=== PATIENT | female | born 1940 | race African-American/Black ===

== ENCOUNTER 2021-12-01 14:41 | Inpatient (IN) | payer MEDICARE, SELFPAY ==
--- NOTE | ~2021-12-01 | XR_ITS ---
EXAMINATION: XR chest 1V portable DATE: 12/09/2021 05:36 INDICATION: Hypoxia. TECHNIQUE: A single frontal view of the chest was obtained. COMPARISON: Chest single view 12/04/2021, chest CT 12/04/2021 FINDINGS: There is mild atelectasis at the lung bases. No pleural effusion or pneumothorax. The heart size is normal. IMPRESSION: 1. Mild atelectasis at the lung bases. Reviewed, dictated and finalized at location A.
--- NOTE | ~2021-12-01 | XR_ITS ---
EXAMINATION: XR chest 1V portable DATE: 12/04/2021 14:02 INDICATION: Dyspnea TECHNIQUE: frontal view of the chest was obtained. COMPARISON: Chest radiograph dated 12/01/2021 FINDINGS: And seen is mild elevation of the left hemidiaphragm. New mild bibasilar opacities which could repres ent atelectasis or pneumonia. Pulmonary vascular congestion without uma pulmonary edema. No pleural effusion or pneumothorax. Cardiomegaly. Tortuous and atherosclerotic thoracic aorta. IMPRESSION: 1. New mild bibasilar opacities which could represent atelectasis or pneumonia. 2. Cardiomegaly with pulmonary vascular congestion but without uma pulmonary edema. Reviewed, dictated and finalized at location A.
--- NOTE | ~2021-12-01 | CT_ITS ---
EXAMINATION: CTA chest PE protocol DATE: 12/04/2021 16:32 INDICATION: Dyspnea. Increased oxygen demand. Elevated d-dimer. TECHNIQUE: Computed tomography angiography (CTA) of the chest was performed with 100 mL Omnipaque-350 intravenous contrast timed to evaluate the pulmonary arteries. Coronal maximum intensity projection 3D-reconstructions were created by the technologist. Automated exposure control and iterative reconst ruction technique were employed. Exam dose: 287.50 mGy-cm total exam DLP. COMPARISON: 12/04/2021 portable AP chest FINDINGS: There is diagnostic contrast enhancement of the pulmonary arteries and no evidence of pulmo nary embolism. No thoracic aortic aneurysm or dissection is evident. Cardiomegaly. Coronary artery calcifications. No pericardial effusion. No hilar or mediastinal mass lesion or lymphadenopathy. Prominent emphysematous changes of the lungs. There is mild infiltrate or atelectasis in the dependent upper lobes and to a greater extent in the d ependent lower lobes. IMPRESSION: No evidence of pulmonary embolus Emphysema Bilateral upper and to a greater extent lower lobe dependent atelectasis/infiltrate Cardiomegaly, coronary atherosclerosis Reviewed, dictated and finalized at Location A. Reviewed, dictated and finalized at location A. IMPRESSION: No evidence of pulmonary embolus Emphysema Bilateral upper and to a greater extent lower lobe dependent atelectasis/infilt rate Cardiomegaly, coronary atherosclerosis
--- NOTE | ~2021-12-01 | XR_ITS ---
XR chest 2V DATE: 12/01/2021 17:51 INDICATION: Preoperative evaluation for foot surgery. History of hypertension. TECHNIQUE: AP and lateral views COMPARISON: None FINDINGS: There is prominent elevation of the left leaf of the diaphragm. Cardiomegaly. Aortic unfolding. No hilar or mediastinal enlargement. There is mild atelectasis or scarring at the lung bases. No pulmonary consolidation, pleural effusion , pulmonary vascular congestion or pneumothorax is detected. Diffuse osteopenia. There is mild loss of height and anterior wedging of a midthoracic vertebral body. IMPRESSION: Mild atelectasis or scarring at the lung bases Cardiomegaly Elevation of left diaphragm Reviewed, dictated and finalized at location A.
[2021-12-01 15:08] VITALS: BMI 23.0
[2021-12-01 15:20] VITALS: BP 112/78; PULSE 77; RESP 16; TEMP 35.9; O2SAT 97; BMI 23.0
--- NOTE | 2021-12-01 15:45 | ADMGEN ---
This patient, Dorene Pathak, was admitted to [facility] Surg Room 307-01 at 1430. Patient/family oriented to hospital policies and general routines including ID bracelet, bed and alarms, visiting hours, pain management, procedures, bathroom and other care routines, personal items, smoking policy, room service/diet, and visiting hours. Information on how to activate the Rapid Response Team has been discussed. Patient/Family are encouraged to report perceived risks to care and to ask questions if they do not understand what they are told or what they should do.
--- NOTE | 2021-12-01 17:11 | PM.IMHP ---
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 She had an unsuccessful peripheral vascular intervention by Dr. Kern at another facility. The leg was felt to be non-revascularizable and BKA was recommended. She was also treated by Levi Gunderson DPM. She came to my office this afternoon with persistent constant pain in the foot and a larger area of fouls smelling gangrenous ulcer of the left foot exposing tendon and bone. After discussion, she is admitted now with plans for left below knee amputation tomorrow. She has been living by herself, ambulating on her left leg, changing her own dressings with mupirocin and gauze. She is a chronic smoker. Review of Systems Review of Systems: All systems reviewed & are unremarkable except as noted in HPI and below (HPI and those noted below.) Constitutional: Constitutional: Denies chills and Denies fever(s) Cardiovascular: Cardiovascular: Denies chest pain, Denies diaphoresis, Denies dyspnea and Denies paroxysmal nocturnal dyspnea Respiratory: Respiratory: Denies chest congestion, Denies cough and Denies dyspnea Gastrointestinal: Gastrointestinal: Denies abdominal pain, Denies constipation, Denies GI cramping, Denies heartburn and Denies nausea Integumentary/Breasts: Skin/Breast: Denies lesions and Denies rash PMFSH Past Medical History Medical History High cholesterol Hypertension Surgical History Surgical History H/O bilateral cataract extraction History of recent vascular procedure Family History Family History Father Alcoholism Mother Hypertension Other Diabetes mellitus Kidney disease Social History Social History Smoking packs per day: 0.5 Smoking cigarettes per day: 10.0 Years smoked: 50 Smoking pack-years: 25.00 Smoking status: Current every day smoker Tobacco type: cigarettes Alcohol intake: never Substance use: never Substance use type: does not use 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 Spiritual care concerns: No Meds Home Medications and Allergies Home Medications Medication Instructions Recorded Confirmed Type rosuvastatin 10 mg tablet 10 mg PO DAILY 11/27/21 12/01/21 History tobramycin 0.3 % eye drops 1 drp EACH EYE Q4H 11/27/21 12/01/21 History diltiazem HCl [Matzim LA] 240 mg PO DAILY 12/01/21 12/01/21 History naproxen sodium 220 mg PO Q8H PRN 12/01/21 12/01/21 History tramadol 50 mg PO Q8H PRN 12/01/21 12/01/21 History Allergies Allergy/AdvReac Type Severity Reaction Status Date / Time Sulfa (Sulfonamide Allergy Severe ITCHING, Verified 12/01/21 13:25 Antibiotics) RASH quinine Allergy Mild RINGING IN Verified 12/01/21 13:25 EARS, SLURRED SPEECH, DROOPING EYE LID pravastatin AdvReac Intermediate rash Verified 12/01/21 13:25 ezetimibe AdvReac rash Verified 12/01/21 13:25 [From Vytorin 10-10] Quinidine-Quinine Analogues AdvReac shortness Verified 12/01/21 13:25 (Cincho of breath, slurred speech simvastatin AdvReac rash Verified 12/01/21 13:25 [From Vytorin 10-10] Vital Signs Vital Signs - 24 hr 12/01/21 15:20 Temperature 35.9 C L Pulse Rate 77 Respiratory Rate 16 Blood Pressure 112/78 Pulse Oximetry 97 Exam Const: General: comfortable, no acute distress, alert and awake HENMT: Head: normocephalic and atraumatic Mouth: Yes Normal oral and palatal mucosa present Eyes: Conjunctivae: conjunctivae normal Pupils: Equal, round and reactive pupils present EOM: EOMs intact bilaterally Neck: Neck: normal visu
[2021-12-01 17:56] LABS: Basophils Absolute Auto 0.1 K/mm3 (0.0-0.1); Basophils Percent Auto 0.8 % (0.2-1.2); Eosinophils Absolute Auto 0.4 K/mm3 (0-0.3); Eosinophils Percent Auto 3.8 % (0-4.4); Hematocrit 34.9 % (37.0-47.0); Hemoglobin 10.8 g/dL (12.0-15.0); Immature Granulocyte Absolute 0.04 K/mm3 (0.00-0.031); Immature Granulocyte Percent A 0.4 % (0-0.5); Lymphocytes Absolute Auto 2.13 K/mm3 (0.9-3.2); Lymphocytes Percent Auto 23.4 % (18.3-44.2); Mean Corpuscular HGB Conc 30.9 g/dl (32-36); Mean Corpuscular Hemoglobin 28.2 pg (26-34); Mean Corpuscular Volume 91.1 fl (80-100); Mean Platelet Volume 9.4 fl (7.4-10.4); Monocytes Absolute Auto 0.9 K/mm3 (0.1-0.6); Monocytes Percent Auto 9.9 % (2.6-8.5); Neutrophils Absolute Auto 5.6 K/mm3 (1.3-6.7); Neutrophils Percent Auto 61.7 % (45.5-73.1); Platelet Count Result 346 k/mm3 (150-375); Red Blood Count 3.83 M/mm3 (4.2-5.4); Red Cell Distribution Width 13.3 % (11.5-14.5); White Blood Count 9.1 K/mm3 (4.5-10.0)
[2021-12-01 18:08] LABS: INR 1.1; Prothrombin Time 13.4 Seconds (11.1-14.7)
[2021-12-01 18:09] LABS: Partial Thromboplastin Time 43.4 SECONDS (22.3-36.8)
[2021-12-01 18:12] LABS: Anion Gap 5 mmol/L (8-16); Blood Urea Nitrogen 14 mg/dL (7-17); Calcium 8.5 mg/dL (8.4-10.2); Carbon Dioxide 28 mmol/L (22-30); Chloride 98 mmol/L (98-107); Estimated CRCL calculation 35 ml/min; Estimated Glomerular Filt Rate > 60; Glucose 109 mg/dL (65-110); Potassium 3.8 mmol/L (3.4-5.0); Sodium 131 mmol/L (137-145)
[2021-12-01] MEDS: ceFAZolin 2 GM/D5W 50 ML 2 GM/50 ML BAG IVPB (18:32)
[2021-12-01] MEDS: MORPHINE SULFATE (*CRX) 2 MG/ML INJ IV PUSH ×2 (18:37→22:16)
[2021-12-01] MEDS: DEXTROSE 5%/0.9% SOD CHL 1,000 ML 60 ML IV CONT (18:37)
[2021-12-01] MEDS: FAMOTIDINE 20 MG/2 ML VIAL IV PUSH (20:43)
[2021-12-01] MEDS: TOBRAMYCIN SULFATE 0.3% OPHTH SOLN 5 ML 1 DROP EACH EYE (20:43)
[2021-12-01 22:00] VITALS: BP 120/53; PULSE 73; RESP 16; TEMP 36.8; O2SAT 93
[2021-12-02] VITALS (12 sets, daily range): BP systolic 108–150; BP diastolic 52–82; PULSE 60–96; RESP 18–20; TEMP 36.1–37; O2SAT 90–100
[2021-12-02] MEDS: ceFAZolin 2 GM/D5W 50 ML 2 GM/50 ML BAG IVPB ×3 (02:19→17:35)
--- NOTE | 2021-12-02 08:30 | PM.IMCN ---
Assessment and Plan Assessment and plan (1) Non-healing wound of left lower extremity: Code(s): S81.802A - Unspecified open wound, left lower leg, initial encounter Status: Chronic Assessment and Plan: Reported 1 month of non-healing foot wound GS consulted Surgical procedure scheduled for today Morphine and tramadol for pain Cefazolin 2gm Q8Hr Post op care per general surgery NPO EKG ordered (2) Ischemic pain of left foot: Code(s): M79.672 - Pain in left foot; I99.8 - Other disorder of circulatory system Status: Chronic Assessment and Plan: Pain medications on board Surgery consulted Scheduled BKA See above (3) Gangrene of left foot: Code(s): I96 - Gangrene, not elsewhere classified Status: Chronic Assessment and Plan: Multiple areas of noted gangrene Antibiotics on board BKA scheduled for today (4) Tobacco abuse: Code(s): Z72.0 - Tobacco use Status: Chronic Assessment and Plan: Patch ordered Smoking cessation given (5) Hyperlipidemia: Code(s): E78.5 - Hyperlipidemia, unspecified Status: Acute Assessment and Plan: Continue home crestor (6) Afib: Code(s): I48.91 - Unspecified atrial fibrillation Status: Acute Assessment and Plan: Reports tachycardia Continue home Cardizem Trend heart rate EKG ordered yesterday, still not in chart will keep an eye out for it Additional Plan Thank you for letting us work with you on this case please call with any needs or questions HPI Data of Consult Consult date: 12/02/21 Requesting Physician: Harlan Vasquez MD Primary Care Provider: Raj Zamorano, Consult Narrative Narrative: Dorene Pathak is a 81 year old female Who has a past medical history of hyperlipidemia, hypertension who was a direct admit from Dr. Elizalde office. Patient has been battling a leg wound for about a month with severe pain and nonhealing. Patient stated that she has been going [facility] on Wednesdays for dressing changes and close monitoring. She stated that most the time her pain is a 10/10 and sometimes even a 10+. She stated that the pain is like a spasm and the whole body jerks. She does admit to eating okay and she has no Appetite changes at this time. she denies any chest pain, shortness of breath, nausea, vomiting, sweats, fevers, chills, diarrhea, constipation, numbness and tingling, lightheadedness, dizziness. did ask patient about her medications which she is on diltiazem. Patient stated she does not know why she is on diltiazem However she did have few times where her heart rate was very high. Since she has been taking the Cardizem heart rate has been normal. we were asked to consult for pre Surgical Services. Risk for surgery is moderate due to age and tobacco history. Review of Systems Review of Systems: All systems reviewed & are unremarkable except as noted in HPI and below PMFSH Past Medical History Medical History High cholesterol Hypertension Surgical History Surgical History H/O bilateral cataract extraction History of recent vascular procedure Family History Family History Father Alcoholism Mother Hypertension Other Diabetes mellitus Kidney disease Social History Social History (Updated 12/02/21 @ 13:27 by LATOYA Sher) Social History: Patient is a Christianity and lives by herself. she has 3 adult children who are sons and 2 grandchildren. Patient does not have any pets and wishes to be a full code at this time Smoking packs per day: 0.5 Smoking cigarettes per day: 10.0 Years smoked: 50 Smoking pack-years: 25.00 Smoking status: Current every d
[2021-12-02] MEDS: FAMOTIDINE 20 MG/2 ML VIAL IV PUSH (09:03)
[2021-12-02] MEDS: TOBRAMYCIN SULFATE 0.3% OPHTH SOLN 5 ML 1 DROP EACH EYE ×3 (09:06→20:28)
[2021-12-02] MEDS: traMADol HCL (*CRX) 50 MG TABLET PO (09:13)
--- NOTE | 2021-12-02 11:27 | PC.NURSE ---
To OR per [bed], IV [22 G L FA]. Report given to [OR, Trinity, RN Left at 1124 AM
[2021-12-02] MEDS: LACTATED RINGERS 1,000 ML 30 ML IV CONT ×2 (11:35→14:05)
--- NOTE | 2021-12-02 11:43 | WPDHPUPDATE1 ---
History and Physical Update Update Date/Time: 12/02/21 11:43 History and Physical has been reviewed, including an updated exam of the patient. There are NO changes in the patient's condition. Risks, benefits, and alternatives have been discussed and questions answered. Patient agrees to proceed with procedure.
--- NOTE | 2021-12-02 11:54 | WPDANESEPPF ---
Anes - Initial Pre Proc Eval Procedure: Operation Date: 12/02/21 13:00 Proposed Procedures p Left Below Knee Amputation - Harlan Vasquez MD Date/Time: 12/02/21 11:54 Surgeon: Harlan Vasquez MD Pre Op Diagnosis: Gangrene to Left Foot Patient Data Age: 81 Gender: F Height: 1.57 m Weight: 57.1 kg Last Vital Signs Temp 97 F L 12/02/21 06:00 Pulse 95 12/02/21 06:00 Resp 18 12/02/21 06:00 BP 140/75 12/02/21 06:00 Pulse Ox 90 12/02/21 06:00 Allergies Allergy/AdvReac Type Severity Reaction Status Date / Time Sulfa (Sulfonamide Allergy Severe ITCHING, Verified 12/01/21 13:25 Antibiotics) RASH quinine Allergy Mild RINGING IN Verified 12/01/21 13:25 EARS, SLURRED SPEECH, DROOPING EYE LID pravastatin AdvReac Intermediate rash Verified 12/01/21 13:25 ezetimibe AdvReac rash Verified 12/01/21 13:25 [From Vytorin 10-10] Quinidine-Quinine Analogues AdvReac shortness Verified 12/01/21 13:25 (Cincho of breath, slurred speech simvastatin AdvReac rash Verified 12/01/21 13:25 [From Vytorin 10-10] Home Medications Medication Instructions Recorded Confirmed Type rosuvastatin 10 mg tablet 10 mg PO DAILY 11/27/21 12/01/21 History tobramycin 0.3 % eye drops 1 drp EACH EYE Q4H 11/27/21 12/01/21 History diltiazem HCl [Matzim LA] 240 mg PO DAILY 12/01/21 12/01/21 History naproxen sodium 220 mg PO Q8H PRN 12/01/21 12/01/21 History tramadol 50 mg PO Q8H PRN 12/01/21 12/01/21 History Laboratory Tests 12/01/21 12/01/21 12/01/21 17:43 17:43 17:43 WBC 9.1 K/mm3 K/mm3 (4.5-10.0) RBC 3.83 M/mm3 L M/mm3 (4.2-5.4) Hgb 10.8 g/dL L g/dL (12.0-15.0) Hct 34.9 % L % (37.0-47.0) MCV 91.1 fl fl (80-100) MCH 28.2 pg pg (26-34) MCHC 30.9 g/dl L g/dl (32-36) RDW 13.3 % % (11.5-14.5) Plt Count 346 k/mm3 k/mm3 (150-375) MPV 9.4 fl fl (7.4-10.4) Immature Gran % (Auto) 0.4 % % (0-0.5) Neut % (Auto) 61.7 % % (45.5-73.1) Lymph % (Auto) 23.4 % % (18.3-44.2) [place] % (Auto) 9.9 % H % (2.6-8.5) Eos % (Auto) 3.8 % % (0-4.4) Baso % (Auto) 0.8 % % (0.2-1.2) Lymph # (Auto) 2.13 K/mm3 K/mm3 (0.9-3.2) [place] # (Auto) 0.9 K/mm3 H K/mm3 (0.1-0.6) Eos # (Auto) 0.4 K/mm3 H K/mm3 (0-0.3) Baso # (Auto) 0.1 K/mm3 K/mm3 (0.0-0.1) Abs Immat Gran (auto) 0.04 K/mm3 H K/mm3 (0.00-0.031) Absolute Neuts (auto) 5.6 K/mm3 K/mm3 (1.3-6.7) Absolute Nucleated RBC 0.0 K/mm3 K/mm3 (0.0-0.012) Nucleated RBC % 0.0 % % (0.0-0.2) PT 13.4 Seconds Seconds (11.1-14.7) INR 1.1 APTT 43.4 SECONDS H SECONDS (22.3-36.8) Sodium 131 mmol/L L mmol/L (137-145) Potassium 3.8 mmol/L mmol/L (3.4-5.0) Chloride 98 mmol/L mmol/L (98-107) Carbon Dioxide 28 mmol/L mmol/L (22-30) Anion Gap 5 mmol/L L mmol/L (8-16) BUN 14 mg/dL mg/dL (7-17) Creatinine 0.90 mg/dL mg/dL (0.7-1.0) Estim Creat Clear Calc 35 ml/min ml/min Estimated GFR > 60 (59 - ) Glucose 109 mg/dL mg/dL (65-110) Calcium 8.5 mg/dL mg/dL (8.4-10.2) Blood Type Antibody Screen 12/01/21 17:43 WBC RBC Hgb Hct MCV MCH MCHC RDW Plt Count MPV Immature Gran % (Auto) Neut % (Auto) Lymph % (Auto) [place] % (Auto) Eos % (Auto) Baso % (Auto) Lymph # (Auto) [place] # (Auto) Eos # (Auto) Baso # (Auto) Abs Immat Gran (auto) Absolute Neuts (auto) Absolute Nucleated RBC Nucleated RBC % PT INR APTT Sodium Potassium Chloride
[2021-12-02 14:28] LABS: Glucose Point of Care 99 mg/dl (65-105)
--- NOTE | 2021-12-02 14:44 | W.PM.PROC2 ---
Procedure Note - Detailed Date of Procedure 12/02/21 Pre-op Diagnosis Gangrene to Left Foot Post-op Diagnosis Same Procedure Performed Left below-knee amputation Surgeon Harlan Vasquez MD [employer] Operator Krista BOLANOS Anesthesia General Indications Patient has had a nonhealing wound on the instep of her foot for at least a month. She had an attempted vascular reconstruction which was not successful. She has seen Podiatry. Her foot has gotten worse. She was seen yesterday in the office for the 1st time. She had a foul-smelling gangrenous left foot with open wound on the instep. There was exposed tendon. She was having ischemic pain. She was admitted to the hospital and started on IV antibiotics. She is taken to surgery now for left below-knee amputation. Findings Tissues appeared healthy although severe atherosclerosis and the lower extremity arteries. Perfusion of the amputation site seemed to be quite adequate to heal the below-knee amputation. Description of Procedure Patient was taken to surgery and induced into general anesthesia. The left leg was prepped and draped starting at about the mid thigh on down. The area of the ischemic gangrenous foot was wrapped and covered so it was sterile and in the field. A proposed posterior flap incision was drawn on the skin. Incision was then made over lines previously drawn. Cautery was used for hemostasis as well as the superficial dissection. The subcutaneous tissues were quite edematous from the gangrenous foot on distal. We dissected out the tibia below the knee. I also divided muscles on either side of the tibia. Vascular structures that were encountered were doubly clamped divided and ligated with Vicryl ties. The saphenous vein was doubly ligated divided and tied with 3-0 Vicryl. The fibula was found and was dissected from its surrounding tissues. The peroneal vessels were avoided. I then used the periosteal elevator and exposed the fibula fairly high in the amputation stump. I continued dissection around the tibia. The periosteal elevator was then used to mobilize the periosteum proximally on the tibia. I used the Gigli saw to divide the fibula. An oscillating saw was used to divide the tibia. I then used the oscillating saw to remove an angled cut of the anterior edge of the distal tibia so it would not create pressure on the flap. The rasp was used to smooth the bone edges. The popliteal vessels were then dissected. They were clamped divided and each side ligated with 2 0 Vicryl ties. Popliteal nerve was divided with the cautery. Perineal vessels and tibial vessels were divided after being clamped. Each was tied as well. I then used the amputation knife and divided the remaining attachments to the posterior flap. The left lower leg was passed off as a specimen. We exposed the posterior flap and the amputation site. Cautery was used to achieve good hemostasis. The wound was thoroughly irrigated with warm saline. We checked again for hemostasis which was adequate. I then sutured the subcutaneous fascia from the posterior flap to the anterior edge of the amputation wound. This was done in with interrupted 2 0 Vicryl suture. These suture were placed multiple times so there was a cm or less between suture. All looked good. The muscles and subcutaneous were edematous as I mentioned before but not to a degree that would impair healing. We then closed the skin with vertical mattress sutures of 2-0 nylon in interrupted fashion. The amputation stump was then washed with saline and dried. Xeroform gauze was placed over the incision. Fluffs were placed and a wrap of Kerlix was placed. We then placed a couple of layers of Webril over the left leg including the stump of the amputation. A posterior plaster splint was placed keeping the left knee in extension. We placed additional Webril as well as Kerlix roll or over the plaster. The plaster was held in place until it was hardened. Add
--- NOTE | 2021-12-02 15:11 | SUR.PHASEI ---
DONALD IS ALERT AND ORIENTED, DENIES PAIN. STATES I'M DOING FINE . RESTING COMFORTABLY.
--- NOTE | 2021-12-02 15:59 | PC.NURSE ---
Returned from OR per bed. Report received from MARILY Bennett.
[2021-12-02] MEDS: LACTATED RINGERS 1,000 ML 100 ML IV CONT (17:34)
[2021-12-02 17:36] LABS: EDCOVIDSCREEN Negative (Negative)
[2021-12-02] MEDS: HYDROcodone/acetaminophen (*CRX) 7.5-325 MG TABLET 1 TAB PO (19:07)
[2021-12-02] MEDS: FAMOTIDINE 20 MG TABLET PO (20:28)
[2021-12-02] MEDS: ENOXAPARIN 30 MG/0.3 ML SYRINGE SUB-Q (20:28)
[2021-12-03] VITALS: BP 115/68; PULSE 91; RESP 20; TEMP 36.3; O2SAT 97
[2021-12-03] MEDS: ceFAZolin 2 GM/D5W 50 ML 2 GM/50 ML BAG IVPB ×3 (01:42→19:13)
[2021-12-03 04:00] VITALS: BP 134/65; PULSE 92; RESP 16; TEMP 36.1; O2SAT 90
[2021-12-03] MEDS: TOBRAMYCIN SULFATE 0.3% OPHTH SOLN 5 ML 1 DROP EACH EYE ×5 (05:32→20:29)
[2021-12-03] MEDS: LACTATED RINGERS 1,000 ML 100 ML IV CONT (05:32)
[2021-12-03 06:47] LABS: Alanine Aminotransferase 14 U/L (4-35); Albumin Level 2.8 g/dL (3.5-5.1); Alkaline Phosphatase 74 U/L (38-126); Anion Gap 5 mmol/L (8-16); Aspartate Amino Transferase 45 U/L (14-36); Bilirubin,Total 0.5 mg/dL (0.2-1.3); Blood Urea Nitrogen 9 mg/dL (7-17); Calcium 7.8 mg/dL (8.4-10.2); Carbon Dioxide 26 mmol/L (22-30); Chloride 93 mmol/L (98-107); Estimated CRCL calculation 35 ml/min; Estimated Glomerular Filt Rate > 60; Glucose 88 mg/dL (65-110); Magnesium 1.5 mg/dL (1.6-2.3); Potassium 3.8 mmol/L (3.4-5.0); Sodium 124 mmol/L (137-145)
[2021-12-03 06:53] LABS: Basophils Percent Auto 0.4 % (0.2-1.2); Eosinophils Absolute Auto 0.1 K/mm3 (0-0.3); Eosinophils Percent Auto 0.6 % (0-4.4); Hematocrit 32.1 % (37.0-47.0); Hemoglobin 10.4 g/dL (12.0-15.0); Immature Granulocyte Absolute 0.05 K/mm3 (0.00-0.031); Immature Granulocyte Percent A 0.5 % (0-0.5); Lymphocytes Absolute Auto 1.35 K/mm3 (0.9-3.2); Lymphocytes Percent Auto 13.9 % (18.3-44.2); Mean Corpuscular HGB Conc 32.4 g/dl (32-36); Mean Corpuscular Hemoglobin 28.3 pg (26-34); Mean Corpuscular Volume 87.5 fl (80-100); Mean Platelet Volume 9.5 fl (7.4-10.4); Monocytes Absolute Auto 0.9 K/mm3 (0.1-0.6); Monocytes Percent Auto 8.7 % (2.6-8.5); Neutrophils Absolute Auto 7.4 K/mm3 (1.3-6.7); Neutrophils Percent Auto 75.9 % (45.5-73.1); Platelet Count Result 298 k/mm3 (150-375); Red Blood Count 3.67 M/mm3 (4.2-5.4); White Blood Count 9.7 K/mm3 (4.5-10.0)
[2021-12-03 08:00] VITALS: BP 142/64; PULSE 95; RESP 16; TEMP 36.1; O2SAT 95; O2SAT 96
[2021-12-03 08:50] VITALS: O2SAT 95
[2021-12-03] MEDS: FAMOTIDINE 20 MG TABLET PO ×2 (09:08→20:28)
[2021-12-03] MEDS: ENOXAPARIN 30 MG/0.3 ML SYRINGE SUB-Q ×2 (09:08→20:28)
[2021-12-03] MEDS: ROSUVASTATIN 10 MG TABLET PO (09:09)
[2021-12-03] MEDS: MAGNESIUM SULF 4 GM/WATER100ML 4 GM/100 ML BAG IVPB (09:32)
--- NOTE | 2021-12-03 10:30 | PM.IMPN ---
Progress Note: A&P Assessment and Plan (1) Non-healing wound of left lower extremity: Code(s): S81.802A - Unspecified open wound, left lower leg, initial encounter Status: Chronic Assessment and Plan: POD 1 Reported 1 month of non-healing foot wound GS consulted Surgical procedure 12/02/21 New BKA noted Morphine and tramadol for pain Cefazolin 2gm Q8Hr Post op care per general surgery Low fiber diet EKG ordered Will need placement for rehab PT/OT tomorrow (2) Hyponatremia: Code(s): E87.1 - Hypo-osmolality and hyponatremia Status: Acute Assessment and Plan: Sodium was 131, today 124 Could be related to surgical procedure Check urine studies LR changed to NS Trend labs Q4hr to ensure patient is not correcting too fast (3) Ischemic pain of left foot: Code(s): M79.672 - Pain in left foot; I99.8 - Other disorder of circulatory system Status: Chronic Assessment and Plan: Pain medications on board Surgery consulted Scheduled BKA See above (4) Gangrene of left foot: Code(s): I96 - Gangrene, not elsewhere classified Status: Chronic Assessment and Plan: Multiple areas of noted gangrene Antibiotics on board BKA scheduled 12/02/21 (5) Tobacco abuse: Code(s): Z72.0 - Tobacco use Status: Chronic Assessment and Plan: Patch ordered Smoking cessation given (6) Hyperlipidemia: Code(s): E78.5 - Hyperlipidemia, unspecified Status: Acute Assessment and Plan: Continue home crestor (7) Afib: Code(s): I48.91 - Unspecified atrial fibrillation Status: Acute Assessment and Plan: Reports tachycardia Continue home Cardizem Trend heart rate EKG ordered yesterday, still not in chart will keep an eye out for it Time Spent With Patient Time with patient: Greater than 35 minutes Subjective Date/time seen: 12/03/21 10:30 Interval history: 12/02/21 Dorene Pathak is a 81 year old female Who has a past medical history of hyperlipidemia, hypertension who was a direct admit from Dr. Elizalde office. Patient has been battling a leg wound for about a month with severe pain and nonhealing. Patient stated that she has been going to [facility] on Wednesdays for dressing changes and close monitoring. She stated that most the time her pain is a 10/10 and sometimes even a 10+. She stated that the pain is like a spasm and the whole body jerks. She does admit to eating okay and she has no Appetite changes at this time. she denies any chest pain, shortness of breath, nausea, vomiting, sweats, fevers, chills, diarrhea, constipation, numbness and tingling, lightheadedness, dizziness. did ask patient about her medications which she is on diltiazem. Patient stated she does not know why she is on diltiazem However she did have few times where her heart rate was very high. Since she has been taking the Cardizem heart rate has been normal. we were asked to consult for pre Surgical Services. Risk for surgery is moderate due to age and tobacco history. 12/03/21 1030 patient was on the phone I walked in to examine her. She stated that she has was uncomfortable and would like to pillow removed from under her leg. She did say that she had pain especially when she was around or they work with her leg. She denies any chest pain, nausea, vomiting, diarrhea, shortness of breath, weakness or fatigue. She did state that she was having hard time staying awake today. Sodium was noted to be low at 124. Patient was started on IV fluids for correction. Will continue to monitor sodium every 4 hours for right now. Review of Systems Review of Systems: All systems reviewed & are unremarkable except as noted in HPI and below Exam Const: General: cooperative, healthy appearing, no acute distress, well developed, alert and awake
--- NOTE | 2021-12-03 10:30 | P.PNIM_ITS ---
Progress Note: A&P Assessment and Plan (1) Non-healing wound of left lower extremity: Code(s): S81.802A - Unspecified open wound, left lower leg, initial encounter Status: Chronic Assessment and Plan: * POD 1 * Reported 1 month of non-healing foot wound * GS consulted * Surgical procedure 12/02/21 * New BKA noted * Morphine and tramadol for pain * Cefazolin 2gm Q8Hr * Post op care per general surgery * Low fiber diet * EKG ordered * Will need placement for rehab * PT/OT tomorrow (2) Hyponatremia: Code(s): E87.1 - Hypo-osmolality and hyponatremia Status: Acute Assessment and Plan: * Sodium was 131, today 124 * Could be related to surgical procedure * Check urine studies * LR changed to NS * Trend labs Q4hr to ensure patient is not correcting too fast (3) Ischemic pain of left foot: Code(s): M79.672 - Pain in left foot; I99.8 - Other disorder of circulatory system Status: Chronic Assessment and Plan: * Pain medications on board * Surgery consulted * Scheduled BKA * See above (4) Gangrene of left foot: Code(s): I96 - Gangrene, not elsewhere classified Status: Chronic Assessment and Plan: * Multiple areas of noted gangrene * Antibiotics on board * BKA scheduled 12/02/21 (5) Tobacco abuse: Code(s): Z72.0 - Tobacco use Status: Chronic Assessment and Plan: * Patch ordered * Smoking cessation given (6) Hyperlipidemia: Code(s): E78.5 - Hyperlipidemia, unspecified Status: Acute Assessment and Plan: * Continue home crestor (7) Afib: Code(s): I48.91 - Unspecified atrial fibrillation Status: Acute Assessment and Plan: * Reports tachycardia * Continue home Cardizem * Trend heart rate * EKG ordered yesterday, still not in chart will keep an eye out for it Time Spent With Patient Time with patient: Greater than 35 minutes Subjective Date/time seen: 12/03/21 10:30 Interval history: 12/02/21 Dorene Pathak is a 81 year old female Who has a past medical history of hyperlipidemia, hypertension who was a direct admit from Dr. Elizalde office. Patient has been battling a leg wound for about a month with severe pain and nonhealing. Patient stated that she has been going [facility] for dressing changes and close monitoring. She stated that most the time her pain is a 10/10 and sometimes even a 10+. She stated that the pain is like a spasm and the whole body jerks. She does admit to eating okay and she has no Appetite changes at this time. she denies any chest pain, shortness of breath, nausea, vomiting, sweats, fevers, chills, diarrhea, constipation, numbness and tingling, lightheadedness, dizziness. did ask patient about her medications which she is on diltiazem. Patient stated she does not know why she is on diltiazem However she did have few times where her heart rate was very high. Since she has been taking the Cardizem heart rate has been normal. we were asked to consult for pre Surgical Services. Risk for surgery is moderate due to age and tobacco history. 12/03/21 1030 patient was on the phone I walked in to examine her. She stated that she has was uncomfortable and would like to pillow removed from under her leg. She did say that she had pain especially when she was around or they work with her leg. She denie
[2021-12-03] MEDS: SODIUM CHLORIDE 0.9% IV 1,000 ML 100 ML IV CONT ×2 (10:44→21:13)
[2021-12-03 11:11] LABS: Sodium 124 mmol/L (137-145)
--- NOTE | 2021-12-03 13:06 | PM.PNGS ---
Progress Note: A&P Assessment and Plan (1) Non-healing wound of left lower extremity: Code(s): S81.802A - Unspecified open wound, left lower leg, initial encounter Status: Chronic Assessment and Plan: POD#1 and patient doing well. Pain well-controlled. Will plan on changing her dressing in the next 1-2 days. If she continues to do well, will plan on starting PT/OT tomorrow. Encourage IS use. Repeat labs tomorrow. (2) Ischemic pain of left foot: Code(s): M79.672 - Pain in left foot; I99.8 - Other disorder of circulatory system Status: Chronic (3) Gangrene of left foot: Code(s): I96 - Gangrene, not elsewhere classified Status: Chronic (4) Hyponatremia: Code(s): E87.1 - Hypo-osmolality and hyponatremia Status: Acute Assessment and Plan: Sodium down to 124 today. Patient tolerating oral intake, but has not taken in much orally due to not liking food. Hospitalist started IV fluids with normal saline and ordered further urine tests. Monitor labs. (5) Tobacco abuse: Code(s): Z72.0 - Tobacco use Status: Chronic Additional Plan I have discussed the patient's case and plan of care with Dr. Vasquez. Magnesium also slightly low and replaced with IV mag sulfate by Hospitalist this morning. Monitor labs. Subjective Subjective Date/Time Seen: 12/03/21 13:06 Post Op day: 1 (Left BKA) Patient reports: flatus and afebrile Interval history: Patient seen and examined. She reports feeling well today but a little loopy since surgery. She denies confusion or any neurological deficits. She denies any pain on my exam and has only taken one [place] yesterday evening. She denies nausea, vomiting, or bloating. She is tolerating oral intake, but does not like the food she has ordered therefore has not eaten much off her tray. No other complaints at this time. Review of Systems Review of Systems: All systems reviewed & are unremarkable except as noted in HPI and below Constitutional: Constitutional: Reports as per HPI, Reports no additional constitutional complaints, Denies chills and Denies fever(s) Cardiovascular: Cardiovascular: Reports no additional cardiovascular complaints, Denies chest pain and Denies leg edema Respiratory: Respiratory: Reports no additional respiratory complaints, Denies cough and Denies dyspnea Gastrointestinal: Gastrointestinal: Reports as per HPI and Reports no additional gastrointestinal complaints Neurologic: Reports system reviewed and no additional complaints, except as documented, Denies Abnormal speech present and Denies focal weakness Exam Const: General: comfortable, no acute distress, alert and awake Orientation/consciousness: patient oriented x3 Resp: Effort & Inspection: normal respiratory effort Auscultation: clear to auscultation bilaterally Cardio: Rate: regular rate Rhythm: regular rhythm GI: Inspection: non-distended GI Palp: Yes Soft to palpation and No Tenderness to palpation present (GI) Auscultation: normal bowel sounds Skin: General skin exam: normal color Neuro: General: moves all extremities and no focal motor deficits Speech: No Abnormal speech present Extrem: General: amputation noted (left BKA with post-op dressing in place and dry) and no edema (no right lower ext edema) Psych: Insight: Good insight present (Psych) Judgement: Good judgement present (Psych) Objective Data Vital Signs Vital Signs: Vital Signs - 24 hr 12/02/21 14:05 12/02/21 14:20 12/02/21 14:35 Temperature 98.6 F Pulse Rate 60 62 72 Respiratory Rate 18 20 20 Blood Pressure 108/59 L 121/62 118/67 Pulse Oximetry 100 97 100 12/02/21 14:50 12/02/21 15:05 12/02/21 15:40 Temperature 96.9 F L Pulse Rate 72 70 68 Respiratory Rate 20 20 20 Blood Pressure 110/67 110/58 L 110/63 Pulse Oximetry 97 97 93 12/02/21 15:56 12/02/21 16:24 12/02/21 20:00 Temperature 98.4 F 98.4 F 98 F Pulse Rate 77 74 94 Respiratory Rate 20 18 20 Blood Pres
[2021-12-03 15:09] LABS: Sodium 123 mmol/L (137-145)
[2021-12-03 16:00] VITALS: BP 134/54; PULSE 82; RESP 20; TEMP 36.4; O2SAT 93
--- NOTE | 2021-12-03 18:15 | PC.NURSE ---
Incentive spirometer provided to pt. Educated on use.
[2021-12-03 20:09] LABS: Sodium 125 mmol/L (137-145)
[2021-12-03 22:00] VITALS: BP 104/86; PULSE 96; RESP 34; TEMP 36.8
[2021-12-03 23:08] LABS: Sodium 124 mmol/L (137-145)
[2021-12-04] VITALS (7 sets, daily range): BP systolic 114–124; BP diastolic 59–76; PULSE 72–87; RESP 14–30; TEMP 36.2–36.9; O2SAT 84–100
[2021-12-04] MEDS: ceFAZolin 2 GM/D5W 50 ML 2 GM/50 ML BAG IVPB ×3 (01:37→17:41)
[2021-12-04 06:08] LABS: Basophils Absolute Auto 0.1 K/mm3 (0.0-0.1); Basophils Percent Auto 0.4 % (0.2-1.2); Eosinophils Percent Auto 0.3 % (0-4.4); Hematocrit 29.7 % (37.0-47.0); Hemoglobin 9.5 g/dL (12.0-15.0); Immature Granulocyte Percent A 0.8 % (0-0.5); Lymphocytes Absolute Auto 1.84 K/mm3 (0.9-3.2); Lymphocytes Percent Auto 13.8 % (18.3-44.2); Mean Corpuscular Hemoglobin 28.5 pg (26-34); Mean Corpuscular Volume 89.2 fl (80-100); Mean Platelet Volume 9.5 fl (7.4-10.4); Monocytes Absolute Auto 1.4 K/mm3 (0.1-0.6); Monocytes Percent Auto 10.4 % (2.6-8.5); Neutrophils Absolute Auto 9.9 K/mm3 (1.3-6.7); Neutrophils Percent Auto 74.3 % (45.5-73.1); Platelet Count Result 267 k/mm3 (150-375); Red Blood Count 3.33 M/mm3 (4.2-5.4); Red Cell Distribution Width 12.8 % (11.5-14.5); White Blood Count 13.3 K/mm3 (4.5-10.0)
[2021-12-04 06:21] LABS: Potassium 3.4 mmol/L (3.4-5.0)
[2021-12-04 06:23] LABS: Anion Gap 5 mmol/L (8-16); Blood Urea Nitrogen 6 mg/dL (7-17); Calcium 7.1 mg/dL (8.4-10.2); Carbon Dioxide 26 mmol/L (22-30); Chloride 94 mmol/L (98-107); Estimated CRCL calculation 39 ml/min; Estimated Glomerular Filt Rate > 60; Glucose 93 mg/dL (65-110); Magnesium 2.1 mg/dL (1.6-2.3); Sodium 125 mmol/L (137-145)
[2021-12-04] MEDS: ROSUVASTATIN 10 MG TABLET PO (09:53)
[2021-12-04] MEDS: FAMOTIDINE 20 MG TABLET PO ×2 (09:53→19:41)
[2021-12-04] MEDS: ENOXAPARIN 30 MG/0.3 ML SYRINGE SUB-Q ×2 (09:55→19:40)
[2021-12-04] MEDS: SODIUM CHLORIDE 0.9% IV 1,000 ML 100 ML IV CONT ×2 (09:55→19:41)
[2021-12-04] MEDS: TOBRAMYCIN SULFATE 0.3% OPHTH SOLN 5 ML 1 DROP EACH EYE ×3 (09:55→19:42)
--- NOTE | 2021-12-04 10:15 | PM.IMPN ---
Progress Note: A&P Assessment and Plan (1) Non-healing wound of left lower extremity: Code(s): S81.802A - Unspecified open wound, left lower leg, initial encounter Status: Chronic Assessment and Plan: POD 2 Reported 1 month of non-healing foot wound GS consulted Surgical procedure 12/02/21 New BKA noted Morphine and tramadol for pain Cefazolin 2gm Q8Hr Post op care per general surgery Low fiber diet EKG cancelled Will need placement for rehab PT/OT tomorrow (2) Acute respiratory failure: Code(s): J96.00 - Acute respiratory failure, unspecified whether with hypoxia or hypercapnia Status: Acute Assessment and Plan: Patient is noted to be tachypneic with an O2 saturation of 84. Supplemental oxygen has been provided at 3 L nasal cannula Patient is unable to complete full sentences and is tripoding. ABGs ordered and pending Chest x-ray shows pulmonary vascular congestion without pulmonary edema with a new mild bibasilar opacity which could represent atelectasis or pneumonia D-dimer is also being collected CTA might be beneficial as patient might be having a PE Continue to trend respiratory status (3) Hyponatremia: Code(s): E87.1 - Hypo-osmolality and hyponatremia Status: Acute Assessment and Plan: Sodium was 131, today 125 Could be related to surgical procedure Check urine studies LR changed to NS Trend labs Q4hr to ensure patient is not correcting too fast FENa score is 2.2 Looks like she is excreting sodium from the urinary system Nephrology consulted thank you for your help Will start sodium tabs for now (4) Ischemic pain of left foot: Code(s): M79.672 - Pain in left foot; I99.8 - Other disorder of circulatory system Status: Chronic Assessment and Plan: Pain medications on board Surgery consulted thank you for your recommendations Scheduled BKA See above (5) Gangrene of left foot: Code(s): I96 - Gangrene, not elsewhere classified Status: Chronic Assessment and Plan: Multiple areas of noted gangrene Antibiotics on board BKA scheduled 12/02/21 (6) Tobacco abuse: Code(s): Z72.0 - Tobacco use Status: Chronic Assessment and Plan: Patch ordered Smoking cessation given (7) Hyperlipidemia: Code(s): E78.5 - Hyperlipidemia, unspecified Status: Acute Assessment and Plan: Continue home crestor (8) Afib: Code(s): I48.91 - Unspecified atrial fibrillation Status: Acute Assessment and Plan: Reports tachycardia Continue home Cardizem Trend heart rate EKG cancelled at this time (9) D-dimer, elevated: Code(s): R79.89 - Other specified abnormal findings of blood chemistry Status: Acute Assessment and Plan: D. Dimer elevated at 1.52 CTA of the chest ordered Lovenox on board Continue to trend respiratory status Time Spent With Patient Time with patient: Greater than 35 minutes Subjective Date/time seen: 12/04/21 1015 Interval history: 12/02/21 Dorene Pathak is a 81 year old female Who has a past medical history of hyperlipidemia, hypertension who was a direct admit from Dr. Elizalde office. Patient has been battling a leg wound for about a month with severe pain and nonhealing. Patient stated that she has been going to [facility] on [facility] for dressing changes and close monitoring. She stated that most the time her pain is a 10/10 and sometimes even a 10+. She stated that the pain is like a spasm and the whole body jerks. She does admit to eating okay and she has no Appetite changes at this time. she denies any chest pain, shortness of breath, nausea, vomiting, sweats, fevers, chills, diarrhea, constipation, numbness and tingling, lightheadedness, dizziness. did ask patient about her medications which she is on
--- NOTE | 2021-12-04 10:15 | P.PNIM_ITS ---
Progress Note: A&P Assessment and Plan (1) Non-healing wound of left lower extremity: Code(s): S81.802A - Unspecified open wound, left lower leg, initial encounter Status: Chronic Assessment and Plan: * POD 2 * Reported 1 month of non-healing foot wound * GS consulted * Surgical procedure 12/02/21 * New BKA noted * Morphine and tramadol for pain * Cefazolin 2gm Q8Hr * Post op care per general surgery * Low fiber diet * EKG cancelled * Will need placement for rehab * PT/OT tomorrow (2) Acute respiratory failure: Code(s): J96.00 - Acute respiratory failure, unspecified whether with hypoxia or hypercapnia Status: Acute Assessment and Plan: * Patient is noted to be tachypneic with an O2 saturation of 84. * Supplemental oxygen has been provided at 3 L nasal cannula * Patient is unable to complete full sentences and is tripoding. * ABGs ordered and pending * Chest x-ray shows pulmonary vascular congestion without pulmonary edema with a new mild bibasilar opacity which could represent atelectasis or pneumonia * D-dimer is also being collected * CTA might be beneficial as patient might be having a PE * Continue to trend respiratory status (3) Hyponatremia: Code(s): E87.1 - Hypo-osmolality and hyponatremia Status: Acute Assessment and Plan: * Sodium was 131, today 125 * Could be related to surgical procedure * Check urine studies * LR changed to NS * Trend labs Q4hr to ensure patient is not correcting too fast * FENa score is 2.2 * Looks like she is excreting sodium from the urinary system * Nephrology consulted thank you for your help * Will start sodium tabs for now (4) Ischemic pain of left foot: Code(s): M79.672 - Pain in left foot; I99.8 - Other disorder of circulatory system Status: Chronic Assessment and Plan: * Pain medications on board * Surgery consulted thank you for your recommendations * Scheduled BKA * See above (5) Gangrene of left foot: Code(s): I96 - Gangrene, not elsewhere classified Status: Chronic Assessment and Plan: * Multiple areas of noted gangrene * Antibiotics on board * BKA scheduled 12/02/21 (6) Tobacco abuse: Code(s): Z72.0 - Tobacco use Status: Chronic Assessment and Plan: * Patch ordered * Smoking cessation given (7) Hyperlipidemia: Code(s): E78.5 - Hyperlipidemia, unspecified Status: Acute Assessment and Plan: * Continue home crestor (8) Afib: Code(s): I48.91 - Unspecified atrial fibrillation Status: Acute Assessment and Plan: * Reports tachycardia * Continue home Cardizem * Trend heart rate * EKG cancelled at this time (9) D-dimer, elevated: Code(s): R79.89 - Other specified abnormal findings of blood chemistry Status: Acute Assessment and Plan: * D. Dimer elevated at 1.52 * CTA of the chest ordered * Lovenox on board * Continue to trend respiratory status Time Spent With Patient Time with patient: Greater than 35 minutes Subjective Date/time seen: 12/04/21 1015 Interval history: 12/02/21 Dorene Pathak is a 81 year old female Who has a past medical history of hyperlipidemia, hypertension who was a direct admit from Dr. Elizalde office. Patient has been battling a leg wo
[2021-12-04 11:02] LABS: Creatinine Urine 42.5 mg/dL; Sodium Urine Random 146 meq/L; Urea Random Urine 204 MG/DL
--- NOTE | 2021-12-04 11:50 | PM.PNGS ---
Progress Note: A&P Assessment and Plan (1) Non-healing wound of left lower extremity: Code(s): S81.802A - Unspecified open wound, left lower leg, initial encounter Status: Chronic Assessment and Plan: Will order PT/OT today to start transferring patient. Still not having any post-op pain. Will plan on changing her dressing tomorrow. Elevate left lower extremity on a pillow while at rest. Repeat labs tomorrow. (2) Ischemic pain of left foot: Code(s): M79.672 - Pain in left foot; I99.8 - Other disorder of circulatory system Status: Chronic (3) Gangrene of left foot: Code(s): I96 - Gangrene, not elsewhere classified Status: Chronic (4) Hyponatremia: Code(s): E87.1 - Hypo-osmolality and hyponatremia Status: Acute Assessment and Plan: Sodium still low at 125 today. Spoke with Hospitalist, who is awaiting urine tests - nursing collecting sample this morning. Continue IVF and Hospitalist deciding on starting sodium tabs. Monitor labs. (5) Tobacco abuse: Code(s): Z72.0 - Tobacco use Status: Chronic Additional Plan I have discussed the patient's case and plan of care with Dr. Vasquez. Subjective Subjective Date/Time Seen: 12/04/21 09:50 Post Op day: 2 (Left BKA) Patient reports: no new complaints, tolerating a regular diet, voiding w/o difficulty and afebrile Interval history: Patient seen and examined. No specific complaints today. Denies any pain in her leg or elsewhere. Still on bedrest. No issues overnight per nursing. Nursing trying to obtain a urine sample from the patient to send to lab for urine tests ordered from Hospitalist. 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 Extrem: General: amputation noted (left BKA with post-op dressing in place and dry) and no edema (no right lower ext edema) Psych: Insight: Good insight present (Psych) Judgement: Good judgement present (Psych) Objective Data Vital Signs Vital Signs: Vital Signs - 24 hr 12/03/21 16:00 12/03/21 22:00 12/04/21 01:00 Temperature 97.6 F 98.2 F Pulse Rate 82 96 86 Respiratory Rate 20 34 H Blood Pressure 134/54 L 104/86 Pulse Oximetry 93 94 12/04/21 06:00 Temperature 97.1 F L Pulse Rate 87 Respiratory Rate 30 H Blood Pressure 124/68 Pulse Oximetry 94 Intake/Output Intake/Output: Intake & Output 12/01/21 12/02/21 12/03/21 12/04/21 23:59 23:59 23:59 23:59 Intake Total 991 286 1730 1050 Balance 525 897 4277 1050 Meds/Results Medications: Active Medications Generic Name Dose Route Start Last Admin Trade Name Freq PRN Reason Stop Dose Admin Acetaminophen 650 mg 12/01/21 16:52 Acetaminophen 325 Mg Tablet PO Q4H PRN Mild Pain (1-3) or Fever Hydrocodone Bitart/Acetaminophen 1 tab 12/02/21 15:22 12/02/21 19:07 Hydrocodone/Acetaminophen (*Crx) 7.5-325 Mg Tablet PO 1 tab Q4H PRN Administration Pain Rated 7-10 Al Hydrox/Mg Hydrox/Simethicone 30 ml 12/01/21 16:52 Mag Hydrox/Al Hydrox/Simeth 30 Ml Udc PO QID PRN Dyspepsia Diltiazem HCl 240 mg 12/02/21 09:00 12/04/21 09:53 Diltiazem Hcl Cd 240 Mg Cap.Er.24h PO 240 mg DAILY DANTE Administration Enoxaparin Sodium 30 mg 12/02/21 21:00 12/04/21 09:55 Enoxaparin 30 Mg/0.3 Ml Syringe SUB-Q 30 mg Q12HR DANTE Administration Famotidine 20 mg 12/02/21 21:00 12/04/21 09:53 Famotidine 20 Mg Tablet PO 20 mg Q12HR DANTE Administration Cefazolin Sodium 2 gm in 50 mls @ 100 mls/hr 12/01/21 18:00 12/04/21 09:56 Ancef 2 Gm/D5w 50 Ml
--- NOTE | 2021-12-04 15:22 | PCOTNOTE ---
Per chart recommends that pt start therapy on 12/05/21
[2021-12-04 15:35] LABS: Alanine Aminotransferase 12 U/L (4-35); Albumin Level 2.9 g/dL (3.5-5.1); Alkaline Phosphatase 81 U/L (38-126); Anion Gap 4 mmol/L (8-16); Aspartate Amino Transferase 56 U/L (14-36); Bilirubin,Total 0.4 mg/dL (0.2-1.3); Blood Urea Nitrogen 7 mg/dL (7-17); Calcium 7.5 mg/dL (8.4-10.2); Carbon Dioxide 27 mmol/L (22-30); Chloride 94 mmol/L (98-107); Estimated CRCL calculation 39 ml/min; Estimated Glomerular Filt Rate > 60; Glucose 133 mg/dL (65-110); Potassium 3.2 mmol/L (3.4-5.0); Sodium 125 mmol/L (137-145)
[2021-12-04 15:36] LABS: D Dimer 1.52 ug/mL (<0.48)
[2021-12-04 15:36] LABS: Alveolar/Arterial O2 Gradient 102.5 mmHg; Base Excess ABG 4.7 mEq/l (+/-2.0); Carboxyhemoglobin 0.3 % THb (0-2.0); Fractional Inspired Oxygen 28 %; HCO3 ABG 27.8 mEq/l (22.0-26.0); Methemoglobin ABG 0.4 %THb (0-1.5); Oxygen Content ABG 13.1 %vol (16.0-22.0); Oxygen Saturation ABG 91.6 % (95.0-100.0); Oxyhemoglobin 88.7 % THb (90.0-100.0); PCO2 ABG 35.6 mmHg (35.0-45.0); PO2 ABG 55.1 mmHg (80.0-100.0); PO2 FiO2 Ratio Arterial Blood 1.97 %; Reduced Hemoglobin 10.6 %THb (0-5.0); Total Hemoglobin 10.5 g/dL (12.0-18.0)
[2021-12-04 15:37] LABS: pH ABG 7.511 (7.350-7.450)
[2021-12-04 15:38] LABS: Device NASAL CANNULA; Modified Allen's Test Pass; Site Drawn RIGHT RADIAL
[2021-12-04] MEDS: SODIUM CHLORIDE 500 MG TABLET PO (16:39)
[2021-12-04] MEDS: KETOROLAC 15 MG/ML VIAL (*BKC) IV PUSH (16:40)
--- NOTE | 2021-12-04 17:02 | PC.NURSE ---
I/S encouraged. Pt reminded to use every two hours while awake. Verbalized understanding.
[2021-12-05] MEDS: ceFAZolin 2 GM/D5W 50 ML 2 GM/50 ML BAG IVPB ×3 (01:36→17:56)
[2021-12-05] MEDS: TOBRAMYCIN SULFATE 0.3% OPHTH SOLN 5 ML 1 DROP EACH EYE ×6 (01:36→21:44)
[2021-12-05 05:33] VITALS: BP 120/63; PULSE 72; RESP 16; TEMP 36.6; O2SAT 100
[2021-12-05 06:00] LABS: Basophils Percent Auto 0.3 % (0.2-1.2); Eosinophils Absolute Auto 0.2 K/mm3 (0-0.3); Eosinophils Percent Auto 2.5 % (0-4.4); Hematocrit 29.7 % (37.0-47.0); Hemoglobin 9.5 g/dL (12.0-15.0); Immature Granulocyte Absolute 0.06 K/mm3 (0.00-0.031); Immature Granulocyte Percent A 0.7 % (0-0.5); Lymphocytes Absolute Auto 1.45 K/mm3 (0.9-3.2); Lymphocytes Percent Auto 16.8 % (18.3-44.2); Mean Corpuscular Hemoglobin 28.1 pg (26-34); Mean Corpuscular Volume 87.9 fl (80-100); Mean Platelet Volume 9.7 fl (7.4-10.4); Monocytes Absolute Auto 1.3 K/mm3 (0.1-0.6); Monocytes Percent Auto 14.5 % (2.6-8.5); Neutrophils Absolute Auto 5.6 K/mm3 (1.3-6.7); Neutrophils Percent Auto 65.2 % (45.5-73.1); Platelet Count Result 297 k/mm3 (150-375); Red Blood Count 3.38 M/mm3 (4.2-5.4); White Blood Count 8.6 K/mm3 (4.5-10.0)
[2021-12-05 06:13] LABS: Anion Gap 4 mmol/L (8-16); Blood Urea Nitrogen 8 mg/dL (7-17); Calcium 7.5 mg/dL (8.4-10.2); Carbon Dioxide 26 mmol/L (22-30); Chloride 97 mmol/L (98-107); Estimated CRCL calculation 39 ml/min; Estimated Glomerular Filt Rate > 60; Glucose 109 mg/dL (65-110); Potassium 3.4 mmol/L (3.4-5.0); Sodium 127 mmol/L (137-145)
[2021-12-05 08:00] VITALS: PULSE 72; RESP 16; O2SAT 100
[2021-12-05] MEDS: ROSUVASTATIN 10 MG TABLET PO (10:25)
[2021-12-05] MEDS: ENOXAPARIN 30 MG/0.3 ML SYRINGE SUB-Q ×2 (10:25→21:44)
[2021-12-05] MEDS: FAMOTIDINE 20 MG TABLET PO ×2 (10:25→21:44)
[2021-12-05] MEDS: SODIUM CHLORIDE 500 MG TABLET PO ×2 (10:26→17:56)
--- NOTE | 2021-12-05 10:43 | P.PNIM_ITS ---
Progress Note: A&P Assessment and Plan (1) Non-healing wound of left lower extremity: Code(s): S81.802A - Unspecified open wound, left lower leg, initial encounter Status: Chronic Assessment and Plan: * POD 3 * Reported 1 month of non-healing foot wound * General surgery consult appreciate his recommendation. Surgical procedure performed on 12/02/2021. A below the knee amputation was performed * IV pain management with morphine and oral pain management with tramadol * Cefazolin 2gm Q8Hr * Post op care per general surgery * Low fiber diet * Case management consult for further management of the patient's placement needs to a skilled facility * PT/OT tomorrow (2) Acute respiratory failure: Code(s): J96.00 - Acute respiratory failure, unspecified whether with hypoxia or hypercapnia Status: Acute Assessment and Plan: * Patient continues to wear supplemental oxygen at 2 L per nasal cannula, SpO2 reportedly 100%. Will perform a home oxygen evaluation. Wean oxygen off as tolerated * Repeat ABGs * Events On 12/04/21 Patient is unable to complete full sentences and is tripoding.--Patient is noted to be tachypneic with an O2 saturation of 84. ABGs reviewed from 12/04/2021. Patient did have a pH of 7.511, pO2 55.1 and pCO2 35.6, bicarb 27.8 * 12/04/2021 Chest x-ray shows pulmonary vascular congestion without pulmonary edema with a new mild bibasilar opacity which could represent atelectasis or pneumonia * D-dimer mildly elevated at 1.52, possibly due to his recent surgery and illness/gangrenous foot * CTA negative for pulmonary embolism, did result in findings of bilateral atelectasis versus pneumonia. Given the patient's clinical picture today and no leukocytosis with recent surgery, suggestive of bilateral atelectasis. Will encourage patient to do incentive spirometry * Continue to trend respiratory status (3) Hyponatremia: Code(s): E87.1 - Hypo-osmolality and hyponatremia Status: Acute Assessment and Plan: * Monitor serum electrolytes. Sodium upon admission was 131, down trended after surgical intervention and IV fluids. Patient's sodium decreased to 123 on 12/03/2021. Slowly up trending as patient's oral intake has improved. IV fluids discontinued and a sodium bicarb tablet was administered. * Nephrology consulted for hyponatremia, appreciate assistance and recommendations * Urine studies performed * FENa score is 2.2 (4) Ischemic pain of left foot: Code(s): M79.672 - Pain in left foot; I99.8 - Other disorder of circulatory system Status: Chronic Assessment and Plan: * Pain medications on board * Surgery consulted thank you for your recommendations * See above (5) Gangrene of left foot: Code(s): I96 - Gangrene, not elsewhere classified Status: Chronic Assessment and Plan: * Multiple areas of noted gangrene * Antibiotics on board * BKA scheduled 12/02/21 * 2/2 above (6) Tobacco abuse: Code(s): Z72.0 - Tobacco use Status: Chronic Assessment and Plan: * Smoking cessation counseling given for 3 minutes, add nicotine patch daily (7) Hyperlipidemia: Code(s): E78.5 - Hyperlipidemia, unspecified Status: Acute Assessment and Plan: * Continue home crestor (8) Afib: Code(s): I48.91 - Unspecified atrial fibrillation Status: Acute Assessment
--- NOTE | 2021-12-05 10:43 | PM.IMPN ---
Progress Note: A&P Assessment and Plan (1) Non-healing wound of left lower extremity: Code(s): S81.802A - Unspecified open wound, left lower leg, initial encounter Status: Chronic Assessment and Plan: POD 3 Reported 1 month of non-healing foot wound General surgery consult appreciate his recommendation. Surgical procedure performed on 12/02/2021. A below the knee amputation was performed IV pain management with morphine and oral pain management with tramadol Cefazolin 2gm Q8Hr Post op care per general surgery Low fiber diet Case management consult for further management of the patient's placement needs to a skilled facility PT/OT tomorrow (2) Acute respiratory failure: Code(s): J96.00 - Acute respiratory failure, unspecified whether with hypoxia or hypercapnia Status: Acute Assessment and Plan: Patient continues to wear supplemental oxygen at 2 L per nasal cannula, SpO2 reportedly 100%. Will perform a home oxygen evaluation. Wean oxygen off as tolerated Repeat ABGs Events On 12/04/21 Patient is unable to complete full sentences and is tripoding.--Patient is noted to be tachypneic with an O2 saturation of 84. ABGs reviewed from 12/04/2021. Patient did have a pH of 7.511, pO2 55.1 and pCO2 35.6, bicarb 27.8 12/04/2021 Chest x-ray shows pulmonary vascular congestion without pulmonary edema with a new mild bibasilar opacity which could represent atelectasis or pneumonia D-dimer mildly elevated at 1.52, possibly due to his recent surgery and illness/gangrenous foot CTA negative for pulmonary embolism, did result in findings of bilateral atelectasis versus pneumonia. Given the patient's clinical picture today and no leukocytosis with recent surgery, suggestive of bilateral atelectasis. Will encourage patient to do incentive spirometry Continue to trend respiratory status (3) Hyponatremia: Code(s): E87.1 - Hypo-osmolality and hyponatremia Status: Acute Assessment and Plan: Monitor serum electrolytes. Sodium upon admission was 131, down trended after surgical intervention and IV fluids. Patient's sodium decreased to 123 on 12/03/2021. Slowly up trending as patient's oral intake has improved. IV fluids discontinued and a sodium bicarb tablet was administered. Nephrology consulted for hyponatremia, appreciate assistance and recommendations Urine studies performed FENa score is 2.2 (4) Ischemic pain of left foot: Code(s): M79.672 - Pain in left foot; I99.8 - Other disorder of circulatory system Status: Chronic Assessment and Plan: Pain medications on board Surgery consulted thank you for your recommendations See above (5) Gangrene of left foot: Code(s): I96 - Gangrene, not elsewhere classified Status: Chronic Assessment and Plan: Multiple areas of noted gangrene Antibiotics on board BKA scheduled 12/02/21 2/ above (6) Tobacco abuse: Code(s): Z72.0 - Tobacco use Status: Chronic Assessment and Plan: Smoking cessation counseling given for 3 minutes, add nicotine patch daily (7) Hyperlipidemia: Code(s): E78.5 - Hyperlipidemia, unspecified Status: Acute Assessment and Plan: Continue home crestor (8) Afib: Code(s): I48.91 - Unspecified atrial fibrillation Status: Acute Assessment and Plan: Reports tachycardia Continue home Cardizem Trend heart rate (9) D-dimer, elevated: Code(s): R79.89 - Other specified abnormal findings of blood chemistry Status: Acute Assessment and Plan: D. Dimer elevated at 1.52 possibly due to recent illness and limb ischemia, CTA was performed to rule out a pulmonary embolism. No pulmonary embolism found however it did report bilateral atelectasis versus pneumonia. Due to the patient's lack of a leukocytosis, suggestive of atelectasis. We
[2021-12-05 12:28] VITALS: O2SAT 94
--- NOTE | 2021-12-05 13:15 | PM.CNNEP ---
Assessment and Plan Assessment and plan (1) Hyponatremia: Code(s): E87.1 - Hypo-osmolality and hyponatremia Status: Acute Assessment and Plan: possibly acute on chronic -- sodium 131mmol/L on admission possibly from underlying smoking history/lung disease exacerbated by recent surgery (?) -- from anesthesia versus pain versus pain medications? somewhat better at this time urine electrolytes non-prerenal check TSH, cortisol, SPEP and UPEP follow trend of repeat sodium levels (2) Non-healing wound of left lower extremity: Code(s): S81.802A - Unspecified open wound, left lower leg, initial encounter Status: Chronic Assessment and Plan: wound present for almost a month complicated by ischemic pain as well as gangrene s/p left BKA on 12/02/21 by Surgery local wound care, and pain control (3) Acute respiratory failure: Code(s): J96.00 - Acute respiratory failure, unspecified whether with hypoxia or hypercapnia Status: Acute Assessment and Plan: events noted yesterday with noted imaging presumed to be post-op atelectasis icentive spiromery supplemental oxygen PRN (4) Hypertension: Code(s): I10 - Essential (primary) hypertension Status: Acute Assessment and Plan: well controlled follow trend of hemodynamics (5) Afib: Code(s): I48.91 - Unspecified atrial fibrillation Status: Acute Assessment and Plan: rate control strategy anticoagulation(?) Will continue to follow. History of Present Illness Reason for Consult Consult date: 12/05/21 Reason for consult: hyponatremia Chief Complaint Chief complaint: Gangrene to Left Foot History of Present Illness Narrative: The patient is a very pleasant 81-year-old female with a past medical history as outlined below who was directly admitted to [facility] for further intervention regarding a nonhealing left lower extremity wound. The wound has been present for at least a month if not longer and despite aggressive conservative therapy to optimize wound healing, the wound itself seems to be getting progressively worse. Further complicating matters is that the patient appears to be having symptoms of ongoing ischemia and there appears to be development of gangrene. As it would seem that conservative therapy has failed to improve this wound, she was directly admitted to the hospital for surgical intervention, specifically a left below-knee amputation. The patient successfully underwent the left [id number] on 12/02/2021 without any acute issues or problems. Unfortunately, postoperatively, she was noted to have a acute drop in her sodium level which has progressed for last 24-48 hours. In spite of this laboratory abnormality, she does not appear to be in acute distress or having any type of neurological sequelae from it. Renal consultation was requested due to the a for mentioned hyponatremia. Unfortunately, I do not have any previous labs to compare to in terms of what her previous sodium level was. However, on admission, her sodium level is 131 and a precipitously dropped to 124 and her most recent values up to 125 millimoles per L. her major risk factor for hyponatremia is that of her ongoing smoking and lung disease. She does not appear to be on any type of medications that would cause it. However, 1 could argue that the postoperative pain following this recent surgery may have also precipitated her drop in her sodium level. Furthermore, her fluctuating oral intake following surgery may also be a factor with regard to her up and down sodium level. Currently, at the time my evaluation, she appears to be in no acute distress. Review of Systems Review of Systems: As per HPI. [facility] Past Medical History Medical History High cholesterol Hypertension Surgical History Surgical Histor
[2021-12-05 13:46] LABS: Alveolar/Arterial O2 Gradient 126.7 mmHg; Base Excess ABG 2.2 mEq/l (+/-2.0); Device NASAL CANNULA; Fractional Inspired Oxygen 32 %; HCO3 ABG 25.9 mEq/l (22.0-26.0); Modified Allen's Test Pass; Oxygen Content ABG 13.4 %vol (16.0-22.0); Oxygen Saturation ABG 91.7 % (95.0-100.0); Oxyhemoglobin 90.3 % THb (90.0-100.0); PCO2 ABG 37.1 mmHg (35.0-45.0); PO2 ABG 58.1 mmHg (80.0-100.0); PO2 FiO2 Ratio Arterial Blood 1.82 %; Site Drawn RIGHT RADIAL; Total Hemoglobin 10.5 g/dL (12.0-18.0); pH ABG 7.462 (7.350-7.450)
[2021-12-05 14:00] VITALS: BP 118/56; PULSE 73; RESP 18; TEMP 36.3; O2SAT 100
--- NOTE | 2021-12-05 16:30 | PM.PNGS ---
Progress Note: A&P Assessment and Plan (1) Gangrene of left foot: Code(s): I96 - Gangrene, not elsewhere classified Status: Chronic Assessment and Plan: stump looks good. continue IV Ancef. (2) Hyponatremia: Code(s): E87.1 - Hypo-osmolality and hyponatremia Status: Acute Assessment and Plan: IV fluids have been stopped. Consider fluid restriction diet. (3) Status post below-knee amputation of left lower extremity: Code(s): Z89.512 - Acquired absence of left leg below knee Status: Acute Assessment and Plan: Dressing changed today. Amputation stump looks very good. Re-dressed. Continue PT OT. Continue inpatient care. Subjective Subjective Date/Time Seen: 12/05/21 16:30 Post Op day: 3 Patient reports: no new complaints, pain is less (Really not having any pain.), tolerating a regular diet, no flatus and no bowel movement Exam Const: General: comfortable, no acute distress, alert and awake Nutritional Appearance: thin Orientation/consciousness: patient oriented x3 Extrem: Left lower extremity: lower leg ( Dressing removed, amputation stump looks good. No sign ischemia or infec) Details: other ( wound redressed with 4x4s, Kerlix roll, 6 in Mikhail wrap.) Objective Data Vital Signs Vital Signs: Vital Signs - 24 hr 12/04/21 21:04 12/04/21 23:10 12/05/21 05:33 Temperature 36.9 C 36.6 C Pulse Rate 75 72 Respiratory Rate 14 16 Blood Pressure 114/76 120/63 Pulse Oximetry 100 95 100 12/05/21 08:00 12/05/21 12:28 12/05/21 14:00 Temperature 36.3 C L Pulse Rate 72 73 Respiratory Rate 16 18 Blood Pressure 118/56 L Pulse Oximetry 100 94 100 Intake/Output Intake/Output: Intake & Output 12/02/21 12/03/21 12/04/21 12/05/21 23:59 23:59 23:59 23:59 Intake Total 425 3000 2522 290 Output Total 200 Balance 425 3000 2522 90 Meds/Results Medications: Active Medications Generic Name Dose Route Start Last Admin Trade Name Freq PRN Reason Stop Dose Admin Acetaminophen 650 mg 12/01/21 16:52 Acetaminophen 325 Mg Tablet PO Q4H PRN Mild Pain (1-3) or Fever Hydrocodone Bitart/Acetaminophen 1 tab 12/02/21 15:22 12/02/21 19:07 Hydrocodone/Acetaminophen (*Crx) 7.5-325 Mg Tablet PO 1 tab Q4H PRN Administration Pain Rated 7-10 Al Hydrox/Mg Hydrox/Simethicone 30 ml 12/01/21 16:52 Mag Hydrox/Al Hydrox/Simeth 30 Ml Udc PO QID PRN Dyspepsia Diltiazem HCl 240 mg 12/02/21 09:00 12/05/21 10:25 Diltiazem Hcl Cd 240 Mg Cap.Er.24h PO 240 mg DAILY DANTE Administration Enoxaparin Sodium 30 mg 12/02/21 21:00 12/05/21 10:25 Enoxaparin 30 Mg/0.3 Ml Syringe SUB-Q 30 mg Q12HR DANTE Administration Famotidine 20 mg 12/02/21 21:00 12/05/21 10:25 Famotidine 20 Mg Tablet PO 20 mg Q12HR DANTE Administration Cefazolin Sodium 2 gm in 50 mls @ 100 mls/hr 12/01/21 18:00 12/05/21 10:27 Ancef 2 Gm/D5w 50 Ml IVPB 100 mls/hr Q8H DANTE Administration Morphine Sulfate 2 mg 12/02/21 15:22 Morphine Sulfate (*Crx) 2 Mg/Ml Inj IV PUSH Q2H PRN Pain Rated 4-6 Morphine Sulfate 4 mg 12/02/21 15:22 Morphine Sulfate (*Crx) 4 Mg/Ml Inj IV PUSH Q2H PRN Pain Rated 7-10 Naloxone HCl 0.1 mg 12/02/21 15:22 Naloxone Hcl 0.4 Mg/Ml Vial IV PUSH Q2M PRN Opiate Reversal Ondansetron HCl 4 mg 12/02/21 15:22 Ondansetron Inj 4 Mg/2 Ml Vial IV PUSH Q4H PRN Nausea And Vomiting Rosuvastatin Calcium 10 mg 12/02/21 09:00 12/05/21 10:25 Rosuvastatin 10 Mg Tablet PO 10 mg DAILY DANTE Administration Sodium Chloride 500 mg 12/04/21 17:00 12/05/21 10:26 Sodium Chloride 500 Mg Tablet PO 500 mg BID DANTE Administration Tobramycin Sulfate 1 drop 12/01/21 17:15 12/05/21 13:25 Tobramycin Sulfate 0.3% Ophth Soln 5 Ml EACH EYE 1 drop Q4HR DANTE Administration Tramadol HCl 50 mg 12/01/21 16:57 12/02/21 09:13 Tramadol Hcl (*Crx)
[2021-12-05 20:00] VITALS: O2SAT 94
[2021-12-05 22:00] VITALS: BP 113/63; PULSE 79; RESP 16; TEMP 36.4; O2SAT 94
[2021-12-06] MEDS: ceFAZolin 2 GM/D5W 50 ML 2 GM/50 ML BAG IVPB ×3 (01:10→17:47)
[2021-12-06] MEDS: TOBRAMYCIN SULFATE 0.3% OPHTH SOLN 5 ML 1 DROP EACH EYE ×6 (01:11→20:00)
[2021-12-06 05:59] LABS: Hematocrit 29.6 % (37.0-47.0); Hemoglobin 9.5 g/dL (12.0-15.0); Mean Corpuscular HGB Conc 32.1 g/dl (32-36); Mean Corpuscular Hemoglobin 28.4 pg (26-34); Mean Corpuscular Volume 88.4 fl (80-100); Mean Platelet Volume 9.4 fl (7.4-10.4); Platelet Count Result 312 k/mm3 (150-375); Red Blood Count 3.35 M/mm3 (4.2-5.4); Red Cell Distribution Width 13.1 % (11.5-14.5); White Blood Count 9.4 K/mm3 (4.5-10.0)
[2021-12-06 06:00] VITALS: BP 141/68; PULSE 74; RESP 22; TEMP 36.1; O2SAT 95
[2021-12-06 06:16] LABS: Anion Gap 3 mmol/L (8-16); Blood Urea Nitrogen 7 mg/dL (7-17); Calcium 7.6 mg/dL (8.4-10.2); Carbon Dioxide 30 mmol/L (22-30); Chloride 97 mmol/L (98-107); Estimated CRCL calculation 44 ml/min; Estimated Glomerular Filt Rate > 60; Glucose 103 mg/dL (65-110); Potassium 3.3 mmol/L (3.4-5.0); Sodium 130 mmol/L (137-145)
[2021-12-06 08:00] VITALS: PULSE 74; RESP 22; O2SAT 95
[2021-12-06] MEDS: SODIUM CHLORIDE 500 MG TABLET PO ×2 (09:02→17:44)
[2021-12-06] MEDS: ROSUVASTATIN 10 MG TABLET PO (09:02)
[2021-12-06] MEDS: FAMOTIDINE 20 MG TABLET PO ×2 (09:02→19:56)
[2021-12-06] MEDS: ENOXAPARIN 30 MG/0.3 ML SYRINGE SUB-Q ×2 (09:02→19:55)
[2021-12-06] MEDS: POTASSIUM CHLORIDE 20 MEQ TABLET 40 MEQ PO (09:04)
--- NOTE | 2021-12-06 10:53 | P.PNIM_ITS ---
Progress Note: A&P Assessment and Plan (1) Non-healing wound of left lower extremity: Code(s): S81.802A - Unspecified open wound, left lower leg, initial encounter Status: Chronic Assessment and Plan: * POD 3 * Reported 1 month of non-healing foot wound * General surgery consult appreciate his recommendation. Surgical procedure performed on 12/02/2021. A below the knee amputation was performed * IV pain management with morphine and oral pain management with tramadol * Cefazolin 2gm Q8Hr * Post op care per general surgery * Low fiber diet * Case management consult for further management of the patient's placement needs to a skilled facility * PT/OT continues (2) Acute respiratory failure: Code(s): J96.00 - Acute respiratory failure, unspecified whether with hypoxia or hypercapnia Status: Acute Assessment and Plan: * home oxygen evaluation. Wean oxygen off as tolerated * Repeat ABGs showed improvement on 12/05/2021, patient is currently off oxygen, 95% on room air * Events On 12/04/21 Patient is unable to complete full sentences and is tripoding.--Patient is noted to be tachypneic with an O2 saturation of 84. ABGs reviewed from 12/04/2021. Patient did have a pH of 7.511, pO2 55.1 and pCO2 35.6, bicarb 27.8 * 12/04/2021 Chest x-ray shows pulmonary vascular congestion without pulmonary edema with a new mild bibasilar opacity which could represent atelectasis or pneumonia * D-dimer mildly elevated at 1.52, possibly due to his recent surgery and illness/gangrenous foot * CTA negative for pulmonary embolism, did result in findings of bilateral atelectasis versus pneumonia. Given the patient's clinical picture today and no leukocytosis with recent surgery, suggestive of bilateral atelectasis. Will encourage patient to do incentive spirometry * Continue to trend respiratory status (3) Hyponatremia: Code(s): E87.1 - Hypo-osmolality and hyponatremia Status: Acute Assessment and Plan: * Monitor serum electrolytes. Sodium upon admission was 131, down trended after surgical intervention and IV fluids. Patient's sodium decreased to 123 on 12/03/2021. Slowly up trending as patient's oral intake has improved. IV fluids discontinued and a sodium bicarb tablet was administered. * Oral fluid intake within the last 24 hours is 980 mL. * Nephrology consulted for hyponatremia, appreciate assistance and recommendations * Urine studies performed * FENa score is 2.2 (4) Ischemic pain of left foot: Code(s): M79.672 - Pain in left foot; I99.8 - Other disorder of circulatory system Status: Chronic Assessment and Plan: * Pain medications on board * Surgery consulted thank you for your recommendations * See above (5) Gangrene of left foot: Code(s): I96 - Gangrene, not elsewhere classified Status: Chronic Assessment and Plan: * Multiple areas of noted gangrene * Antibiotics on board * BKA scheduled 12/02/21 * 2/2 above (6) Tobacco abuse: Code(s): Z72.0 - Tobacco use Status: Chronic Assessment and Plan: * Smoking cessation counseling given for 3 minutes, add nicotine patch daily (7) Hyperlipidemia: Code(s): E78.5 - Hyperlipidemia, unspecified Status: Acute Assessment and Plan: * Continue home crestor (8) Afib: Code(s): I48.91 - Unspecified atrial fibrillation Status:
--- NOTE | 2021-12-06 10:53 | PM.IMPN ---
Progress Note: A&P Assessment and Plan (1) Non-healing wound of left lower extremity: Code(s): S81.802A - Unspecified open wound, left lower leg, initial encounter Status: Chronic Assessment and Plan: POD 3 Reported 1 month of non-healing foot wound General surgery consult appreciate his recommendation. Surgical procedure performed on 12/02/2021. A below the knee amputation was performed IV pain management with morphine and oral pain management with tramadol Cefazolin 2gm Q8Hr Post op care per general surgery Low fiber diet Case management consult for further management of the patient's placement needs to a skilled facility PT/OT continues (2) Acute respiratory failure: Code(s): J96.00 - Acute respiratory failure, unspecified whether with hypoxia or hypercapnia Status: Acute Assessment and Plan: home oxygen evaluation. Wean oxygen off as tolerated Repeat ABGs showed improvement on 12/05/2021, patient is currently off oxygen, 95% on room air Events On 12/04/21 Patient is unable to complete full sentences and is tripoding.--Patient is noted to be tachypneic with an O2 saturation of 84. ABGs reviewed from 12/04/2021. Patient did have a pH of 7.511, pO2 55.1 and pCO2 35.6, bicarb 27.8 12/04/2021 Chest x-ray shows pulmonary vascular congestion without pulmonary edema with a new mild bibasilar opacity which could represent atelectasis or pneumonia D-dimer mildly elevated at 1.52, possibly due to his recent surgery and illness/gangrenous foot CTA negative for pulmonary embolism, did result in findings of bilateral atelectasis versus pneumonia. Given the patient's clinical picture today and no leukocytosis with recent surgery, suggestive of bilateral atelectasis. Will encourage patient to do incentive spirometry Continue to trend respiratory status (3) Hyponatremia: Code(s): E87.1 - Hypo-osmolality and hyponatremia Status: Acute Assessment and Plan: Monitor serum electrolytes. Sodium upon admission was 131, down trended after surgical intervention and IV fluids. Patient's sodium decreased to 123 on 12/03/2021. Slowly up trending as patient's oral intake has improved. IV fluids discontinued and a sodium bicarb tablet was administered. Oral fluid intake within the last 24 hours is 980 mL. Nephrology consulted for hyponatremia, appreciate assistance and recommendations Urine studies performed FENa score is 2.2 (4) Ischemic pain of left foot: Code(s): M79.672 - Pain in left foot; I99.8 - Other disorder of circulatory system Status: Chronic Assessment and Plan: Pain medications on board Surgery consulted thank you for your recommendations See above (5) Gangrene of left foot: Code(s): I96 - Gangrene, not elsewhere classified Status: Chronic Assessment and Plan: Multiple areas of noted gangrene Antibiotics on board BKA scheduled 12/02/21 2/2 above (6) Tobacco abuse: Code(s): Z72.0 - Tobacco use Status: Chronic Assessment and Plan: Smoking cessation counseling given for 3 minutes, add nicotine patch daily (7) Hyperlipidemia: Code(s): E78.5 - Hyperlipidemia, unspecified Status: Acute Assessment and Plan: Continue home crestor (8) Afib: Code(s): I48.91 - Unspecified atrial fibrillation Status: Acute Assessment and Plan: Reports tachycardia Continue home Cardizem Trend heart rate (9) D-dimer, elevated: Code(s): R79.89 - Other specified abnormal findings of blood chemistry Status: Acute Assessment and Plan: D. Dimer elevated at 1.52 possibly due to recent illness and limb ischemia, CTA was performed to rule out a pulmonary embolism. No pulmonary embolism found however it did report bilateral atelectasis versus pneumonia. Due to the patient's lack of a leukocytosis,
[2021-12-06 11:00] VITALS: O2SAT 92
--- NOTE | 2021-12-06 11:39 | PM.PNGS ---
Progress Note: A&P Assessment and Plan (1) Status post below-knee amputation of left lower extremity: Code(s): Z89.512 - Acquired absence of left leg below knee Status: Acute Assessment and Plan: doing well, cont routine postop care, plan for placement early next week Subjective Subjective Date/Time Seen: 12/06/21 11:39 feels ok, no complaints Review of Systems Review of Systems: All systems reviewed & are unremarkable except as noted in HPI and below Exam Const: General: cooperative, comfortable and no acute distress Resp: Effort & Inspection: normal respiratory effort Auscultation: clear to auscultation bilaterally Cardio: Rate: regular rate Rhythm: regular rhythm Skin: Other: L BKA - drsg C/D/I Objective Data Vital Signs Vital Signs: Vital Signs - 24 hr 12/05/21 12:28 12/05/21 14:00 12/05/21 20:00 Temperature 36.3 C L Pulse Rate 73 Respiratory Rate 18 Blood Pressure 118/56 L Pulse Oximetry 94 100 94 12/05/21 22:00 12/06/21 06:00 12/06/21 08:00 Temperature 36.4 C L 36.1 C L Pulse Rate 79 74 74 Respiratory Rate 16 22 H 22 H Blood Pressure 113/63 141/68 H Pulse Oximetry 94 95 95 12/06/21 11:00 Temperature Pulse Rate Respiratory Rate Blood Pressure Pulse Oximetry 92 Intake/Output Intake/Output: Intake & Output 12/03/21 12/04/21 12/05/21 12/06/21 23:59 23:59 23:59 23:59 Intake Total 3000 2522 730 420 Output Total 200 200 Balance 3000 2522 530 220 Meds/Results Medications: Active Medications Generic Name Dose Route Start Last Admin Trade Name Freq PRN Reason Stop Dose Admin Acetaminophen 650 mg 12/01/21 16:52 Acetaminophen 325 Mg Tablet PO Q4H PRN Mild Pain (1-3) or Fever Hydrocodone Bitart/Acetaminophen 1 tab 12/02/21 15:22 12/02/21 19:07 Hydrocodone/Acetaminophen (*Crx) 7.5-325 Mg Tablet PO 1 tab Q4H PRN Administration Pain Rated 7-10 Al Hydrox/Mg Hydrox/Simethicone 30 ml 12/01/21 16:52 Mag Hydrox/Al Hydrox/Simeth 30 Ml Udc PO QID PRN Dyspepsia Diltiazem HCl 240 mg 12/02/21 09:00 12/06/21 09:03 Diltiazem Hcl Cd 240 Mg Cap.Er.24h PO 240 mg DAILY DANTE Administration Enoxaparin Sodium 30 mg 12/02/21 21:00 12/06/21 09:02 Enoxaparin 30 Mg/0.3 Ml Syringe SUB-Q 30 mg Q12HR DANTE Administration Famotidine 20 mg 12/02/21 21:00 12/06/21 09:02 Famotidine 20 Mg Tablet PO 20 mg Q12HR DANTE Administration Cefazolin Sodium 2 gm in 50 mls @ 100 mls/hr 12/01/21 18:00 12/06/21 09:02 Ancef 2 Gm/D5w 50 Ml IVPB 100 mls/hr Q8H DANTE Administration Morphine Sulfate 2 mg 12/02/21 15:22 Morphine Sulfate (*Crx) 2 Mg/Ml Inj IV PUSH Q2H PRN Pain Rated 4-6 Morphine Sulfate 4 mg 12/02/21 15:22 Morphine Sulfate (*Crx) 4 Mg/Ml Inj IV PUSH Q2H PRN Pain Rated 7-10 Naloxone HCl 0.1 mg 12/02/21 15:22 Naloxone Hcl 0.4 Mg/Ml Vial IV PUSH Q2M PRN Opiate Reversal Ondansetron HCl 4 mg 12/02/21 15:22 Ondansetron Inj 4 Mg/2 Ml Vial IV PUSH Q4H PRN Nausea And Vomiting Rosuvastatin Calcium 10 mg 12/02/21 09:00 12/06/21 09:02 Rosuvastatin 10 Mg Tablet PO 10 mg DAILY DANTE Administration Sodium Chloride 500 mg 12/04/21 17:00 12/06/21 09:02 Sodium Chloride 500 Mg Tablet PO 500 mg BID DANTE Administration Tobramycin Sulfate 1 drop 12/01/21 17:15 12/06/21 09:03 Tobramycin Sulfate 0.3% Ophth Soln 5 Ml EACH EYE 1 drop Q4HR DANTE Administration Tramadol HCl 50 mg 12/01/21 16:57 12/02/21 09:13 Tramadol Hcl (*Crx) 50 Mg Tablet PO 50 mg Q6H PRN Administration Pain Rated 4-6 Radiology Results: ITS Impressions Chest X-Ray 12/04/21 14:15 IMPRESSION: 1. New mild bibasilar opacities which could represent atelectasis or pneumonia. 2. Cardiomegaly with pulmonary vascular congestion but without uma pulmonary edema. Chest CTA 12/04/21 16:32 IMPRESSION: No evidence of pulmonary
[2021-12-06] MEDS: HYDROcodone/acetaminophen (*CRX) 7.5-325 MG TABLET 1 TAB PO ×2 (12:13→19:56)
[2021-12-06] MEDS: MORPHINE SULFATE (*CRX) 2 MG/ML INJ IV PUSH (12:41)
--- NOTE | 2021-12-06 13:07 | PM.PNNEP ---
Progress Note: A&P Assessment and Plan (1) Hyponatremia: Code(s): E87.1 - Hypo-osmolality and hyponatremia Status: Acute Assessment and Plan: possibly acute on chronic -- sodium 131mmol/L on admission possibly from underlying smoking history/lung disease exacerbated by recent surgery (?) -- from anesthesia versus pain versus pain medications? 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 by Surgery local wound care, and pain control (3) Acute respiratory failure: Code(s): J96.00 - Acute respiratory failure, unspecified whether with hypoxia or hypercapnia Status: Acute Assessment and Plan: events noted on 12/04/21 with noted imaging presumed to be post-op atelectasis incentive spiromery supplemental oxygen PRN (4) Hypertension: Code(s): I10 - Essential (primary) hypertension Status: Acute Assessment and Plan: well controlled follow trend of hemodynamics (5) Afib: Code(s): I48.91 - Unspecified atrial fibrillation Status: Acute Assessment and Plan: rate control strategy anticoagulation(?) Will continue to follow. Subjective Date/time seen: 12/06/21 13:07 Overall, she seems to be doing quite well at this time; sodium level appears to be improving without any specific intervention done; no apparent distress voiced on my visit; no new issues or problems to report; no events overnight or earlier this AM. Exam Narrative: General: WD/WN elderly AA female in NAD Heart: normal S1 and S2; no rub Lungs: clear to auscultation Abdomen: soft, nontender, nondistended, positive bowel sounds Extremities: no cyanosis or clubbing; no edema; s/p left BKA Skin: warm and dry Objective Data Vital Signs Vital Signs: Vital Signs Temp Pulse Resp BP Pulse Ox 12/06/21 11:00 92 12/06/21 08:00 74 22 H 95 12/06/21 06:00 36.1 C L 74 22 H 141/68 H 95 04/22 22:00 36.4 C L 79 16 113/63 94 12/05/21 20:00 94 Intake/Output Intake/Output: Intake & Output 12/03/21 12/04/21 12/05/21 12/06/21 23:59 23:59 23:59 23:59 Intake Total 3000 2522 730 420 Output Total 200 200 Balance 3000 2522 530 220 Meds/Results Medications: Active Medications Generic Name Dose Route Start Last Admin Trade Name Freq PRN Reason Stop Dose Admin Acetaminophen 650 mg 12/01/21 16:52 Acetaminophen 325 Mg Tablet PO Q4H PRN Mild Pain (1-3) or Fever Hydrocodone Bitart/Acetaminophen 1 tab 12/02/21 15:22 12/06/21 12:13 Hydrocodone/Acetaminophen (*Crx) 7.5-325 Mg Tablet PO 1 tab Q4H PRN Administration Pain Rated 7-10 Al Hydrox/Mg Hydrox/Simethicone 30 ml 12/01/21 16:52 Mag Hydrox/Al Hydrox/Simeth 30 Ml Udc PO QID PRN Dyspepsia Diltiazem HCl 240 mg 12/02/21 09:00 12/06/21 09:03 Diltiazem Hcl Cd 240 Mg Cap.Er.24h PO 240 mg DAILY DANTE Administration Enoxaparin Sodium 30 mg 12/02/21 21:00 12/06/21 09:02 Enoxaparin 30 Mg/0.3 Ml Syringe SUB-Q 30 mg Q12HR DANTE Administration Famotidine 20 mg 12/02/21 21:00 12/06/21 09:02 Famotidine 20 Mg Tablet PO 20 mg Q12HR DANTE Administration Cefazolin Sodium 2 gm in 50 mls @ 100 mls/hr 12/01/21 18:00 12/06/21 09:02 Ancef 2 Gm/D5w 50 Ml IVPB 100 mls/hr Q8H DANTE Administration Morphine Sulfate 2 mg 12/02/21 15:22 12/06/21 12:41 Morphine Sulfate (*Crx) 2 Mg/Ml Inj IV PUSH 2 mg Q2H PRN Administration Pain Rated 4-6 Morphine Sulfate 4 mg 12/02/21 15:22 Morphine Sulfate (*Crx) 4 Mg/Ml Inj IV PUSH Q2H PRN
--- NOTE | 2021-12-06 13:07 | P.PNNP_ITS ---
Progress Note: A&P Assessment and Plan (1) Hyponatremia: Code(s): E87.1 - Hypo-osmolality and hyponatremia Status: Acute Assessment and Plan: * possibly acute on chronic -- sodium 131mmol/L on admission * possibly from underlying smoking history/lung disease * exacerbated by recent surgery (?) -- from anesthesia versus pain versus pain medications? 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 by Surgery * local wound care, and pain control (3) Acute respiratory failure: Code(s): J96.00 - Acute respiratory failure, unspecified whether with hypoxia or hypercapnia Status: Acute Assessment and Plan: * events noted on 12/04/21 with noted imaging * presumed to be post-op atelectasis * incentive spiromery * supplemental oxygen PRN (4) Hypertension: Code(s): I10 - Essential (primary) hypertension Status: Acute Assessment and Plan: * well controlled * follow trend of hemodynamics (5) Afib: Code(s): I48.91 - Unspecified atrial fibrillation Status: Acute Assessment and Plan: * rate control strategy * anticoagulation(?) Will continue to follow. Subjective Date/time seen: 12/06/21 13:07 Overall, she seems to be doing quite well at this time; sodium level appears to be improving without any specific intervention done; no apparent distress voiced on my visit; no new issues or problems to report; no events overnight or earlier this AM. Exam Narrative: General: WD/WN elderly AA female in NAD Heart: normal S1 and S2; no rub Lungs: clear to auscultation Abdomen: soft, nontender, nondistended, positive bowel sounds Extremities: no cyanosis or clubbing; no edema; s/p left BKA Skin: warm and dry Objective Data Vital Signs Vital Signs: Vital Signs Temp Pulse Resp BP Pulse Ox 12/06/21 11:00 92 12/06/21 08:00 74 22 H 95 12/06/21 06:00 36.1 C L 74 22 H 141/68 H 95 12/05/21 22:00 36.4 C L 79 16 113/63 94 12/05/21 20:00 94 Intake/Output Intake/Output: Intake & Output 12/03/21 12/04/21 12/05/21 12/06/21 23:59 23:59 23:59 23:59 Intake Total 3000 2522 730 420 Output Total 200 200 Balance 3000 2522 530 220 Meds/Results Medications: Active Medications Generic Name Dose Route Start Last Admin Trade Name Freq PRN Reason Stop Dose Admin Acetaminophen 650 mg 12/01/21 16:52 Acetaminophen 325 Mg Tablet PO Q4H PRN Mild Pain (1-3) or Fever Hydrocodone Bitart/Acetaminophen 1 tab 12/02/21 15:22 12/06/21 12:13 Hydrocodone/Acetaminophen (*Crx) 7.5-325 Mg Tablet PO 1 tab Q4H PRN Administration Pain Rated 7-10 Al Hydrox/Mg Hydrox/Simethicone 30 ml 12/01/21 16:52 Mag Hydrox/Al Hydrox/Simeth 30 Ml Udc PO QID PRN Dyspepsia Diltiazem HCl 240 m
[2021-12-06 14:00] VITALS: BP 110/78; PULSE 73; RESP 22; TEMP 36.2; O2SAT 90
[2021-12-06] MEDS: traMADol HCL (*CRX) 50 MG TABLET PO (14:18)
[2021-12-06 22:00] VITALS: BP 120/74; PULSE 71; RESP 24; TEMP 36.4; O2SAT 99
[2021-12-07] MEDS: TOBRAMYCIN SULFATE 0.3% OPHTH SOLN 5 ML 1 DROP EACH EYE ×4 (01:04→20:57)
[2021-12-07 01:32] LABS: Osmolality, Urine 400 mOsm/kg (50-1200)
[2021-12-07] MEDS: ceFAZolin 2 GM/D5W 50 ML 2 GM/50 ML BAG IVPB ×3 (02:05→18:17)
[2021-12-07 06:00] VITALS: BP 147/81; PULSE 81; RESP 22; TEMP 36.9; O2SAT 100
[2021-12-07 06:39] LABS: Hematocrit 29.3 % (37.0-47.0); Hemoglobin 9.2 g/dL (12.0-15.0); Mean Corpuscular HGB Conc 31.4 g/dl (32-36); Mean Corpuscular Hemoglobin 28.1 pg (26-34); Mean Corpuscular Volume 89.6 fl (80-100); Platelet Count Result 354 k/mm3 (150-375); Red Blood Count 3.27 M/mm3 (4.2-5.4); Red Cell Distribution Width 13.2 % (11.5-14.5); White Blood Count 9.2 K/mm3 (4.5-10.0)
[2021-12-07 06:46] LABS: Anion Gap 4 mmol/L (8-16); Blood Urea Nitrogen 9 mg/dL (7-17); Calcium 7.9 mg/dL (8.4-10.2); Carbon Dioxide 27 mmol/L (22-30); Chloride 97 mmol/L (98-107); Estimated CRCL calculation 44 ml/min; Estimated Glomerular Filt Rate > 60; Glucose 86 mg/dL (65-110); Potassium 3.7 mmol/L (3.4-5.0); Sodium 128 mmol/L (137-145)
[2021-12-07 07:47] LABS: Thyroid Stimulating Hormone Reflex 0.883 uIU/mL (0.465-4.68)
[2021-12-07 08:00] VITALS: PULSE 81; RESP 22; O2SAT 100
[2021-12-07 08:15] VITALS: O2SAT 91
[2021-12-07] MEDS: FAMOTIDINE 20 MG TABLET PO ×2 (09:36→20:53)
[2021-12-07] MEDS: ENOXAPARIN 30 MG/0.3 ML SYRINGE SUB-Q ×2 (09:36→20:57)
[2021-12-07] MEDS: ROSUVASTATIN 10 MG TABLET PO (09:36)
[2021-12-07] MEDS: SODIUM CHLORIDE 500 MG TABLET PO ×2 (09:36→18:17)
--- NOTE | 2021-12-07 10:15 | P.PNIM_ITS ---
Progress Note: A&P Assessment and Plan (1) Non-healing wound of left lower extremity: Code(s): S81.802A - Unspecified open wound, left lower leg, initial encounter Status: Chronic Assessment and Plan: * Reported 1 month of non-healing foot wound * General surgery consult appreciate his recommendation. Surgical procedure performed on 12/02/2021. A below the knee amputation was performed * IV pain management with morphine and oral pain management with tramadol * Cefazolin 2gm Q8Hr, consider deescalation * Post op care per general surgery * Low fiber diet * * PT/OT continues * Case management consult for further management of the patient's placement needs to a skilled facility * peer to peer was performed and the patient had been accepted with her insurance company for skilled therapy, 2 hours daily and monitoring serial labs. (2) Acute respiratory failure: Code(s): J96.00 - Acute respiratory failure, unspecified whether with hypoxia or hypercapnia Status: Acute Assessment and Plan: * home oxygen evaluation. Wean oxygen off as tolerated * Repeat ABGs showed improvement on 12/05/2021, patient is currently on 0-2L oxygen NC, 95% on room air * repeat chest xray * Events On 12/04/21 Patient is unable to complete full sentences and is tripoding.--Patient is noted to be tachypneic with an O2 saturation of 84. ABGs reviewed from 12/04/2021. Patient did have a pH of 7.511, pO2 55.1 and pCO2 35.6, bicarb 27.8 * 12/04/2021 Chest x-ray shows pulmonary vascular congestion without pulmonary edema with a new mild bibasilar opacity which could represent atelectasis or pneumonia * D-dimer mildly elevated at 1.52, possibly due to his recent surgery and illness/gangrenous foot * CTA negative for pulmonary embolism, did result in findings of bilateral atelectasis versus pneumonia. Given the patient's clinical picture today and no leukocytosis with recent surgery, suggestive of bilateral atelectasis. Will encourage patient to do incentive spirometry * Continue to trend respiratory status (3) Hyponatremia: Code(s): E87.1 - Hypo-osmolality and hyponatremia Status: Acute Assessment and Plan: * Monitor serum electrolytes. Sodium upon admission was 131, down trended after surgical intervention and IV fluids. Patient's sodium decreased to 123 on 12/03/2021. Slowly up trending as patient's oral intake has improved. IV fluids discontinued and a sodium bicarb tablet was administered. * Nephrology consulted for hyponatremia, appreciate assistance and recommendations * Urine studies performed * FENa score is 2.2 (4) Ischemic pain of left foot: Code(s): M79.672 - Pain in left foot; I99.8 - Other disorder of circulatory system Status: Chronic Assessment and Plan: * Pain medications on board * Surgery consulted thank you for your recommendations * See above (5) Gangrene of left foot: Code(s): I96 - Gangrene, not elsewhere classified Status: Chronic Assessment and Plan: * Multiple areas of noted gangrene * Antibiotics on board * BKA scheduled 12/02/21 * 2/2 above (6) Tobacco abuse: Code(s): Z72.0 - Tobacco use Status: Chronic Assessment and Plan: * Smoking cessation counseling given for 3 minutes, add nicotine patch daily (7) Hyperlipidemia: Code(s): E78.5 - Hyperlipidemia, unspecified Status: Acute Assessment
--- NOTE | 2021-12-07 10:15 | PM.IMPN ---
Progress Note: A&P Assessment and Plan (1) Non-healing wound of left lower extremity: Code(s): S81.802A - Unspecified open wound, left lower leg, initial encounter Status: Chronic Assessment and Plan: Reported 1 month of non-healing foot wound General surgery consult appreciate his recommendation. Surgical procedure performed on 12/02/2021. A below the knee amputation was performed IV pain management with morphine and oral pain management with tramadol Cefazolin 2gm Q8Hr, consider deescalation Post op care per general surgery Low fiber diet PT/OT continues Case management consult for further management of the patient's placement needs to a skilled facility peer to peer was performed and the patient had been accepted with her insurance company for skilled therapy, 2 hours daily and monitoring serial labs. (2) Acute respiratory failure: Code(s): J96.00 - Acute respiratory failure, unspecified whether with hypoxia or hypercapnia Status: Acute Assessment and Plan: home oxygen evaluation. Wean oxygen off as tolerated Repeat ABGs showed improvement on 12/05/2021, patient is currently on 0-2L oxygen NC, 95% on room air repeat chest xray Events On 12/04/21 Patient is unable to complete full sentences and is tripoding.--Patient is noted to be tachypneic with an O2 saturation of 84. ABGs reviewed from 12/04/2021. Patient did have a pH of 7.511, pO2 55.1 and pCO2 35.6, bicarb 27.8 12/04/2021 Chest x-ray shows pulmonary vascular congestion without pulmonary edema with a new mild bibasilar opacity which could represent atelectasis or pneumonia D-dimer mildly elevated at 1.52, possibly due to his recent surgery and illness/gangrenous foot CTA negative for pulmonary embolism, did result in findings of bilateral atelectasis versus pneumonia. Given the patient's clinical picture today and no leukocytosis with recent surgery, suggestive of bilateral atelectasis. Will encourage patient to do incentive spirometry Continue to trend respiratory status (3) Hyponatremia: Code(s): E87.1 - Hypo-osmolality and hyponatremia Status: Acute Assessment and Plan: Monitor serum electrolytes. Sodium upon admission was 131, down trended after surgical intervention and IV fluids. Patient's sodium decreased to 123 on 12/03/2021. Slowly up trending as patient's oral intake has improved. IV fluids discontinued and a sodium bicarb tablet was administered. Nephrology consulted for hyponatremia, appreciate assistance and recommendations Urine studies performed FENa score is 2.2 (4) Ischemic pain of left foot: Code(s): M79.672 - Pain in left foot; I99.8 - Other disorder of circulatory system Status: Chronic Assessment and Plan: Pain medications on board Surgery consulted thank you for your recommendations See above (5) Gangrene of left foot: Code(s): I96 - Gangrene, not elsewhere classified Status: Chronic Assessment and Plan: Multiple areas of noted gangrene Antibiotics on board BKA scheduled 12/02/21 2/2 above (6) Tobacco abuse: Code(s): Z72.0 - Tobacco use Status: Chronic Assessment and Plan: Smoking cessation counseling given for 3 minutes, add nicotine patch daily (7) Hyperlipidemia: Code(s): E78.5 - Hyperlipidemia, unspecified Status: Acute Assessment and Plan: Continue home crestor (8) Afib: Code(s): I48.91 - Unspecified atrial fibrillation Status: Acute Assessment and Plan: Reports tachycardia Continue home Cardizem Trend heart rate (9) D-dimer, elevated: Code(s): R79.89 - Other specified abnormal findings of blood chemistry Status: Acute Assessment and Plan: D. Dimer elevated at 1.52 possibly due to recent illness and limb ischemia, CTA was performed to rule out a pulmonary embolis
--- NOTE | 2021-12-07 12:24 | PM.PNNEP ---
Progress Note: A&P Assessment and Plan (1) Hyponatremia: Code(s): E87.1 - Hypo-osmolality and hyponatremia Status: Acute Assessment and Plan: possibly acute on chronic -- sodium 131mmol/L on admission possibly from underlying smoking history/lung disease exacerbated by recent surgery (?) -- from anesthesia versus pain versus pain medications? 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 by Surgery local wound care, and pain control (3) Acute respiratory failure: Code(s): J96.00 - Acute respiratory failure, unspecified whether with hypoxia or hypercapnia Status: Acute Assessment and Plan: events noted on 12/04/21 with noted imaging presumed to be post-op atelectasis incentive spiromery supplemental oxygen PRN (4) Hypertension: Code(s): I10 - Essential (primary) hypertension Status: Acute Assessment and Plan: well controlled follow trend of hemodynamics (5) Afib: Code(s): I48.91 - Unspecified atrial fibrillation Status: Acute Assessment and Plan: rate control strategy anticoagulation(?) Will continue to follow. Subjective Date/time seen: 12/07/21 12:24 Slow and steady improvement noted at this time; pain control appears satisfactory; eating and drinking okay; sodium fluctuating a bit but still relatively stable and asymptomatic from it; no issues overnight or earlier this morning to report. Exam Narrative: General: WD/WN elderly AA female in NAD Heart: normal S1 and S2; no rub Lungs: clear to auscultation Abdomen: soft, nontender, nondistended, positive bowel sounds Extremities: no cyanosis or clubbing; no edema; s/p left BKA Skin: warm and intact Objective Data Vital Signs Vital Signs: Vital Signs Temp Pulse Resp BP Pulse Ox 12/07/21 08:15 91 12/07/21 08:00 81 22 H 100 12/07/21 06:00 36.9 C 81 22 H 147/81 H 100 12/06/21 22:00 36.4 C L 71 24 H 120/74 99 Intake/Output Intake/Output: Intake & Output 12/04/21 12/05/21 12/06/21 12/07/21 23:59 23:59 23:59 23:59 Intake Total 2522 730 1720 270 Output Total 200 200 200 Balance 2522 530 1520 70 Meds/Results Medications: Active Medications Generic Name Dose Route Start Last Admin Trade Name Freq PRN Reason Stop Dose Admin Acetaminophen 650 mg 12/01/21 16:52 Acetaminophen 325 Mg Tablet PO Q4H PRN Mild Pain (1-3) or Fever Hydrocodone Bitart/Acetaminophen 1 tab 12/02/21 15:22 12/06/21 19:56 Hydrocodone/Acetaminophen (*Crx) 7.5-325 Mg Tablet PO 1 tab Q4H PRN Administration Pain Rated 7-10 Al Hydrox/Mg Hydrox/Simethicone 30 ml 12/01/21 16:52 Mag Hydrox/Al Hydrox/Simeth 30 Ml Udc PO QID PRN Dyspepsia Diltiazem HCl 240 mg 12/02/21 09:00 12/07/21 09:36 Diltiazem Hcl Cd 240 Mg Cap.Er.24h PO 240 mg DAILY DANTE Administration Enoxaparin Sodium 30 mg 12/02/21 21:00 12/07/21 09:36 Enoxaparin 30 Mg/0.3 Ml Syringe SUB-Q 30 mg Q12HR DANTE Administration Famotidine 20 mg 12/02/21 21:00 12/07/21 09:36 Famotidine 20 Mg Tablet PO 20 mg Q12HR DANTE Administration Cefazolin Sodium 2 gm in 50 mls @ 100 mls/hr 12/01/21 18:00 12/07/21 09:38 Ancef 2 Gm/D5w 50 Ml IVPB 100 mls/hr Q8H DANTE Administration Morphine Sulfate 2 mg 12/02/21 15:22 12/06/21 12:41 Morphine Sulfate (*Crx) 2 Mg/Ml Inj IV PUSH 2 mg Q2H PRN Administration Pain Rated 4-6 Morphine Sulfate 4 mg 12/02/21 15:22 Morphine Sulfate (*Crx) 4 Mg/Ml Inj IV PUSH Q2H PRN Pain Rated 7-10 N
--- NOTE | 2021-12-07 12:24 | P.PNNP_ITS ---
Progress Note: A&P Assessment and Plan (1) Hyponatremia: Code(s): E87.1 - Hypo-osmolality and hyponatremia Status: Acute Assessment and Plan: * possibly acute on chronic -- sodium 131mmol/L on admission * possibly from underlying smoking history/lung disease * exacerbated by recent surgery (?) -- from anesthesia versus pain versus pain medications? 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 by Surgery * local wound care, and pain control (3) Acute respiratory failure: Code(s): J96.00 - Acute respiratory failure, unspecified whether with hypoxia or hypercapnia Status: Acute Assessment and Plan: * events noted on 12/04/21 with noted imaging * presumed to be post-op atelectasis * incentive spiromery * supplemental oxygen PRN (4) Hypertension: Code(s): I10 - Essential (primary) hypertension Status: Acute Assessment and Plan: * well controlled * follow trend of hemodynamics (5) Afib: Code(s): I48.91 - Unspecified atrial fibrillation Status: Acute Assessment and Plan: * rate control strategy * anticoagulation(?) Will continue to follow. Subjective Date/time seen: 12/07/21 12:24 Slow and steady improvement noted at this time; pain control appears satisfac tory; eating and drinking okay; sodium fluctuating a bit but still relatively stable and asymptomatic from it; no issues overnight or earlier this morning to report. Exam Narrative: General: WD/WN elderly AA female in NAD Heart: normal S1 and S2; no rub Lungs: clear to auscultation Abdomen: soft, nontender, nondistended, positive bowel sounds Extremities: no cyanosis or clubbing; no edema; s/p left BKA Skin: warm and intact Objective Data Vital Signs Vital Signs: Vital Signs Temp Pulse Resp BP Pulse Ox 12/07/21 08:15 91 12/07/21 08:00 81 22 H 100 12/07/21 06:00 36.9 C 81 22 H 147/81 H 100 12/06/21 22:00 36.4 C L 71 24 H 120/74 99 Intake/Output Intake/Output: Intake & Output 12/04/21 12/05/21 12/06/21 12/07/21 23:59 23:59 23:59 23:59 Intake Total 2522 730 1720 270 Output Total 200 200 200 Balance 2522 530 1520 70 Meds/Results Medications: Active Medications Generic Name Dose Route Start Last Admin Trade Name Freq PRN Reason Stop Dose Admin Acetaminophen 650 mg 12/01/21 16:52 Acetaminophen 325 Mg Tablet PO Q4H PRN Mild Pain (1-3) or Fever Hydrocodone Bitart/Acetaminophen 1 tab 12/02/21 15:22 12/06/21 19:56 Hydrocodone/Acetaminophen (*Crx) 7.5-325 Mg Tablet PO 1 tab Q4H PRN Administration Pain Rated 7-10 Al Hydrox/Mg Hydrox/Simethicone 30 ml 12/01/21 16:52 Mag Hydrox/Al Hydrox/Simeth 30 Ml Udc PO QID PRN Dyspepsia Diltiazem HCl 240 mg 12/02/21 09:00
--- NOTE | 2021-12-07 13:02 | PM.PNGS ---
Progress Note: A&P Assessment and Plan (1) Status post below-knee amputation of left lower extremity: Code(s): Z89.512 - Acquired absence of left leg below knee Status: Acute Assessment and Plan: doing well, cont routine postop care, to SNF soon Subjective Subjective Date/Time Seen: 12/07/21 13:02 no issues, no complaints, no pain Review of Systems Review of Systems: All systems reviewed & are unremarkable except as noted in HPI and below Exam Const: General: cooperative, comfortable and no acute distress Resp: Auscultation: clear to auscultation bilaterally Cardio: Rate: regular rate Rhythm: regular rhythm Extrem: Other: L BKA drsg - C/D/I Objective Data Vital Signs Vital Signs: Vital Signs - 24 hr 12/06/21 14:00 12/06/21 22:00 12/07/21 06:00 Temperature 36.2 C L 36.4 C L 36.9 C Pulse Rate 73 71 81 Respiratory Rate 22 H 24 H 22 H Blood Pressure 110/78 120/74 147/81 H Pulse Oximetry 90 99 100 12/07/21 08:00 Temperature Pulse Rate 81 Respiratory Rate 22 H Blood Pressure Pulse Oximetry 100 Intake/Output Intake/Output: Intake & Output 12/04/21 12/05/21 12/06/21 12/07/21 23:59 23:59 23:59 23:59 Intake Total 2522 730 1720 270 Output Total 200 200 200 Balance 2522 530 1520 70 Meds/Results Medications: Active Medications Generic Name Dose Route Start Last Admin Trade Name Freq PRN Reason Stop Dose Admin Acetaminophen 650 mg 12/01/21 16:52 Acetaminophen 325 Mg Tablet PO Q4H PRN Mild Pain (1-3) or Fever Hydrocodone Bitart/Acetaminophen 1 tab 12/02/21 15:22 12/06/21 19:56 Hydrocodone/Acetaminophen (*Crx) 7.5-325 Mg Tablet PO 1 tab Q4H PRN Administration Pain Rated 7-10 Al Hydrox/Mg Hydrox/Simethicone 30 ml 12/01/21 16:52 Mag Hydrox/Al Hydrox/Simeth 30 Ml Udc PO QID PRN Dyspepsia Diltiazem HCl 240 mg 12/02/21 09:00 12/07/21 09:36 Diltiazem Hcl Cd 240 Mg Cap.Er.24h PO 240 mg DAILY DANTE Administration Enoxaparin Sodium 30 mg 12/02/21 21:00 12/07/21 09:36 Enoxaparin 30 Mg/0.3 Ml Syringe SUB-Q 30 mg Q12HR DANTE Administration Famotidine 20 mg 12/02/21 21:00 12/07/21 09:36 Famotidine 20 Mg Tablet PO 20 mg Q12HR DANTE Administration Cefazolin Sodium 2 gm in 50 mls @ 100 mls/hr 12/01/21 18:00 12/07/21 09:38 Ancef 2 Gm/D5w 50 Ml IVPB 100 mls/hr Q8H DANTE Administration Morphine Sulfate 2 mg 12/02/21 15:22 12/06/21 12:41 Morphine Sulfate (*Crx) 2 Mg/Ml Inj IV PUSH 2 mg Q2H PRN Administration Pain Rated 4-6 Morphine Sulfate 4 mg 12/02/21 15:22 Morphine Sulfate (*Crx) 4 Mg/Ml Inj IV PUSH Q2H PRN Pain Rated 7-10 Naloxone HCl 0.1 mg 12/02/21 15:22 Naloxone Hcl 0.4 Mg/Ml Vial IV PUSH Q2M PRN Opiate Reversal Ondansetron HCl 4 mg 12/02/21 15:22 Ondansetron Inj 4 Mg/2 Ml Vial IV PUSH Q4H PRN Nausea And Vomiting Rosuvastatin Calcium 10 mg 12/02/21 09:00 12/07/21 09:36 Rosuvastatin 10 Mg Tablet PO 10 mg DAILY DANTE Administration Sodium Chloride 500 mg 12/04/21 17:00 12/07/21 09:36 Sodium Chloride 500 Mg Tablet PO 500 mg BID DANTE Administration Tobramycin Sulfate 1 drop 12/01/21 17:15 12/07/21 09:36 Tobramycin Sulfate 0.3% Ophth Soln 5 Ml EACH EYE 1 drop Q4HR DANTE Administration Tramadol HCl 50 mg 12/01/21 16:57 12/06/21 14:18 Tramadol Hcl (*Crx) 50 Mg Tablet PO 50 mg Q6H PRN Administration Pain Rated 4-6 Radiology Results: ITS Impressions Chest X-Ray 12/04/21 14:15 IMPRESSION: 1. New mild bibasilar opacities which could represent atelectasis or pneumonia. 2. Cardiomegaly with pulmonary vascular congestion but without uma pulmonary edema. Chest CTA 12/04/21 16:32 IMPRESSION: No evidence of pulmonary embolus Emphysema Bilateral upper and to a greater extent lower lobe dependent atelectasis/infiltrate Cardiomegaly, coronary atherosclerosis Labs Lab
[2021-12-07 14:00] VITALS: BP 124/68; PULSE 78; RESP 18; TEMP 36.8; O2SAT 100
[2021-12-07 21:06] VITALS: BP 118/66; PULSE 77; RESP 26; TEMP 36.6; O2SAT 97
[2021-12-08] VITALS (7 sets, daily range): BP systolic 102–126; BP diastolic 54–67; PULSE 63–74; RESP 18–22; TEMP 36.1–36.7; O2SAT 93–99; BMI 23.0
[2021-12-08] MEDS: ceFAZolin 2 GM/D5W 50 ML 2 GM/50 ML BAG IVPB ×3 (02:42→17:21)
[2021-12-08] MEDS: TOBRAMYCIN SULFATE 0.3% OPHTH SOLN 5 ML 1 DROP EACH EYE ×5 (02:42→20:55)
[2021-12-08] MEDS: HYDROcodone/acetaminophen (*CRX) 7.5-325 MG TABLET 1 TAB PO ×2 (03:32→08:21)
[2021-12-08 06:06] LABS: Hematocrit 27.4 % (37.0-47.0); Hemoglobin 8.6 g/dL (12.0-15.0); Mean Corpuscular HGB Conc 31.4 g/dl (32-36); Mean Corpuscular Volume 89.3 fl (80-100); Mean Platelet Volume 9.9 fl (7.4-10.4); Platelet Count Result 331 k/mm3 (150-375); Red Blood Count 3.07 M/mm3 (4.2-5.4); Red Cell Distribution Width 13.3 % (11.5-14.5); White Blood Count 8.6 K/mm3 (4.5-10.0)
[2021-12-08 06:12] LABS: Anion Gap 3 mmol/L (8-16); Blood Urea Nitrogen 11 mg/dL (7-17); Carbon Dioxide 29 mmol/L (22-30); Chloride 99 mmol/L (98-107); Estimated CRCL calculation 35 ml/min; Estimated Glomerular Filt Rate > 60; Glucose 104 mg/dL (65-110); Potassium 3.5 mmol/L (3.4-5.0); Sodium 131 mmol/L (137-145)
[2021-12-08] MEDS: FAMOTIDINE 20 MG TABLET PO ×2 (08:21→20:55)
[2021-12-08] MEDS: ENOXAPARIN 30 MG/0.3 ML SYRINGE SUB-Q ×2 (08:22→20:55)
[2021-12-08] MEDS: ROSUVASTATIN 10 MG TABLET PO (08:22)
[2021-12-08] MEDS: SODIUM CHLORIDE 500 MG TABLET PO ×2 (08:22→17:21)
--- NOTE | 2021-12-08 09:30 | PM.IMPN ---
Progress Note: A&P Assessment and Plan (1) Non-healing wound of left lower extremity: Code(s): S81.802A - Unspecified open wound, left lower leg, initial encounter Status: Chronic Assessment and Plan: Reported 1 month of non-healing foot wound General surgery consult appreciate his recommendation. Surgical procedure performed on 12/02/2021. A below the knee amputation was performed IV pain management with morphine and oral pain management with tramadol Cefazolin 2gm Q8Hr, consider deescalation Post op care per general surgery Low fiber diet PT/OT continues Case management consult for further management of the patient's placement needs to a skilled facility peer to peer was performed and the patient had been accepted with her insurance company for skilled therapy, 2 hours daily and monitoring serial labs. Will need to appeal as the patient is wanting to go to [facility]. General surgery started appeal process (2) Acute respiratory failure: Code(s): J96.00 - Acute respiratory failure, unspecified whether with hypoxia or hypercapnia Status: Acute Assessment and Plan: Will not need oxygen evaluation, as she will be going to facility Repeat ABGs showed improvement on 12/05/2021, patient is currently on 0-2L oxygen NC, 95% on room air repeat chest xray in the am Events On 12/04/21 Patient is unable to complete full sentences and is tripoding.--Patient is noted to be tachypneic with an O2 saturation of 84. ABGs reviewed from 12/04/2021. Patient did have a pH of 7.511, pO2 55.1 and pCO2 35.6, bicarb 27.8 12/04/2021 Chest x-ray shows pulmonary vascular congestion without pulmonary edema with a new mild bibasilar opacity which could represent atelectasis or pneumonia D-dimer mildly elevated at 1.52, possibly due to his recent surgery and illness/gangrenous foot CTA negative for pulmonary embolism, did result in findings of bilateral atelectasis versus pneumonia. Given the patient's clinical picture today and no leukocytosis with recent surgery, suggestive of bilateral atelectasis. Will encourage patient to do incentive spirometry Continue to trend respiratory status (3) Hyponatremia: Code(s): E87.1 - Hypo-osmolality and hyponatremia Status: Acute Assessment and Plan: Sodium currently 132 Monitor serum electrolytes. Sodium upon admission was 131, down trended after surgical intervention and IV fluids. Patient's sodium decreased to 123 on 12/03/2021. Slowly up trending as patient's oral intake has improved. IV fluids discontinued and a sodium bicarb tablet was administered. Nephrology consulted for hyponatremia, appreciate assistance and recommendations Urine studies performed FENa score is 2.2 (4) Ischemic pain of left foot: Code(s): M79.672 - Pain in left foot; I99.8 - Other disorder of circulatory system Status: Chronic Assessment and Plan: Pain medications on board Surgery consulted thank you for your recommendations See above (5) Gangrene of left foot: Code(s): I96 - Gangrene, not elsewhere classified Status: Chronic Assessment and Plan: Multiple areas of noted gangrene Antibiotics on board BKA scheduled 12/02/21 2/ above (6) Tobacco abuse: Code(s): Z72.0 - Tobacco use Status: Chronic Assessment and Plan: Smoking cessation counseling given for 3 minutes, add nicotine patch daily (7) Hyperlipidemia: Code(s): E78.5 - Hyperlipidemia, unspecified Status: Acute Assessment and Plan: Continue home crestor (8) Afib: Code(s): I48.91 - Unspecified atrial fibrillation Status: Acute Assessment and Plan: Reports tachycardia Continue home Cardizem Trend heart rate (9) D-dimer, elevated: Code(s): R79.89 - Other specified abnormal findings of blood chemistry Status:
--- NOTE | 2021-12-08 09:30 | P.PNIM_ITS ---
Progress Note: A&P Assessment and Plan (1) Non-healing wound of left lower extremity: Code(s): S81.802A - Unspecified open wound, left lower leg, initial encounter Status: Chronic Assessment and Plan: * Reported 1 month of non-healing foot wound * General surgery consult appreciate his recommendation. Surgical procedure performed on 12/02/2021. A below the knee amputation was performed * IV pain management with morphine and oral pain management with tramadol * Cefazolin 2gm Q8Hr, consider deescalation * Post op care per general surgery * Low fiber diet * PT/OT continues * Case management consult for further management of the patient's placement needs to a skilled facility * peer to peer was performed and the patient had been accepted with her insurance company for skilled therapy, 2 hours daily and monitoring serial labs. * Will need to appeal as the patient is wanting to go to [facility]. General surgery started appeal process (2) Acute respiratory failure: Code(s): J96.00 - Acute respiratory failure, unspecified whether with hypoxia or hypercapnia Status: Acute Assessment and Plan: * Will not need oxygen evaluation, as she will be going to facility * Repeat ABGs showed improvement on 12/05/2021, patient is currently on 0-2L oxygen NC, 95% on room air * repeat chest xray in the am * Events On 12/04/21 Patient is unable to complete full sentences and is tripoding.--Patient is noted to be tachypneic with an O2 saturation of 84. ABGs reviewed from 12/04/2021. Patient did have a pH of 7.511, pO2 55.1 and pCO2 35.6, bicarb 27.8 * 12/04/2021 Chest x-ray shows pulmonary vascular congestion without pulmonary edema with a new mild bibasilar opacity which could represent atelectasis or pneumonia * D-dimer mildly elevated at 1.52, possibly due to his recent surgery and illness/gangrenous foot * CTA negative for pulmonary embolism, did result in findings of bilateral atelectasis versus pneumonia. Given the patient's clinical picture today and no leukocytosis with recent surgery, suggestive of bilateral atelectasis. Will encourage patient to do incentive spirometry * Continue to trend respiratory status (3) Hyponatremia: Code(s): E87.1 - Hypo-osmolality and hyponatremia Status: Acute Assessment and Plan: * Sodium currently 132 * Monitor serum electrolytes. Sodium upon admission was 131, down trended after surgical intervention and IV fluids. Patient's sodium decreased to 123 on 12/03/2021. Slowly up trending as patient's oral intake has improved. IV f luids discontinued and a sodium bicarb tablet was administered. * Nephrology consulted for hyponatremia, appreciate assistance and recommendations * Urine studies performed * FENa score is 2.2 (4) Ischemic pain of left foot: Code(s): M79.672 - Pain in left foot; I99.8 - Other disorder of circulatory system Status: Chronic Assessment and Plan: * Pain medications on board * Surgery consulted thank you for your recommendations * See above (5) Gangrene of left foot: Code(s): I96 - Gangrene, not elsewhere classified Status: Chronic Assessment and Plan: * Multiple areas of noted gangrene * Antibiotics on board * BKA scheduled 12/02/21 * 2/2 above (6) Tobacco abuse: Code(s): Z72.0 - Tobacco use Status: Chronic Assessment and Plan: * Smoking cessation counseling given for 3 minutes, add nicotine patch da
--- NOTE | 2021-12-08 10:40 | PM.PNGS ---
Progress Note: A&P Assessment and Plan (1) Status post below-knee amputation of left lower extremity: Code(s): Z89.512 - Acquired absence of left leg below knee Status: Acute Assessment and Plan: Continue routine post-op care, PT/OT. Left BKA stump healing well. Applied stump sock today. Continue to elevate LLE on pillow when at rest. Working on discharge planning. Will attempt to call [facility] today for fast appeal for authorization to [facility]. Patient would benefit from more therapy at [facility] and was previously independent at home. She is motivated to return home as soon as possible after rehab and is interested in eventually having a prosthesis. Spoke with , who will also look at options for SNF if [facility] is denied. Additional Plan I have discussed the patient's case and plan of care with Dr. Vasquez. Subjective Subjective Date/Time Seen: 12/08/21 10:40 Post Op day: 6 Patient reports: no new complaints, tolerating a regular diet and afebrile Interval history: Patient seen and examined with Dr. Vasquez. She has no specific complaints. She is resting comfortably in the chair. Per care coordination, she would qualify for SNF, but would need a fast appeal through her insurance to potentially qualify for [facility]. Requesting that we call for the fast appeal for discharge planning. Patient would still like to try to go to [facility] on discharge but is open to other options if needed. Review of Systems Review of Systems: All systems reviewed & are unremarkable except as noted in HPI and below Exam Const: General: comfortable, no acute distress and awake Orientation/consciousness: patient oriented x3 Extrem: Other: Left BKA dressing removed, sutures in place and amputation stump healing well. No signs of infection. Applied 4x4 gauze and stump sock today. Psych: Insight: Good insight present (Psych) Judgement: Good judgement present (Psych) Objective Data Vital Signs Vital Signs: Vital Signs - 24 hr 12/07/21 14:00 12/07/21 21:06 12/08/21 06:00 Temperature 98.2 F 97.8 F 97.2 F L Pulse Rate 78 77 63 Respiratory Rate 18 26 H 22 H Blood Pressure 124/68 118/66 126/67 Pulse Oximetry 100 97 96 12/08/21 08:20 Temperature Pulse Rate Respiratory Rate Blood Pressure Pulse Oximetry 93 Intake/Output Intake/Output: Intake & Output 12/05/21 12/06/21 12/07/21 12/08/21 23:59 23:59 23:59 23:59 Intake Total 730 1720 370 220 Output Total 200 200 500 Balance 530 1520 -130 220 Meds/Results Medications: Active Medications Generic Name Dose Route Start Last Admin Trade Name Freq PRN Reason Stop Dose Admin Acetaminophen 650 mg 12/01/21 16:52 Acetaminophen 325 Mg Tablet PO Q4H PRN Mild Pain (1-3) or Fever Hydrocodone Bitart/Acetaminophen 1 tab 12/02/21 15:22 12/08/21 08:21 Hydrocodone/Acetaminophen (*Crx) 7.5-325 Mg Tablet PO 1 tab Q4H PRN Administration Pain Rated 7-10 Al Hydrox/Mg Hydrox/Simethicone 30 ml 12/01/21 16:52 Mag Hydrox/Al Hydrox/Simeth 30 Ml Udc PO QID PRN Dyspepsia Diltiazem HCl 240 mg 12/02/21 09:00 12/08/21 08:21 Diltiazem Hcl Cd 240 Mg Cap.Er.24h PO 240 mg DAILY DANTE Administration Enoxaparin Sodium 30 mg 12/02/21 21:00 12/08/21 08:22 Enoxaparin 30 Mg/0.3 Ml Syringe SUB-Q 30 mg Q12HR DANTE Administration Famotidine 20 mg 12/02/21 21:00 12/08/21 08:21 Famotidine 20 Mg Tablet PO 20 mg Q12HR DANTE Administration Cefazolin Sodium 2 gm in 50 mls @ 100 mls/hr 12/01/21 18:00 12/08/21 09:36 Ancef 2 Gm/D5w 50 Ml IVPB Infused Q8H DANTE Infusion Morphine Sulfate 2 mg 12/02/21 15:22 12/06/21 12:41 Morphine Sulfate (*Crx) 2 Mg/Ml Inj IV PUSH 2 mg Q2H PRN Administration Pain Rated 4-6 Morphine Sulfate 4 mg 12/02/21 15:22 Morphine Sulfate (*Crx) 4 Mg/Ml Inj IV PUSH Q2H PRN Pain Rated 7-10 Naloxone HCl 0.1 mg 12/02/21 15:22 Naloxone Hcl 0.4 Mg/Ml Vial IV PUSH Q2M PRN
--- NOTE | 2021-12-08 15:47 | P.PNNP_ITS ---
Progress Note: A&P Assessment and Plan (1) Hyponatremia: Code(s): E87.1 - Hypo-osmolality and hyponatremia Status: Acute Assessment and Plan: * possibly acute on chronic -- sodium 131mmol/L on admission * possibly from underlying smoking history/lung disease * urine electrolytes non-prerenal * TSH and cortisol okay; SPEP and UPEP pending * CT chest is negative for cancer * she has no history of cancer. * No history of brain tumor or stroke. * It is unclear whether she had hyponatremia before she came in are not. Can try to get records from her primary care physician. * Etiology of current hyponatremia is probably related to her medical illness, Pulmonary disease, water drinking with poor p.o. intake, narcotics, and hydration status. * Will keep an eye on how the sodium does going forward. If she has persistent hyponatremia as an outpatient then perhaps she would need other evaluation such as brain imaging. * Currently not on any particular regimen for the hyponatremia. It is getting itself better (2) Non-healing wound of left lower extremity: Code(s): S81.802A - Unspecified open wound, left lower leg, initial encounter Status: Chronic Assessment and Plan: * wound present for almost a month * complicated by ischemic pain as well as gangrene * s/p left BKA on 12/02/21 by Surgery * local wound care, and pain control (3) Acute respiratory failure: Code(s): J96.00 - Acute respiratory failure, unspecified whether with hypoxia or hypercapnia Status: Acute Assessment and Plan: * events noted on 12/04/21 with noted imaging * presumed to be post-op atelectasis * incentive spiromery * breathing okay right now. (4) Hypertension: Code(s): I10 - Essential (primary) hypertension Status: Acute Assessment and Plan: * well controlled * follow trend of hemodynamics (5) Afib: Code(s): I48.91 - Unspecified atrial fibrillation Status: Acute Assessment and Plan: * heart rate is 66 * anticoagulation(?) Subjective Date/time seen: 12/08/21 15:47 Interval history: Carmen is feeling better today. She does not like her diet. She says the food's bad anyway. No chest pain or shortness of breath. Exam Narrative: General: WD/WN elderly AA female in NAD Heart: normal S1 and S2; no rub Lungs: clear to auscultation Abdomen: soft, nontender, nondistended, positive bowel sounds Extremities: no cyanosis or clubbing; no edema; s/p left BKA. Bandage on. Skin: No rash Objective Data Vital Signs Vital Signs: Vital Signs - 24 hr 12/07/21 21:06 12/08/21 06:00 12/08/21 08:20 Temperature 36.6 C 36.2 C L Pulse Rate 77 63 Respiratory Rate 26 H 22 H Blood Pressure 118/66 126/67 Pulse Oximetry 97 96 93 12/08/21 14:00 Temperature 36.1 C L Pulse Rate 66 Respiratory Rate 18 Blood Pressure 102/54 L Pulse Oximetry 98 Intake/Output Intake/Output: Intake & Output 12/05/21 12/06/21 12/07/21 12/08/21 23:59 23:59 23:59 23:59 Intake Total 730 1720 370 460 Output Total 200 200 500 Balance 530 1520 -130 460 Meds/Results Medications: Active Medications Generic Name Dose Route Start Last Admin Trade
--- NOTE | 2021-12-08 15:47 | PM.PNNEP ---
Progress Note: A&P Assessment and Plan (1) Hyponatremia: Code(s): E87.1 - Hypo-osmolality and hyponatremia Status: Acute Assessment and Plan: possibly acute on chronic -- sodium 131mmol/L on admission possibly from underlying smoking history/lung disease urine electrolytes non-prerenal TSH and cortisol okay; SPEP and UPEP pending CT chest is negative for cancer she has no history of cancer. No history of brain tumor or stroke. It is unclear whether she had hyponatremia before she came in are not. Can try to get records from her primary care physician. Etiology of current hyponatremia is probably related to her medical illness, Pulmonary disease, water drinking with poor p.o. intake, narcotics, and hydration status. Will keep an eye on how the sodium does going forward. If she has persistent hyponatremia as an outpatient then perhaps she would need other evaluation such as brain imaging. Currently not on any particular regimen for the hyponatremia. It is getting itself better (2) Non-healing wound of left lower extremity: Code(s): S81.802A - Unspecified open wound, left lower leg, initial encounter Status: Chronic Assessment and Plan: wound present for almost a month complicated by ischemic pain as well as gangrene s/p left BKA on 12/02/21 by Surgery local wound care, and pain control (3) Acute respiratory failure: Code(s): J96.00 - Acute respiratory failure, unspecified whether with hypoxia or hypercapnia Status: Acute Assessment and Plan: events noted on 12/04/21 with noted imaging presumed to be post-op atelectasis incentive spiromery breathing okay right now. (4) Hypertension: Code(s): I10 - Essential (primary) hypertension Status: Acute Assessment and Plan: well controlled follow trend of hemodynamics (5) Afib: Code(s): I48.91 - Unspecified atrial fibrillation Status: Acute Assessment and Plan: heart rate is 66 anticoagulation(?) Subjective Date/time seen: 12/08/21 15:47 Interval history: Carmen is feeling better today. She does not like her diet. She says the food's bad anyway. No chest pain or shortness of breath. Exam Narrative: General: WD/WN elderly AA female in NAD Heart: normal S1 and S2; no rub Lungs: clear to auscultation Abdomen: soft, nontender, nondistended, positive bowel sounds Extremities: no cyanosis or clubbing; no edema; s/p left BKA. Bandage on. Skin: No rash Objective Data Vital Signs Vital Signs: Vital Signs - 24 hr 12/07/21 21:06 12/08/21 06:00 12/08/21 08:20 Temperature 36.6 C 36.2 C L Pulse Rate 77 63 Respiratory Rate 26 H 22 H Blood Pressure 118/66 126/67 Pulse Oximetry 97 96 93 12/08/21 14:00 Temperature 36.1 C L Pulse Rate 66 Respiratory Rate 18 Blood Pressure 102/54 L Pulse Oximetry 98 Intake/Output Intake/Output: Intake & Output 12/05/21 12/06/21 12/07/21 12/08/21 23:59 23:59 23:59 23:59 Intake Total 730 1720 370 460 Output Total 200 200 500 Balance 530 1520 -130 460 Meds/Results Medications: Active Medications Generic Name Dose Route Start Last Admin Trade Name Freq PRN Reason Stop Dose Admin Acetaminophen 650 mg 12/01/21 16:52 Acetaminophen 325 Mg Tablet PO Q4H PRN Mild Pain (1-3) or Fever Hydrocodone Bitart/Acetaminophen 1 tab 12/02/21 15:22 12/08/21 08:21 Hydrocodone/Acetaminophen (*Crx) 7.5-325 Mg Tablet PO 1 tab Q4H PRN Administration Pain Rated 7-10 Al Hydrox/Mg Hydrox/Simethicone 30 ml 12/01/21 16:52 Mag Hydrox/Al Hydrox/Simeth 30 Ml Udc PO QID PRN Dyspepsia Diltiazem HCl 240 mg 12/02/21 09:00 12/08/21 08:21 Diltiazem Hcl Cd 240 Mg Cap.Er.24h PO 240 mg DAILY DANTE Administration Enoxaparin Sodium 30 mg 12/02/21 21:00 12/08/21 08:22 Enoxaparin 30 Mg/0.3 Ml Syringe SUB-Q 30 mg Q12HR DANTE Administration
[2021-12-09] MEDS: ceFAZolin 2 GM/D5W 50 ML 2 GM/50 ML BAG IVPB ×2 (01:57→08:24)
[2021-12-09] MEDS: TOBRAMYCIN SULFATE 0.3% OPHTH SOLN 5 ML 1 DROP EACH EYE ×6 (01:58→21:55)
[2021-12-09 06:00] VITALS: BP 143/79; PULSE 81; RESP 18; TEMP 36.3; O2SAT 93
[2021-12-09 06:08] LABS: Basophils Absolute Auto 0.1 K/mm3 (0.0-0.1); Basophils Percent Auto 0.7 % (0.2-1.2); Eosinophils Absolute Auto 0.3 K/mm3 (0-0.3); Eosinophils Percent Auto 3.8 % (0-4.4); Hematocrit 31.4 % (37.0-47.0); Hemoglobin 9.7 g/dL (12.0-15.0); Immature Granulocyte Absolute 0.07 K/mm3 (0.00-0.031); Immature Granulocyte Percent A 0.8 % (0-0.5); Lymphocytes Absolute Auto 2.03 K/mm3 (0.9-3.2); Lymphocytes Percent Auto 24.1 % (18.3-44.2); Mean Corpuscular HGB Conc 30.9 g/dl (32-36); Mean Corpuscular Hemoglobin 28.5 pg (26-34); Mean Corpuscular Volume 92.4 fl (80-100); Mean Platelet Volume 9.8 fl (7.4-10.4); Monocytes Absolute Auto 0.9 K/mm3 (0.1-0.6); Neutrophils Percent Auto 59.6 % (45.5-73.1); Platelet Count Result 334 k/mm3 (150-375); Red Cell Distribution Width 13.5 % (11.5-14.5); White Blood Count 8.4 K/mm3 (4.5-10.0)
[2021-12-09 06:18] LABS: Alanine Aminotransferase 11 U/L (4-35); Alkaline Phosphatase 77 U/L (38-126); Anion Gap 5 mmol/L (8-16); Aspartate Amino Transferase 41 U/L (14-36); Bilirubin,Total 0.4 mg/dL (0.2-1.3); Blood Urea Nitrogen 8 mg/dL (7-17); Calcium 8.1 mg/dL (8.4-10.2); Carbon Dioxide 29 mmol/L (22-30); Chloride 97 mmol/L (98-107); Estimated CRCL calculation 39 ml/min; Estimated Glomerular Filt Rate > 60; Glucose 95 mg/dL (65-110); Magnesium 1.8 mg/dL (1.6-2.3); Phosphorus 3.2 mg/dL (2.5-4.5); Potassium 3.6 mmol/L (3.4-5.0); Sodium 131 mmol/L (137-145)
[2021-12-09 08:00] VITALS: PULSE 81; RESP 18; O2SAT 92
[2021-12-09] MEDS: ENOXAPARIN 30 MG/0.3 ML SYRINGE SUB-Q ×2 (08:22→21:55)
[2021-12-09] MEDS: FAMOTIDINE 20 MG TABLET PO ×2 (08:23→21:55)
[2021-12-09] MEDS: ROSUVASTATIN 10 MG TABLET PO (08:23)
[2021-12-09] MEDS: SODIUM CHLORIDE 500 MG TABLET PO ×2 (08:23→18:19)
[2021-12-09 08:44] VITALS: O2SAT 92
--- NOTE | 2021-12-09 10:45 | P.PNIM_ITS ---
Progress Note: A&P Assessment and Plan (1) Non-healing wound of left lower extremity: Code(s): S81.802A - Unspecified open wound, left lower leg, initial encounter Status: Chronic Assessment and Plan: * Reported 1 month of non-healing foot wound * General surgery consult appreciate his recommendation. Surgical procedure performed on 12/02/2021. A below the knee amputation was performed * IV pain management with morphine and oral pain management with tramadol * Cefazolin 2gm Q8Hr, consider deescalation, DC'D at this time * Post op care per general surgery * Low fiber diet * PT/OT continues * Case management consult for further management of the patient's placement needs to a skilled facility * peer to peer was performed and the patient had been accepted with her insurance company for skilled therapy, 2 hours daily and monitoring serial labs. * Will need to appeal as the patient is wanting to go to [facility]. General surgery started appeal process (2) Acute respiratory failure: Code(s): J96.00 - Acute respiratory failure, unspecified whether with hypoxia or hypercapnia Status: Acute Assessment and Plan: * Will not need oxygen evaluation, as she will be going to facility * Repeat ABGs showed improvement on 12/05/2021, patient is currently on 0-2L o xygen NC, 95% on room air * repeat chest xray Mild atelectasis at the lung bases * Events On 12/04/21 Patient is unable to complete full sentences and is tripoding.--Patient is noted to be tachypneic with an O2 saturation of 84. ABGs reviewed from 12/04/2021. Patient did have a pH of 7.511, pO2 55.1 and pCO2 35.6, bicarb 27.8 * 12/04/2021 Chest x-ray shows pulmonary vascular congestion without pulmonary edema with a new mild bibasilar opacity which could represent atelectasis or pneumonia * D-dimer mildly elevated at 1.52, possibly due to his recent surgery and illness/gangrenous foot * CTA negative for pulmonary embolism, did result in findings of bilateral atelectasis versus pneumonia. Given the patient's clinical picture today and no leukocytosis with recent surgery, suggestive of bilateral atelectasis. Will encourage patient to do incentive spirometry * Continue to trend respiratory status (3) Hyponatremia: Code(s): E87.1 - Hypo-osmolality and hyponatremia Status: Acute Assessment and Plan: * Sodium currently 131 * Monitor serum electrolytes. Sodium upon admission was 131, down trended after surgical intervention and IV fluids. Patient's sodium decreased to 123 on 12/03/2021. Slowly up trending as patient's oral intake has improved. IV fluids discontinued and a sodium bicarb tablet was administered. * Nephrology consulted for hyponatremia, appreciate assistance and recommendations * Urine studies performed * FENa score is 2.2 (4) Ischemic pain of left foot: Code(s): M79.672 - Pain in left foot; I99.8 - Other disorder of circulatory system Status: Chronic Assessment and Plan: * Pain medications on board * Surgery consulted thank you for your recommendations * See above (5) Gangrene of left foot: Code(s): I96 - Gangrene, not elsewhere classified Status: Chronic Assessment and Plan: * Multiple areas of noted gangrene * Antibiotics on board * BKA scheduled 12/02/21 * 2/2 above (6) Tobacco abuse: Code(s): Z72.0 - Tobacco use Status: Chronic Assessment and Plan: * Smoking cessation counseling
--- NOTE | 2021-12-09 10:45 | PM.IMPN ---
Progress Note: A&P Assessment and Plan (1) Non-healing wound of left lower extremity: Code(s): S81.802A - Unspecified open wound, left lower leg, initial encounter Status: Chronic Assessment and Plan: Reported 1 month of non-healing foot wound General surgery consult appreciate his recommendation. Surgical procedure performed on 12/02/2021. A below the knee amputation was performed IV pain management with morphine and oral pain management with tramadol Cefazolin 2gm Q8Hr, consider deescalation, DC'D at this time Post op care per general surgery Low fiber diet PT/OT continues Case management consult for further management of the patient's placement needs to a skilled facility peer to peer was performed and the patient had been accepted with her insurance company for skilled therapy, 2 hours daily and monitoring serial labs. Will need to appeal as the patient is wanting to go to [facility]. General surgery started appeal process (2) Acute respiratory failure: Code(s): J96.00 - Acute respiratory failure, unspecified whether with hypoxia or hypercapnia Status: Acute Assessment and Plan: Will not need oxygen evaluation, as she will be going to facility Repeat ABGs showed improvement on 12/05/2021, patient is currently on 0-2L oxygen NC, 95% on room air repeat chest xray Mild atelectasis at the lung bases Events On 12/04/21 Patient is unable to complete full sentences and is tripoding.--Patient is noted to be tachypneic with an O2 saturation of 84. ABGs reviewed from 12/04/2021. Patient did have a pH of 7.511, pO2 55.1 and pCO2 35.6, bicarb 27.8 12/04/2021 Chest x-ray shows pulmonary vascular congestion without pulmonary edema with a new mild bibasilar opacity which could represent atelectasis or pneumonia D-dimer mildly elevated at 1.52, possibly due to his recent surgery and illness/gangrenous foot CTA negative for pulmonary embolism, did result in findings of bilateral atelectasis versus pneumonia. Given the patient's clinical picture today and no leukocytosis with recent surgery, suggestive of bilateral atelectasis. Will encourage patient to do incentive spirometry Continue to trend respiratory status (3) Hyponatremia: Code(s): E87.1 - Hypo-osmolality and hyponatremia Status: Acute Assessment and Plan: Sodium currently 131 Monitor serum electrolytes. Sodium upon admission was 131, down trended after surgical intervention and IV fluids. Patient's sodium decreased to 123 on 12/03/2021. Slowly up trending as patient's oral intake has improved. IV fluids discontinued and a sodium bicarb tablet was administered. Nephrology consulted for hyponatremia, appreciate assistance and recommendations Urine studies performed FENa score is 2.2 (4) Ischemic pain of left foot: Code(s): M79.672 - Pain in left foot; I99.8 - Other disorder of circulatory system Status: Chronic Assessment and Plan: Pain medications on board Surgery consulted thank you for your recommendations See above (5) Gangrene of left foot: Code(s): I96 - Gangrene, not elsewhere classified Status: Chronic Assessment and Plan: Multiple areas of noted gangrene Antibiotics on board BKA scheduled 12/02/21 2/2 above (6) Tobacco abuse: Code(s): Z72.0 - Tobacco use Status: Chronic Assessment and Plan: Smoking cessation counseling given for 3 minutes, add nicotine patch daily (7) Hyperlipidemia: Code(s): E78.5 - Hyperlipidemia, unspecified Status: Acute Assessment and Plan: Continue home crestor (8) Afib: Code(s): I48.91 - Unspecified atrial fibrillation Status: Acute Assessment and Plan: Reports tachycardia Continue home Cardizem Trend heart rate (9) D-dimer, elevated: Code(s): R79.89 - Other specified abnorma
--- NOTE | 2021-12-09 10:48 | PM.PNGS ---
Progress Note: A&P Assessment and Plan (1) Status post below-knee amputation of left lower extremity: Code(s): Z89.512 - Acquired absence of left leg below knee Status: Acute Assessment and Plan: Continue routine post-op care, PT/OT. Left BKA stump healing well, stump sock in place and will change tomorrow. Continue to elevate LLE on pillow when at rest. Awaiting insurance approval for [facility] versus SNF for discharge. Additional Plan I have discussed the patient's case and plan of care with Dr. Vasquez. Subjective Subjective Date/Time Seen: 12/09/21 10:48 Post Op day: 7 (Left BKA) Patient reports: no new complaints, tolerating a regular diet, voiding w/o difficulty and afebrile Interval history: Patient sitting up in bed and reportedly doing well. She denies any new complaints. She is not having any pain. She has no complaints with the stump sock applied yesterday. 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 Extrem: Other: Left BKA with stump sock dry and intact Psych: Insight: Good insight present (Psych) Objective Data Vital Signs Vital Signs: Vital Signs - 24 hr 12/08/21 14:00 12/08/21 17:43 12/08/21 20:00 Temperature 97 F L Pulse Rate 66 74 Respiratory Rate 18 18 Blood Pressure 102/54 L Pulse Oximetry 98 95 99 12/08/21 20:52 12/08/21 22:00 12/09/21 06:00 Temperature 98.1 F 97.4 F L Pulse Rate 74 81 Respiratory Rate 18 18 Blood Pressure 126/67 143/79 H Pulse Oximetry 93 99 93 12/09/21 08:44 Temperature Pulse Rate Respiratory Rate Blood Pressure Pulse Oximetry 92 Intake/Output Intake/Output: Intake & Output 12/06/21 12/07/21 12/08/21 12/09/21 23:59 23:59 23:59 23:59 Intake Total 1720 370 713 370 Output Total 200 500 Balance 1520 -130 713 370 Meds/Results Medications: Active Medications Generic Name Dose Route Start Last Admin Trade Name Freq PRN Reason Stop Dose Admin Acetaminophen 650 mg 12/01/21 16:52 Acetaminophen 325 Mg Tablet PO Q4H PRN Mild Pain (1-3) or Fever Hydrocodone Bitart/Acetaminophen 1 tab 12/02/21 15:22 12/08/21 08:21 Hydrocodone/Acetaminophen (*Crx) 7.5-325 Mg Tablet PO 1 tab Q4H PRN Administration Pain Rated 7-10 Al Hydrox/Mg Hydrox/Simethicone 30 ml 12/01/21 16:52 Mag Hydrox/Al Hydrox/Simeth 30 Ml Udc PO QID PRN Dyspepsia Diltiazem HCl 240 mg 12/02/21 09:00 12/09/21 08:23 Diltiazem Hcl Cd 240 Mg Cap.Er.24h PO 240 mg DAILY DANTE Administration Enoxaparin Sodium 30 mg 12/02/21 21:00 12/09/21 08:22 Enoxaparin 30 Mg/0.3 Ml Syringe SUB-Q 30 mg Q12HR DANTE Administration Famotidine 20 mg 12/02/21 21:00 12/09/21 08:23 Famotidine 20 Mg Tablet PO 20 mg Q12HR DANTE Administration Morphine Sulfate 2 mg 12/02/21 15:22 12/06/21 12:41 Morphine Sulfate (*Crx) 2 Mg/Ml Inj IV PUSH 2 mg Q2H PRN Administration Pain Rated 4-6 Morphine Sulfate 4 mg 12/02/21 15:22 Morphine Sulfate (*Crx) 4 Mg/Ml Inj IV PUSH Q2H PRN Pain Rated 7-10 Naloxone HCl 0.1 mg 12/02/21 15:22 Naloxone Hcl 0.4 Mg/Ml Vial IV PUSH Q2M PRN Opiate Reversal Ondansetron HCl 4 mg 12/02/21 15:22 Ondansetron Inj 4 Mg/2 Ml Vial IV PUSH Q4H PRN Nausea And Vomiting Rosuvastatin Calcium 10 mg 12/02/21 09:00 12/09/21 08:23 Rosuvastatin 10 Mg Tablet PO 10 mg DAILY DANTE Administration Sodium Chloride 500 mg 12/04/21 17:00 12/09/21 08:23 Sodium Chloride 500 Mg Tablet PO 500 mg BID DANTE Administration Tobramycin Sulfate 1 drop 12/01/21 17:15 12/09/21 08:23 Tobramycin Sulfate 0.3% Ophth Soln 5 Ml EACH EYE 1 drop Q4HR DANTE Administration Tramadol HCl 50 mg
--- NOTE | 2021-12-09 11:09 | PM.PNNEP ---
Subjective Date/time seen: 12/09/21 11:09 Objective Data Vital Signs Vital Signs: Vital Signs - 24 hr 12/08/21 14:00 12/08/21 17:43 12/08/21 20:00 Temperature 36.1 C L Pulse Rate 66 74 Respiratory Rate 18 18 Blood Pressure 102/54 L Pulse Oximetry 98 95 99 12/08/21 20:52 12/08/21 22:00 12/09/21 06:00 Temperature 36.7 C 36.3 C L Pulse Rate 74 81 Respiratory Rate 18 18 Blood Pressure 126/67 143/79 H Pulse Oximetry 93 99 93 12/09/21 08:44 Temperature Pulse Rate Respiratory Rate Blood Pressure Pulse Oximetry 92 Intake/Output Intake/Output: Intake & Output 12/06/21 12/07/21 12/08/21 12/09/21 23:59 23:59 23:59 23:59 Intake Total 1720 370 713 370 Output Total 200 500 Balance 1520 -130 713 370 Meds/Results Medications: Active Medications Generic Name Dose Route Start Last Admin Trade Name Freq PRN Reason Stop Dose Admin Acetaminophen 650 mg 12/01/21 16:52 Acetaminophen 325 Mg Tablet PO Q4H PRN Mild Pain (1-3) or Fever Hydrocodone Bitart/Acetaminophen 1 tab 12/02/21 15:22 12/08/21 08:21 Hydrocodone/Acetaminophen (*Crx) 7.5-325 Mg Tablet PO 1 tab Q4H PRN Administration Pain Rated 7-10 Al Hydrox/Mg Hydrox/Simethicone 30 ml 12/01/21 16:52 Mag Hydrox/Al Hydrox/Simeth 30 Ml Udc PO QID PRN Dyspepsia Diltiazem HCl 240 mg 12/02/21 09:00 12/09/21 08:23 Diltiazem Hcl Cd 240 Mg Cap.Er.24h PO 240 mg DAILY DANTE Administration Enoxaparin Sodium 30 mg 12/02/21 21:00 12/09/21 08:22 Enoxaparin 30 Mg/0.3 Ml Syringe SUB-Q 30 mg Q12HR DANTE Administration Famotidine 20 mg 12/02/21 21:00 12/09/21 08:23 Famotidine 20 Mg Tablet PO 20 mg Q12HR ADNTE Administration Morphine Sulfate 2 mg 12/02/21 15:22 12/06/21 12:41 Morphine Sulfate (*Crx) 2 Mg/Ml Inj IV PUSH 2 mg Q2H PRN Administration Pain Rated 4-6 Morphine Sulfate 4 mg 12/02/21 15:22 Morphine Sulfate (*Crx) 4 Mg/Ml Inj IV PUSH Q2H PRN Pain Rated 7-10 Naloxone HCl 0.1 mg 12/02/21 15:22 Naloxone Hcl 0.4 Mg/Ml Vial IV PUSH Q2M PRN Opiate Reversal Ondansetron HCl 4 mg 12/02/21 15:22 Ondansetron Inj 4 Mg/2 Ml Vial IV PUSH Q4H PRN Nausea And Vomiting Rosuvastatin Calcium 10 mg 12/02/21 09:00 12/09/21 08:23 Rosuvastatin 10 Mg Tablet PO 10 mg DAILY DANTE Administration Sodium Chloride 500 mg 12/04/21 17:00 12/09/21 08:23 Sodium Chloride 500 Mg Tablet PO 500 mg BID DANTE Administration Tobramycin Sulfate 1 drop 12/01/21 17:15 12/09/21 08:23 Tobramycin Sulfate 0.3% Ophth Soln 5 Ml EACH EYE 1 drop Q4HR DANTE Administration Tramadol HCl 50 mg 12/01/21 16:57 12/06/21 14:18 Tramadol Hcl (*Crx) 50 Mg Tablet PO 50 mg Q6H PRN Administration Pain Rated 4-6 Radiology Results: ITS Impressions Chest CTA 12/04/21 16:32 IMPRESSION: No evidence of pulmonary embolus Emphysema Bilateral upper and to a greater extent lower lobe dependent atelectasis/infiltrate Cardiomegaly, coronary atherosclerosis Chest X-Ray 12/09/21 06:40 IMPRESSION: 1. Mild atelectasis at the lung bases. Labs Labs: Laboratory Results - last 24 hr 12/09/21 12/09/21 05:45 05:45 WBC 8.4 RBC 3.40 L Hgb 9.7 L Hct 31.4 L MCV 92.4 MCH 28.5 MCHC 30.9 L RDW 13.5 Plt Count 334 MPV 9.8 Immature Gran % (Auto) 0.8 H Neut % (Auto) 59.6 Lymph % (Auto) 24.1 [place] % (Auto) 11.0 H Eos % (Auto) 3.8 Baso % (Auto) 0.7 Lymph # (Auto) 2.03 [place] # (Auto) 0.9 H Eos # (Auto) 0.3 Baso # (Auto) 0.1 Abs Immat Gran (auto) 0.07 H Absolute Neuts (auto) 5.0 Absolute Nucleated RBC 0.0 Nucleated RBC % 0.0 Sodium 131 L Potassium 3.6 Chloride 97 L Carbon Dioxide 29 Anion Gap 5 L BUN 8 Creatinine 0.80 Estim Creat Clear Calc 39 Estimated GFR > 60 Glucose 95 Calcium 8.1 L Phosphorus 3.2 Magnesium 1.8 Total Bilirubin
--- NOTE | 2021-12-09 11:27 | PC.NURSE ---
Status report called to pts son.
--- NOTE | 2021-12-09 11:31 | P.PNNP_ITS ---
Progress Note: A&P Assessment and Plan (1) Hyponatremia: Code(s): E87.1 - Hypo-osmolality and hyponatremia Status: Acute Assessment and Plan: * possibly acute on chronic -- sodium 131mmol/L on admission * possibly from underlying smoking history/lung disease * urine electrolytes non-prerenal * TSH and cortisol okay; SPEP and UPEP pending * CT chest is negative for cancer * she has no history of cancer. * No history of brain tumor or stroke. * It is unclear whether she had hyponatremia before she came in are not. Can try to get records from her primary care physician. * Etiology of current hyponatremia is probably related to her medical illness, Pulmonary disease, water drinking with poor p.o. intake, narcotics, and hydration status. * sodium 131 today.check in am (2) Non-healing wound of left lower extremity: Code(s): S81.802A - Unspecified open wound, left lower leg, initial encounter Status: Chronic Assessment and Plan: * wound present for almost a month * complicated by ischemic pain as well as gangrene * s/p left BKA on 12/02/21 by Surgery (3) Acute respiratory failure: Code(s): J96.00 - Acute respiratory failure, unspecified whether with hypoxia or hypercapnia Status: Acute Assessment and Plan: * events noted on 12/04/21 with noted imaging * presumed to be post-op atelectasis * incentive spiromery * breathing okay right now. (4) Hypertension: Code(s): I10 - Essential (primary) hypertension Status: Acute Assessment and Plan: * well controlled * follow trend of hemodynamics (5) Afib: Code(s): I48.91 - Unspecified atrial fibrillation Status: Acute Assessment and Plan: * heart rate is 60s and 70s * anticoagulation(?) Subjective Date/time seen: 12/10/21 05:31 Interval history: Carmen is feeling better today. sitting up in a chair. no cp or sob Working with PTx Exam Narrative: General: WD/WN elderly AA female in NAD Heart: normal S1 and S2; no rub Lungs: clear to auscultation Abdomen: soft, nontender, nondistended, positive bowel sounds Extremities: no cyanosis or clubbing; no edema; s/p left BKA. Bandage on. Skin: No rash Objective Data Vital Signs Vital Signs: Vital Signs - 24 hr 12/09/21 06:00 12/09/21 08:00 12/09/21 08:44 Temperature 36.3 C L Pulse Rate 81 81 Respiratory Rate 18 18 Blood Pressure 143/79 H Pulse Oximetry 93 92 92 12/09/21 13:33 12/09/21 20:00 12/09/21 21:50 Temperature 36.3 C L 37.2 C Pulse Rate 72 81 81 Respiratory Rate 18 16 16 Blood Pressure 102/62 146/79 H Pulse Oximetry 94 92 92 12/10/21 05:29 Temperature 36.9 C Pulse Rate 76 Respiratory Rate 16 Blood Pressure 112/63 Pulse Oximetry 92 Intake/Output Intake/Output: Intake & Output 12/07/21 12/08/21 12/09/21 12/10/21 23:59 23:59 23:59 23:59 Intake Total 376 691 4668 500 Output Total 500 Balance -804 728 8501 500 Meds/Results Medications: Active Medications Generic Name Dose Route Start Last Admin Trade Name Zuleyma PRN Reason Stop Dose Admin Acetaminophen 650 mg 12/01
--- NOTE | 2021-12-09 11:31 | PM.PNNEP ---
Progress Note: A&P Assessment and Plan (1) Hyponatremia: Code(s): E87.1 - Hypo-osmolality and hyponatremia Status: Acute Assessment and Plan: possibly acute on chronic -- sodium 131mmol/L on admission possibly from underlying smoking history/lung disease urine electrolytes non-prerenal TSH and cortisol okay; SPEP and UPEP pending CT chest is negative for cancer she has no history of cancer. No history of brain tumor or stroke. It is unclear whether she had hyponatremia before she came in are not. Can try to get records from her primary care physician. Etiology of current hyponatremia is probably related to her medical illness, Pulmonary disease, water drinking with poor p.o. intake, narcotics, and hydration status. sodium 131 today.check in am (2) Non-healing wound of left lower extremity: Code(s): S81.802A - Unspecified open wound, left lower leg, initial encounter Status: Chronic Assessment and Plan: wound present for almost a month complicated by ischemic pain as well as gangrene s/p left BKA on 12/02/21 by Surgery (3) Acute respiratory failure: Code(s): J96.00 - Acute respiratory failure, unspecified whether with hypoxia or hypercapnia Status: Acute Assessment and Plan: events noted on 12/04/21 with noted imaging presumed to be post-op atelectasis incentive spiromery breathing okay right now. (4) Hypertension: Code(s): I10 - Essential (primary) hypertension Status: Acute Assessment and Plan: well controlled follow trend of hemodynamics (5) Afib: Code(s): I48.91 - Unspecified atrial fibrillation Status: Acute Assessment and Plan: heart rate is 60s and 70s anticoagulation(?) Subjective Date/time seen: 12/10/21 05:31 Interval history: Carmen is feeling better today. sitting up in a chair. no cp or sob Working with PTx Exam Narrative: General: WD/WN elderly AA female in NAD Heart: normal S1 and S2; no rub Lungs: clear to auscultation Abdomen: soft, nontender, nondistended, positive bowel sounds Extremities: no cyanosis or clubbing; no edema; s/p left BKA. Bandage on. Skin: No rash Objective Data Vital Signs Vital Signs: Vital Signs - 24 hr 12/09/21 06:00 12/09/21 08:00 12/09/21 08:44 Temperature 36.3 C L Pulse Rate 81 81 Respiratory Rate 18 18 Blood Pressure 143/79 H Pulse Oximetry 93 92 92 12/09/21 13:33 12/09/21 20:00 12/09/21 21:50 Temperature 36.3 C L 37.2 C Pulse Rate 72 81 81 Respiratory Rate 18 16 16 Blood Pressure 102/62 146/79 H Pulse Oximetry 94 92 92 12/10/21 05:29 Temperature 36.9 C Pulse Rate 76 Respiratory Rate 16 Blood Pressure 112/63 Pulse Oximetry 92 Intake/Output Intake/Output: Intake & Output 12/07/21 12/08/21 12/09/21 12/10/21 23:59 23:59 23:59 23:59 Intake Total 551 288 2693 500 Output Total 500 Balance -738 655 8975 500 Meds/Results Medications: Active Medications Generic Name Dose Route Start Last Admin Trade Name Freq PRN Reason Stop Dose Admin Acetaminophen 650 mg 12/01/21 16:52 Acetaminophen 325 Mg Tablet PO Q4H PRN Mild Pain (1-3) or Fever Hydrocodone Bitart/Acetaminophen 1 tab 12/02/21 15:22 12/08/21 08:21 Hydrocodone/Acetaminophen (*Crx) 7.5-325 Mg Tablet PO 1 tab Q4H PRN Administration Pain Rated 7-10 Al Hydrox/Mg Hydrox/Simethicone 30 ml 12/01/21 16:52 Mag Hydrox/Al Hydrox/Simeth 30 Ml Udc PO QID PRN Dyspepsia Diltiazem HCl 240 mg 12/02/21 09:00 12/09/21 08:23 Diltiazem Hcl Cd 240 Mg Cap.Er.24h PO 240 mg DAILY DANTE Administration Enoxaparin Sodium 30 mg 12/02/21 21:00 12/09/21 21:55 Enoxaparin 30 Mg/0.3 Ml Syringe SUB-Q 30 mg Q12HR DANTE Administration Famotidine 20 mg 12/02/21 21:00 12/09/21 21:55 Famotidine 20 Mg Tablet PO 20 mg Q12HR DANTE Administration Morphine Sulfate 2 mg 12/02/21
[2021-12-09] MEDS: MAGNESIUM SULF 2 GM/WATER 50ML 2 GM/50 ML BAG IVPB (12:04)
[2021-12-09 13:33] VITALS: BP 102/62; PULSE 72; RESP 18; TEMP 36.3; O2SAT 94
[2021-12-09 20:00] VITALS: PULSE 81; RESP 16; O2SAT 92
[2021-12-09 21:50] VITALS: BP 146/79; PULSE 81; RESP 16; TEMP 37.2; O2SAT 92
[2021-12-10 05:29] VITALS: BP 112/63; PULSE 76; RESP 16; TEMP 36.9; O2SAT 92
[2021-12-10 06:48] LABS: Basophils Absolute Auto 0.1 K/mm3 (0.0-0.1); Basophils Percent Auto 0.6 % (0.2-1.2); Eosinophils Absolute Auto 0.3 K/mm3 (0-0.3); Eosinophils Percent Auto 3.9 % (0-4.4); Hematocrit 29.5 % (37.0-47.0); Hemoglobin 9.2 g/dL (12.0-15.0); Immature Granulocyte Absolute 0.07 K/mm3 (0.00-0.031); Immature Granulocyte Percent A 0.8 % (0-0.5); Lymphocytes Absolute Auto 2.02 K/mm3 (0.9-3.2); Mean Corpuscular HGB Conc 31.2 g/dl (32-36); Mean Corpuscular Hemoglobin 28.8 pg (26-34); Mean Corpuscular Volume 92.2 fl (80-100); Mean Platelet Volume 9.8 fl (7.4-10.4); Neutrophils Absolute Auto 4.9 K/mm3 (1.3-6.7); Neutrophils Percent Auto 58.7 % (45.5-73.1); Platelet Count Result 325 k/mm3 (150-375); Red Cell Distribution Width 13.8 % (11.5-14.5); White Blood Count 8.4 K/mm3 (4.5-10.0)
[2021-12-10 07:01] LABS: Alanine Aminotransferase 16 U/L (4-35); Alkaline Phosphatase 71 U/L (38-126); Anion Gap 4 mmol/L (8-16); Aspartate Amino Transferase 49 U/L (14-36); Bilirubin,Total 0.5 mg/dL (0.2-1.3); Blood Urea Nitrogen 9 mg/dL (7-17); Calcium 8.1 mg/dL (8.4-10.2); Carbon Dioxide 28 mmol/L (22-30); Chloride 98 mmol/L (98-107); Estimated CRCL calculation 39 ml/min; Estimated Glomerular Filt Rate > 60; Glucose 107 mg/dL (65-110); Magnesium 2.2 mg/dL (1.6-2.3); Potassium 3.5 mmol/L (3.4-5.0); Sodium 130 mmol/L (137-145)
[2021-12-10 08:00] VITALS: PULSE 81; RESP 22; O2SAT 92
[2021-12-10] MEDS: SODIUM CHLORIDE 500 MG TABLET PO ×2 (08:51→17:45)
[2021-12-10] MEDS: FAMOTIDINE 20 MG TABLET PO ×2 (08:51→20:50)
[2021-12-10] MEDS: ROSUVASTATIN 10 MG TABLET PO (08:52)
[2021-12-10] MEDS: ENOXAPARIN 30 MG/0.3 ML SYRINGE SUB-Q ×2 (08:55→20:50)
[2021-12-10] MEDS: TOBRAMYCIN SULFATE 0.3% OPHTH SOLN 5 ML 1 DROP EACH EYE ×5 (08:59→20:50)
[2021-12-10 09:00] VITALS: BP 118/58; PULSE 81; RESP 22; TEMP 36.4; O2SAT 92
--- NOTE | 2021-12-10 13:55 | PC.NURSE ---
On 12/10/21, the student, Alejandrina Hagan, provided care and completed [facility] documentation on this patient. I have reviewed the student's documentation and agree with the findings.
[2021-12-10 14:00] VITALS: BP 105/65; PULSE 73; RESP 21; TEMP 36.1; O2SAT 92
--- NOTE | 2021-12-10 15:55 | P.PNNP_ITS ---
Progress Note: A&P Assessment and Plan (1) Hyponatremia: Code(s): E87.1 - Hypo-osmolality and hyponatremia Status: Acute Assessment and Plan: * possibly acute on chronic -- sodium 131mmol/L on admission * possibly from underlying smoking history/lung disease * urine electrolytes non-prerenal * TSH and cortisol okay; SPEP and UPEP pending * CT chest is negative for cancer * she has no history of cancer. * No history of brain tumor or stroke. * It is unclear whether she had hyponatremia before she came in are not. Can try to get records from her primary care physician. * Etiology of current hyponatremia is probably related to her medical illness, Pulmonary disease, water drinking with poor p.o. intake, narcotics, and hydration status. * sodium 130 today.check in am * remainder of evaluation can happen as an outpatient. (2) Non-healing wound of left lower extremity: Code(s): S81.802A - Unspecified open wound, left lower leg, initial encounter Status: Chronic Assessment and Plan: * wound present for almost a month * complicated by ischemic pain as well as gangrene * s/p left BKA on 12/02/21 by Surgery (3) Acute respiratory failure: Code(s): J96.00 - Acute respiratory failure, unspecified whether with hypoxia or hypercapnia Status: Acute Assessment and Plan: * events noted on 12/04/21 with noted imaging * presumed to be post-op atelectasis * incentive spiromery * breathing okay right now. (4) Hypertension: Code(s): I10 - Essential (primary) hypertension Status: Acute Assessment and Plan: * well controlled * follow trend of hemodynamics (5) Afib: Code(s): I48.91 - Unspecified atrial fibrillation Status: Acute Assessment and Plan: * heart rate is 60s and 70s Subjective Date/time seen: 12/10/21 15:55 Interval history: Carmen is feeling better today. sitting up in a chair. No chest pain or shortness of breath Exam Narrative: General: WD/WN elderly AA female in NAD Heart: normal S1 and S2; no rub or gallop Lungs: clear to auscultation Abdomen: soft, nontender, nondistended, positive bowel sounds Extremities: no cyanosis or clubbing; no edema; s/p left BKA. Bandage on. Skin: No rash or subcu nodules Objective Data Vital Signs Vital Signs: Vital Signs - 24 hr 12/09/21 20:00 12/09/21 21:50 12/10/21 05:29 Temperature 37.2 C 36.9 C Pulse Rate 81 81 76 Respiratory Rate 16 16 16 Blood Pressure 146/79 H 112/63 Pulse Oximetry 92 92 92 12/10/21 08:00 12/10/21 09:00 12/10/21 14:00 Temperature 36.4 C 36.1 C L Pulse Rate 81 81 73 Respiratory Rate 22 H 22 H 21 H Blood Pressure 118/58 L 105/65 Pulse Oximetry 92 92 92 Intake/Output Intake/Output: Intake & Output 12/07/21 12/08/21 12/09/21 12/10/21 23:59 23:59 23:59 23:59 Intake Total 404 606 6918 977 Output Total 500 450 Balance -574 618 2838 527 Meds/Results Medications: Active Medications Generic Name Dose Route Start Last Admin Trade Name Freq PRN Reason Stop Dose Admin Acetaminophen 650 mg 12/01/21 16:52 Acetaminophen 325 Mg Tablet PO Q4H PRN Mild Pain (1-3) or Fe
--- NOTE | 2021-12-10 15:55 | PM.PNNEP ---
Progress Note: A&P Assessment and Plan (1) Hyponatremia: Code(s): E87.1 - Hypo-osmolality and hyponatremia Status: Acute Assessment and Plan: possibly acute on chronic -- sodium 131mmol/L on admission possibly from underlying smoking history/lung disease urine electrolytes non-prerenal TSH and cortisol okay; SPEP and UPEP pending CT chest is negative for cancer she has no history of cancer. No history of brain tumor or stroke. It is unclear whether she had hyponatremia before she came in are not. Can try to get records from her primary care physician. Etiology of current hyponatremia is probably related to her medical illness, Pulmonary disease, water drinking with poor p.o. intake, narcotics, and hydration status. sodium 130 today.check in am remainder of evaluation can happen as an outpatient. 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 (4) Hypertension: Code(s): I10 - Essential (primary) hypertension Status: Acute Assessment and Plan: well controlled follow trend of hemodynamics (5) Afib: Code(s): I48.91 - Unspecified atrial fibrillation Status: Acute Assessment and Plan: heart rate is 60s and 70s Subjective Date/time seen: 12/10/21 15:55 Interval history: Carmen is feeling better today. sitting up in a chair. No chest pain or shortness of breath Exam Narrative: General: WD/WN elderly AA female in NAD Heart: normal S1 and S2; no rub or gallop Lungs: clear to auscultation Abdomen: soft, nontender, nondistended, positive bowel sounds Extremities: no cyanosis or clubbing; no edema; s/p left BKA. Bandage on. Skin: No rash or subcu nodules Objective Data Vital Signs Vital Signs: Vital Signs - 24 hr 12/09/21 20:00 12/09/21 21:50 12/10/21 05:29 Temperature 37.2 C 36.9 C Pulse Rate 81 81 76 Respiratory Rate 16 16 16 Blood Pressure 146/79 H 112/63 Pulse Oximetry 92 92 92 12/10/21 08:00 12/10/21 09:00 12/10/21 14:00 Temperature 36.4 C 36.1 C L Pulse Rate 81 81 73 Respiratory Rate 22 H 22 H 21 H Blood Pressure 118/58 L 105/65 Pulse Oximetry 92 92 92 Intake/Output Intake/Output: Intake & Output 12/07/21 12/08/21 12/09/21 12/10/21 23:59 23:59 23:59 23:59 Intake Total 566 901 5004 977 Output Total 500 450 Balance -216 132 0578 527 Meds/Results Medications: Active Medications Generic Name Dose Route Start Last Admin Trade Name Freq PRN Reason Stop Dose Admin Acetaminophen 650 mg 12/01/21 16:52 Acetaminophen 325 Mg Tablet PO Q4H PRN Mild Pain (1-3) or Fever Hydrocodone Bitart/Acetaminophen 1 tab 12/02/21 15:22 12/08/21 08:21 Hydrocodone/Acetaminophen (*Crx) 7.5-325 Mg Tablet PO 1 tab Q4H PRN Administration Pain Rated 7-10 Al Hydrox/Mg Hydrox/Simethicone 30 ml 12/01/21 16:52 Mag Hydrox/Al Hydrox/Simeth 30 Ml Udc PO QID PRN Dyspepsia Diltiazem HCl 240 mg 12/02/21 09:00 12/10/21 08:51 Diltiazem Hcl Cd 240 Mg Cap.Er.24h PO 240 mg DAILY DANTE Administration Enoxaparin Sodium 30 mg 12/02/21 21:00 12/10/21 08:55 Enoxaparin 30 Mg/0.3 Ml Syringe SUB-Q 30 mg Q12HR DANTE Administration Famotidine 20 mg 12/02/21 21:00 12/10/21 08:51 Famotidine 20 Mg Tablet PO 20 mg Q12HR DANTE Administration Morphine Sulfate 2 mg 12/02/21 15:22 12/06/21 12:41
[2021-12-10 16:05] VITALS: O2SAT 93
--- NOTE | 2021-12-10 16:21 | PM.PNGS ---
Progress Note: A&P Assessment and Plan (1) Status post below-knee amputation of left lower extremity: Code(s): Z89.512 - Acquired absence of left leg below knee Status: Acute Assessment and Plan: Continue routine post-op care, PT/OT. Left BKA stump healing well, continue using stump sock. She is tolerating her diet, but is constipated. Will try stimulating her bowels. Medically stable for discharge once we have an answer from her insurance on the appeal for [facility] -- if declined, then will likely go to a SNF. Additional Plan I have discussed the patient's case with Dr. Vasquez. Subjective Subjective Date/Time Seen: 12/10/21 16:21 Post Op day: 8 Patient reports: tolerating a regular diet, flatus, no bowel movement and afebrile Interval history: Patient seen and examined. Reports working with therapy well today and has no complaints. Denies any pain and no issues with the stump sock. She is tolerating a diet well without any nausea, vomiting, or bloating. She does report constipation and states she has not had a BM yet since surgery. No other complaints at this time. Review of Systems Review of Systems: All systems reviewed & are unremarkable except as noted in HPI and below Cardiovascular: Cardiovascular: Reports no additional cardiovascular complaints and Denies chest pain Respiratory: Respiratory: Reports no additional respiratory complaints, Denies cough and Denies dyspnea Gastrointestinal: Gastrointestinal: Reports as per HPI and Reports no additional gastrointestinal complaints Exam Const: General: no acute distress and awake Orientation/consciousness: patient oriented x3 GI: Inspection: non-distended GI Palp: Yes Soft to palpation and No Tenderness to palpation present (GI) Auscultation: normal bowel sounds Extrem: Other: Left BKA stump sock and gauze dressing removed. Incision healing well without scant amount of serosanguineous drainage on medial edge of incision, but no erythema or warmth, skin well approximated and viable. Swelling slightly improved. Reapplied clean gauze and sump sock. Psych: Insight: Good insight present (Psych) Judgement: Good judgement present (Psych) Objective Data Vital Signs Vital Signs: Vital Signs - 24 hr 12/09/21 20:00 12/09/21 21:50 12/10/21 05:29 Temperature 99.0 F 98.4 F Pulse Rate 81 81 76 Respiratory Rate 16 16 16 Blood Pressure 146/79 H 112/63 Pulse Oximetry 92 92 92 12/10/21 08:00 12/10/21 09:00 12/10/21 14:00 Temperature 97.6 F 97 F L Pulse Rate 81 81 73 Respiratory Rate 22 H 22 H 21 H Blood Pressure 118/58 L 105/65 Pulse Oximetry 92 92 92 12/10/21 16:05 Temperature Pulse Rate Respiratory Rate Blood Pressure Pulse Oximetry 93 Intake/Output Intake/Output: Intake & Output 12/07/21 12/08/21 12/09/21 12/10/21 23:59 23:59 23:59 23:59 Intake Total 173 659 3975 977 Output Total 500 450 Balance -400 446 5287 527 Meds/Results Medications: Active Medications Generic Name Dose Route Start Last Admin Trade Name Freq PRN Reason Stop Dose Admin Acetaminophen 650 mg 12/01/21 16:52 Acetaminophen 325 Mg Tablet PO Q4H PRN Mild Pain (1-3) or Fever Hydrocodone Bitart/Acetaminophen 1 tab 12/02/21 15:22 12/08/21 08:21 Hydrocodone/Acetaminophen (*Crx) 7.5-325 Mg Tablet PO 1 tab Q4H PRN Administration Pain Rated 7-10 Al Hydrox/Mg Hydrox/Simethicone 30 ml 12/01/21 16:52 Mag Hydrox/Al Hydrox/Simeth 30 Ml Udc PO QID PRN Dyspepsia Diltiazem HCl 240 mg 12/02/21 09:00 12/10/21 08:51 Diltiazem Hcl Cd 240 Mg Cap.Er.24h PO 240 mg DAILY DANTE Administration Enoxaparin Sodium 30 mg 12/02/21 21:00 12/10/21 08:55 Enoxaparin 30 Mg/0.3 Ml Syringe SUB-Q 30 mg Q12HR DANTE Administration Famotidine 20 mg 12/02/21 21:00 12/10/21 08:51 Famotidine 20 Mg Tablet PO 20 mg Q12HR DANTE Administration Morphine Sulfate 2 mg 12/02/21 15:22 12/06/21 12:41 Morphine Sulfate (*C
[2021-12-10 17:18] LABS: Albumin 2.5 g/dL (3.8-4.8); Alpha 1 Globulin 0.6 g/dL (0.2-0.3); Beta 1 Globulin 0.4 g/dL (0.4-0.6); Gamma Globulin 1.3 g/dL (0.8-1.7); Protein, Total 6.1 g/dL (6.1-8.1)
[2021-12-10] MEDS: polyethylene glycoL 3350 17 GM POWD.PACK PO (17:45)
[2021-12-10 22:00] VITALS: BP 113/56; PULSE 88; RESP 16; TEMP 37.1; O2SAT 91
[2021-12-11 05:46] VITALS: BP 119/65; PULSE 68; RESP 16; TEMP 36.1; O2SAT 96
[2021-12-11 06:02] LABS: Basophils Absolute Auto 0.1 K/mm3 (0.0-0.1); Basophils Percent Auto 0.9 % (0.2-1.2); Eosinophils Absolute Auto 0.3 K/mm3 (0-0.3); Eosinophils Percent Auto 4.2 % (0-4.4); Hematocrit 28.3 % (37.0-47.0); Hemoglobin 8.9 g/dL (12.0-15.0); Immature Granulocyte Absolute 0.08 K/mm3 (0.00-0.031); Lymphocytes Absolute Auto 2.68 K/mm3 (0.9-3.2); Lymphocytes Percent Auto 32.8 % (18.3-44.2); Mean Corpuscular HGB Conc 31.4 g/dl (32-36); Mean Corpuscular Hemoglobin 28.6 pg (26-34); Mean Platelet Volume 9.7 fl (7.4-10.4); Monocytes Percent Auto 11.7 % (2.6-8.5); Neutrophils Absolute Auto 4.1 K/mm3 (1.3-6.7); Neutrophils Percent Auto 49.4 % (45.5-73.1); Platelet Count Result 311 k/mm3 (150-375); Red Blood Count 3.11 M/mm3 (4.2-5.4); Red Cell Distribution Width 13.8 % (11.5-14.5); White Blood Count 8.2 K/mm3 (4.5-10.0)
[2021-12-11 06:21] LABS: Alanine Aminotransferase 22 U/L (4-35); Albumin Level 2.9 g/dL (3.5-5.1); Alkaline Phosphatase 76 U/L (38-126); Anion Gap 4 mmol/L (8-16); Aspartate Amino Transferase 53 U/L (14-36); Bilirubin,Total 0.4 mg/dL (0.2-1.3); Blood Urea Nitrogen 10 mg/dL (7-17); Carbon Dioxide 27 mmol/L (22-30); Chloride 101 mmol/L (98-107); Estimated CRCL calculation 35 ml/min; Estimated Glomerular Filt Rate > 60; Glucose 100 mg/dL (65-110); Potassium 3.9 mmol/L (3.4-5.0); Sodium 132 mmol/L (137-145)
--- NOTE | 2021-12-11 06:48 | P.PNIM_ITS ---
Progress Note: A&P Assessment and Plan (1) Non-healing wound of left lower extremity: Code(s): S81.802A - Unspecified open wound, left lower leg, initial encounter Status: Chronic Assessment and Plan: * Reported 1 month of non-healing foot wound * General surgery consult appreciate his recommendation. Surgical procedure performed on 12/02/2021. A below the knee amputation was performed * IV pain management with morphine and oral pain management with tramadol * Cefazolin 2gm Q8Hr, consider deescalation, DC'D at this time * Post op care per general surgery * Low fiber diet * PT/OT continues * Case management consult for further management of the patient's placement needs to a skilled facility * peer to peer was performed and the patient had been accepted with her insurance company for skilled therapy, 2 hours daily and monitoring serial labs. * It seems the appeal has been approved (2) Acute respiratory failure: Code(s): J96.00 - Acute respiratory failure, unspecified whether with hypoxia or hypercapnia Status: Acute Assessment and Plan: * Will not need oxygen evaluation, as she will be going to facility * Repeat ABGs showed improvement on 12/05/2021, patient is currently on 0-2L oxygen NC, 95% on room air * repeat chest xray Mild atelectasis at the lung bases * Events On 12/04/21 Patient is unable to complete full sentences and is tripoding.--Patient is noted to be tachypneic with an O2 saturation of 84. ABGs reviewed from 12/04/2021. Patient did have a pH of 7.511, pO2 55.1 and pCO2 35.6, bicarb 27.8 * 12/04/2021 Chest x-ray shows pulmonary vascular congestion without pulmonary edema with a new mild bibasilar opacity which could represent atelectasis or pneumonia * D-dimer mildly elevated at 1.52, possibly due to his recent surgery and illness/gangrenous foot * CTA negative for pulmonary embolism, did result in findings of bilateral atelectasis versus pneumonia. Given the patient's clinical picture today and no leukocytosis with recent surgery, suggestive of bilateral atelectasis. Will encourage patient to do incentive spirometry * Continue to trend respiratory status (3) Hyponatremia: Code(s): E87.1 - Hypo-osmolality and hyponatremia Status: Acute Assessment and Plan: * Sodium currently 130 * Monitor serum electrolytes. Sodium upon admission was 131, down trended after surgical intervention and IV fluids. Patient's sodium decreased to 123 on 12/03/2021. Slowly up trending as patient's oral intake has improved. IV fluids discontinued and a sodium bicarb tablet was administered. * Nephrology consulted for hyponatremia, appreciate assistance and recommendations * Urine studies performed * FENa score is 2.2 (4) Ischemic pain of left foot: Code(s): M79.672 - Pain in left foot; I99.8 - Other disorder of circulatory system Status: Chronic Assessment and Plan: * Pain medications on board * Surgery consulted thank you for your recommendations * See above (5) Gangrene of left foot: Code(s): I96 - Gangrene, not elsewhere classified Status: Chronic Assessment and Plan: * Multiple areas of noted gangrene * Antibiotics on board * BKA scheduled 12/02/21 * 2/2 above (6) Tobacco abuse: Code(s): Z72.0 - Tobacco use Status: Chronic Assessment and Plan: * Smoking cessation counseling given for 3 minutes, add nicotine patch daily
--- NOTE | 2021-12-11 06:48 | PM.IMPN ---
Progress Note: A&P Assessment and Plan (1) Non-healing wound of left lower extremity: Code(s): S81.802A - Unspecified open wound, left lower leg, initial encounter Status: Chronic Assessment and Plan: Reported 1 month of non-healing foot wound General surgery consult appreciate his recommendation. Surgical procedure performed on 12/02/2021. A below the knee amputation was performed IV pain management with morphine and oral pain management with tramadol Cefazolin 2gm Q8Hr, consider deescalation, DC'D at this time Post op care per general surgery Low fiber diet PT/OT continues Case management consult for further management of the patient's placement needs to a skilled facility peer to peer was performed and the patient had been accepted with her insurance company for skilled therapy, 2 hours daily and monitoring serial labs. It seems the appeal has been approved (2) Acute respiratory failure: Code(s): J96.00 - Acute respiratory failure, unspecified whether with hypoxia or hypercapnia Status: Acute Assessment and Plan: Will not need oxygen evaluation, as she will be going to facility Repeat ABGs showed improvement on 12/05/2021, patient is currently on 0-2L oxygen NC, 95% on room air repeat chest xray Mild atelectasis at the lung bases Events On 12/04/21 Patient is unable to complete full sentences and is tripoding.--Patient is noted to be tachypneic with an O2 saturation of 84. ABGs reviewed from 12/04/2021. Patient did have a pH of 7.511, pO2 55.1 and pCO2 35.6, bicarb 27.8 12/04/2021 Chest x-ray shows pulmonary vascular congestion without pulmonary edema with a new mild bibasilar opacity which could represent atelectasis or pneumonia D-dimer mildly elevated at 1.52, possibly due to his recent surgery and illness/gangrenous foot CTA negative for pulmonary embolism, did result in findings of bilateral atelectasis versus pneumonia. Given the patient's clinical picture today and no leukocytosis with recent surgery, suggestive of bilateral atelectasis. Will encourage patient to do incentive spirometry Continue to trend respiratory status (3) Hyponatremia: Code(s): E87.1 - Hypo-osmolality and hyponatremia Status: Acute Assessment and Plan: Sodium currently 130 Monitor serum electrolytes. Sodium upon admission was 131, down trended after surgical intervention and IV fluids. Patient's sodium decreased to 123 on 12/03/2021. Slowly up trending as patient's oral intake has improved. IV fluids discontinued and a sodium bicarb tablet was administered. Nephrology consulted for hyponatremia, appreciate assistance and recommendations Urine studies performed FENa score is 2.2 (4) Ischemic pain of left foot: Code(s): M79.672 - Pain in left foot; I99.8 - Other disorder of circulatory system Status: Chronic Assessment and Plan: Pain medications on board Surgery consulted thank you for your recommendations See above (5) Gangrene of left foot: Code(s): I96 - Gangrene, not elsewhere classified Status: Chronic Assessment and Plan: Multiple areas of noted gangrene Antibiotics on board BKA scheduled 12/02/21 2/ above (6) Tobacco abuse: Code(s): Z72.0 - Tobacco use Status: Chronic Assessment and Plan: Smoking cessation counseling given for 3 minutes, add nicotine patch daily (7) Hyperlipidemia: Code(s): E78.5 - Hyperlipidemia, unspecified Status: Acute Assessment and Plan: Continue home crestor (8) Afib: Code(s): I48.91 - Unspecified atrial fibrillation Status: Acute Assessment and Plan: Reports tachycardia Continue home Cardizem Trend heart rate (9) D-dimer, elevated: Code(s): R79.89 - Other specified abnormal findings of blood chemistry Status: Acute As
[2021-12-11] MEDS: ENOXAPARIN 30 MG/0.3 ML SYRINGE SUB-Q (09:08)
[2021-12-11] MEDS: polyethylene glycoL 3350 17 GM POWD.PACK PO (09:08)
[2021-12-11] MEDS: SODIUM CHLORIDE 500 MG TABLET PO (09:08)
[2021-12-11] MEDS: ROSUVASTATIN 10 MG TABLET PO (09:08)
[2021-12-11] MEDS: FAMOTIDINE 20 MG TABLET PO (09:09)
[2021-12-11] MEDS: TOBRAMYCIN SULFATE 0.3% OPHTH SOLN 5 ML 1 DROP EACH EYE ×2 (09:09→14:43)
--- NOTE | 2021-12-11 10:30 | PM.DS ---
DS: Admitting Diagnosis Discharge Date 12/11/21 1030 Admitting Diagnosis Gangrene of the left lower leg/Status post BKA DS: Discharge Diagnosis Discharge Diagnosis (1) Non-healing wound of left lower extremity: Code(s): S81.802A - Unspecified open wound, left lower leg, initial encounter Status: Chronic Assessment and Plan: Reported 1 month of non-healing foot wound General surgery consult appreciate his recommendation. Surgical procedure performed on 12/02/2021. A below the knee amputation was performed IV pain management with morphine and oral pain management with tramadol Cefazolin 2gm Q8Hr, consider deescalation, DC'D at this time Post op care per general surgery Low fiber diet PT/OT continues Case management consult for further management of the patient's placement needs to a skilled facility peer to peer was performed and the patient had been accepted with her insurance company for skilled therapy, 2 hours daily and monitoring serial labs. (2) Acute respiratory failure: Code(s): J96.00 - Acute respiratory failure, unspecified whether with hypoxia or hypercapnia Status: Acute Assessment and Plan: Will not need oxygen evaluation, as she will be going to facility Repeat ABGs showed improvement on 12/05/2021, patient is currently on 0-2L oxygen NC, 95% on room air repeat chest xray Mild atelectasis at the lung bases Events On 12/04/21 Patient is unable to complete full sentences and is tripoding.--Patient is noted to be tachypneic with an O2 saturation of 84. ABGs reviewed from 12/04/2021. Patient did have a pH of 7.511, pO2 55.1 and pCO2 35.6, bicarb 27.8 12/04/2021 Chest x-ray shows pulmonary vascular congestion without pulmonary edema with a new mild bibasilar opacity which could represent atelectasis or pneumonia D-dimer mildly elevated at 1.52, possibly due to his recent surgery and illness/gangrenous foot CTA negative for pulmonary embolism, did result in findings of bilateral atelectasis versus pneumonia. Given the patient's clinical picture today and no leukocytosis with recent surgery, suggestive of bilateral atelectasis. Will encourage patient to do incentive spirometry Continue to trend respiratory status (3) Hyponatremia: Code(s): E87.1 - Hypo-osmolality and hyponatremia Status: Acute Assessment and Plan: Sodium currently 130 Monitor serum electrolytes. Sodium upon admission was 131, down trended after surgical intervention and IV fluids. Patient's sodium decreased to 123 on 12/03/2021. Slowly up trending as patient's oral intake has improved. IV fluids discontinued and a sodium bicarb tablet was administered. Nephrology consulted for hyponatremia, appreciate assistance and recommendations Urine studies performed FENa score is 2.2 (4) Ischemic pain of left foot: Code(s): M79.672 - Pain in left foot; I99.8 - Other disorder of circulatory system Status: Chronic Assessment and Plan: Pain medications on board Surgery consulted thank you for your recommendations See above (5) Gangrene of left foot: Code(s): I96 - Gangrene, not elsewhere classified Status: Chronic Assessment and Plan: Multiple areas of noted gangrene Antibiotics on board BKA scheduled 12/02/21 2/2 above (6) Tobacco abuse: Code(s): Z72.0 - Tobacco use Status: Chronic Assessment and Plan: Smoking cessation counseling given for 3 minutes, add nicotine patch daily (7) Hyperlipidemia: Code(s): E78.5 - Hyperlipidemia, unspecified Status: Acute Assessment and Plan: Continue home crestor (8) Afib: Code(s): I48.91 - Unspecified atrial fibrillation Status: Acute Assessment and Plan: Reports tachycardia Continue home Cardizem Trend heart rate (9) D-dimer, elevated: Code(s):
--- NOTE | 2021-12-11 10:30 | P.DS_ITS ---
DS: Admitting Diagnosis Discharge Date 12/11/21 1030 Admitting Diagnosis Gangrene of the left lower leg/Status post BKA DS: Discharge Diagnosis Discharge Diagnosis (1) Non-healing wound of left lower extremity: Code(s): S81.802A - Unspecified open wound, left lower leg, initial encounter Status: Chronic Assessment and Plan: * Reported 1 month of non-healing foot wound * General surgery consult appreciate his recommendation. Surgical procedure performed on 12/02/2021. A below the knee amputation was performed * IV pain management with morphine and oral pain management with tramadol * Cefazolin 2gm Q8Hr, consider deescalation, DC'D at this time * Post op care per general surgery * Low fiber diet * PT/OT continues * Case management consult for further management of the patient's placement needs to a skilled facility * peer to peer was performed and the patient had been accepted with her insurance company for skilled therapy, 2 hours daily and monitoring serial labs. (2) Acute respiratory failure: Code(s): J96.00 - Acute respiratory failure, unspecified whether with hypoxia or hypercapnia Status: Acute Assessment and Plan: * Will not need oxygen evaluation, as she will be going to facility * Repeat ABGs showed improvement on 12/05/2021, patient is currently on 0-2L oxygen NC, 95% on room air * repeat chest xray Mild atelectasis at the lung bases * Events On 12/04/21 Patient is unable to complete full sentences and is tripoding.--Patient is noted to be tachypneic with an O2 saturation of 84. ABGs reviewed from 12/04/2021. Patient did have a pH of 7.511, pO2 55.1 and pCO2 35.6, bicarb 27.8 * 12/04/2021 Chest x-ray shows pulmonary vascular congestion without pulmonary edema with a new mild bibasilar opacity which could represent atelectasis or pneumonia * D-dimer mildly elevated at 1.52, possibly due to his recent surgery and illness/gangrenous foot * CTA negative for pulmonary embolism, did result in findings of bilateral atelectasis versus pneumonia. Given the patient's clinical picture today and no leukocytosis with recent surgery, suggestive of bilateral atelectasis. Will encourage patient to do incentive spirometry * Continue to trend respiratory status (3) Hyponatremia: Code(s): E87.1 - Hypo-osmolality and hyponatremia Status: Acute Assessment and Plan: * Sodium currently 130 * Monitor serum electrolytes. Sodium upon admission was 131, down trended after surgical intervention and IV fluids. Patient's sodium decreased to 123 on 12/03/2021. Slowly up trending as patient's oral intake has improved. IV fluids discontinued and a sodium bicarb tablet was administered. * Nephrology consulted for hyponatremia, appreciate assistance and recommendations * Urine studies performed * FENa score is 2.2 (4) Ischemic pain of left foot: Code(s): M79.672 - Pain in left foot; I99.8 - Other disorder of circulatory system Status: Chronic Assessment and Plan: * Pain medications on board * Surgery consulted thank you for your recommendations * See above (5) Gangrene of left foot: Code(s): I96 - Gangrene, not elsewhere classified Status: Chronic Assessment and Plan: * Multiple areas of noted gangrene * Antibiotics on board * BKA scheduled 12/02/21 * 2/2 above (6) Tobacco abuse: Code(s): Z72.0 - Tobacco use Status: Chronic Asse
[2021-12-11 11:05] LABS: EDCOVIDSCREEN Negative (Negative)
[2021-12-11 19:41] LABS: Creatinine, Random Urine 64 mg/dL (20-275); Total Protein/Creatinine Ratio 594 mg/g creat (21-161)
== END 2021-12-11 16:27 | DRG 239 ==
PROVIDERS: Internal Medicine Nephrology; Nurse Practitioner Family; Admitting Provider Surgery; PCP Internal Medicine; Visit Provider Nurse Practitioner
PROC: 0Y6J0Z3 Detachment at Left Lower Leg, Low, Open Approach (ICD-10-PCS; CPT 27882; principal; 2021-12-02 13:00)
DX: I96 Gangrene, not elsewhere classified (principal); J95.821 Acute postprocedural respiratory failure; E87.1 Hypo-osmolality and hyponatremia; J95.89 Other postprocedural complications and disorders of respiratory system, not elsewhere classified; J98.11 Atelectasis; R64 Cachexia; L97.529 Non-pressure chronic ulcer of other part of left foot with unspecified severity; E87.6 Hypokalemia; E78.5 Hyperlipidemia, unspecified; I48.91 Unspecified atrial fibrillation; Z20.822 Contact with and (suspected) exposure to COVID-19; I10 Essential (primary) hypertension; F17.210 Nicotine dependence, cigarettes, uncomplicated; Z98.42 Cataract extraction status, left eye; Z98.41 Cataract extraction status, right eye; Z68.23 Body mass index [BMI] 23.0-23.9, adult
CPT/HCPCS: 36415; 36600; 71045; 71046; 71275; 80048; 80053; 82375; 82533; 82570; 82805; 82948; 83050; 83735; 83935; 84100; 84155; 84156; 84165; 84166; 84295; 84300; 84443; 84540; 85025; 85027; 85380; 85610; 85730; 86850; 86900; 86901; 87426; 88307; 88311; 94762; 97110; 97161; 97166; 97530; 97535; A9270; C9803; G0378; G0379; J0690; J1650; J1885; J2270; J2370; J2405; J2704; J3010; J3475; J7030; J7042; J7120; Q9967

== ENCOUNTER 2023-09-18 09:08 | Inpatient (IN) | payer MEDICARE, SELFPAY ==
[2023-09-18] VITALS (15 sets, daily range): BP systolic 124–174; BP diastolic 85–107; PULSE 85–100; RESP 16–28; TEMP 36.8–36.9; O2SAT 80–97; BMI 21.2
--- NOTE | ~2023-09-18 | US_ITS ---
EXAMINATION: US venous doppler [facility] DATE: 09/19/2023 12:48 INDICATION: Hypoxia, history of below-knee amputation of the left leg TECHNIQUE: Persaud scale images without and with compression and Doppler images of the bilateral lower e xtremity veins were obtained. COMPARISON: None FINDINGS: The right common femoral vein, profunda femoral vein, femoral vein, popliteal vein, peroneal trunk, p osterior tibial veins, and greater saphenous vein are patent. The left common femoral vein, profunda femoral vein, femoral vein, and popliteal vein are patent. IMPRESSION: 1. Patent bilateral lower extremity veins. No evidence of deep venous thrombosis. Reviewed, dictated and finalized at location F. DING CONSTRUCTION ENGINEER IMPRESSION: 1. Patent bilateral lower extremity veins. No evidence of deep venous thrombosi s.
--- NOTE | ~2023-09-18 | CT_ITS ---
Clinical Indication: Syncope, hypoxia CT Scan of the Chest with Contrast: Technique: Contiguous sections were acquired throughout the chest after intravenous administration of 100 cc of Omnipaque 350. Dose reduction technique was used on this scan by utilizing automated expos ure control and iterative reconstruction technique. The dose-length product (DLP) was 288.26 mGy-cm. COMPARISON: 12/04/2021 Findings: There is no evidence of any significant mediastinal, hilar or axillary lymphadenopathy. There are pro bably several small pulmonary emboli in segmental branches in the right lower lobe, and possibly in t he right upper lobe. No large central pulmonary embolus seen.. There is no evidence of aortic dissect ion or aneurysm. There is no evidence of pleural or pericardial effusion. There is moderate to advanced emphysema. There is bibasilar atelectatic change. Images through the upper abdomen reveal no abnormalities. Impression: Several small pulmonary emboli in segmental branches in the right lower lobe noncalcified right upper lobe. No large central pulmonary embolus. Moderate to advanced emphysema with bibasilar atelectatic change. Wilfredo with BENJI Bolanos at the time of this reading. Reviewed, dictated and finalized at location . SUPPORT WORKER Impression: Several small pulmonary emboli in segmental branches in the right lower lobe no ncalcified right upper lobe. No large central pulmonary embolus. Moderate to advanced emphysema with bibasilar atelectatic change. Wilfredo with BENJI Bolanos at the time of this reading.
--- NOTE | ~2023-09-18 | CT_ITS ---
EXAMINATION: CT brain wo con INDICATION: Transient alteration of awareness COMPARISON: None TECHNIQUE: Standard unenhanced head CT. The dose-length product (DLP) was 529.67 mGy-cm. The mA was a djusted according to patient size. Iterative reconstruction technique was employed. FINDINGS: No acute intraparenchymal hemorrhage. No evidence of mass lesion. No evidence of acute infa rction. There is mild periventricular and subcortical hypodensity probably related to small vessel is chemic disease. There is mild prominence of the sulci and ventricles related to cerebral atrophy. Int racranial calcified cerebral atherosclerosis is noted. No extra-axial collections. No mass effect or midline shift. Changes in the globes are likely from ocular lens surgery. The visualized sinuses and mastoid air cells are well aerated. IMPRESSION: 1. No acute intracranial abnormality. 2. Age related findings. Reviewed, dictated and finalized at location F. YARN SUPERVISOR
--- NOTE | ~2023-09-18 | XR_ITS ---
EXAMINATION: XR chest 1V INDICATION: Cough, transient alteration of awareness TECHNIQUE: Frontal view of the chest is obtained. COMPARISON: 12/09/2021 FINDINGS: There is mild atelectasis of the lung bases. No pleural effusion or pneumothorax. The cardi omediastinal silhouette is normal. There is a healed fracture of the proximal left humerus. IMPRESSION: 1. Mild atelectasis of the lung bases. Reviewed, dictated and finalized at location F. OOD TECHNOLOGY SPECIALIST
--- NOTE | ~2023-09-18 | XR_ITS ---
EXAMINATION: XR hand LT min 3V INDICATION: Left hand pain TECHNIQUE: Three views of the left hand are obtained. COMPARISON: None available FINDINGS: There is advanced osteoarthritis at the first carpometacarpal joint. No fracture is identif ied. There is mild osteoarthritis of multiple interphalangeal joints. There is soft tissue swelling o f the wrist. There appears to be volar tilt of the lunate on the lateral view. IMPRESSION: 1. 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 2. Possible volar intercalated segment instability. Reviewed, dictated and finalized at location F. HOP
--- NOTE | ~2023-09-18 | XR_ITS ---
EXAMINATION: XR wrist LT min 3V DATE: 09/18/2023 10:05 INDICATION: Left wrist pain TECHNIQUE: Posteroanterior, ulnar deviation, oblique, and lateral views of the left wrist were obtain ed. COMPARISON: None available FINDINGS: There is osteoarthritis at the first metacarpophalangeal joint. There appears to be volar t ilt of the lunate on the lateral view. There is soft tissue swelling of the wrist. No fracture is katharina ntified. IMPRESSION: 1. Possible volar intercalated segment instability. Reviewed, dictated and finalized at location F. HEATER
--- NOTE | ~2023-09-18 | US_ITS ---
EXAMINATION: US carotid duplex BI DATE: 09/19/2023 12:53 INDICATION: Transient alteration of awareness TECHNIQUE: Grayscale, color Doppler, and pulsed Doppler images of the cervical carotid arteries were obtained. The degree of vessel stenosis is placed in one of the following categories: normal, <50%, 5 0-69%, >=70% but less than near-occlusion, near-occlusion, or total occlusion. Note that percent sten osis relative to normal distal artery lumen diameter is indirectly measured from velocity measurement s as described by Sachin, et al. Radiology 2003; 229:340-346. COMPARISON: None. FINDINGS: RIGHT: The right common carotid artery (CCA) peak systolic velocity (PSV) is 62 cm/s. The right internal car otid artery (ICA) PSV is 71 cm/s. The right ICA end-diastolic velocity (EDV) is 21 cm/s. The right IC A/CCA PSV ratio is 1.0. Grayscale and color Doppler images yield an estimate of less than 50% diamete r reduction from plaque in the ICA. The external carotid artery (ECA) PSV is 90 cm/s. There is antegr cammie flow in the right vertebral artery. LEFT: The left CCA PSV is 67 cm/s. The left ICA PSV is 56 cm/s. The left ICA EDV is 21 cm/s. The left ICA/C CA PSV ratio is 1.7. Grayscale and color Doppler images yield an estimate of less than 50% diameter r eduction from plaque in the ICA. The ECA PSV is 54 cm/s. There is antegrade flow in the left vertebra l artery. IMPRESSION: 1. <50% stenosis in the right internal carotid artery. 2. <50% stenosis in the left internal carotid artery. Reviewed, dictated and finalized at location F. HANDLER
--- NOTE | 2023-09-18 09:00 | ED.SYNCOPE ---
HPI - Syncope General Chief Complaint: Syncope <Claudy Anderson APRN - Last Filed: 09/18/23 16:42> Stated Complaint: syncopal <Claudy Anderson APRN - Last Filed: 09/18/23 16:42> Time Seen by Provider: 09/18/23 09:08 <Claudy Anderson APRN - Last Filed: 09/18/23 16:42> Source: patient <Claudy Anderson APRN - Last Filed: 09/18/23 16:42> Mode of arrival: ambulatory <Claudy Anderson APRN - Last Filed: 09/18/23 16:42> Limitations: no limitations <Claudy Anderson APRN - Last Filed: 09/18/23 16:42> History of Present Illness HPI narrative: Patient is a 83-year-old female patient presenting to the ER today for syncopal episode last night. Patient reports she woke up this morning on the floor and states that her left hand/wrist was caught in the wheel of the wheelchair. She does not recall how she ended up on the floor. History of high blood pressure, high cholesterol, and left leg bka. Also reporting a cough that is non productive at this time. Denies any headache, shortness of breath, or chest pain. Patient is conscious alert oriented x3 at this time. <Claudy Anderson APRN - Last Filed: 09/18/23 16:42> Related Data Home Medications: Home Medications Medication Instructions Recorded Confirmed rosuvastatin 10 mg tablet 10 mg PO DAILY 11/27/21 01/08/22 tobramycin 0.3 % eye drops 1 drp EACH EYE Q4H 11/27/21 01/08/22 diltiazem HCl 240 mg 240 mg PO DAILY 12/01/21 01/08/22 tablet,extended release 24 hr ([facility] [place]) naproxen sodium 220 mg capsule 220 mg PO Q8H PRN Pain 12/01/21 01/08/22 tramadol 50 mg tablet 50 mg PO Q8H PRN Pain 12/01/21 01/08/22 <Claudy Anderson APRN - Last Filed: 09/18/23 16:42> Allergies/Adverse Reactions: Allergies Allergy/AdvReac Type Severity Reaction Status Date / Time Sulfa (Sulfonamide Allergy Severe ITCHING, Verified 01/08/22 09:35 Antibiotics) RASH quinine Allergy Mild RINGING IN Verified 01/08/22 09:35 EARS, SLURRED SPEECH, DROOPING EYE LID pravastatin AdvReac Intermediate rash Verified 01/08/22 09:35 ezetimibe AdvReac rash Verified 01/08/22 09:35 [From Vytorin 10-10] Quinidine-Quinine Analogues AdvReac shortness Verified 01/08/22 09:35 (Cincho of breath, slurred speech simvastatin AdvReac rash Verified 01/08/22 09:35 [From Vytorin 10-10] <Claudy Anderson METAL BENCH PATTERNMAKER - Last Filed: 09/18/23 16:42> Review of Systems Review of Systems: Pertinent positives per HPI. Patient denies any fever, chills, rash, headache, visual changes, dizziness, sore throat, shortness of breath, chest pain, palpitations, nausea, vomiting, diarrhea, constipation, abdominal pain, or any urinary issues. 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 Code status: Do not resuscitate. Smoking packs per day: 0.5 Smoking cigarettes per day: 10.0 Years smoked: 50 Smoking pack-years: 25.00 Smoking status: Former smoker Tob
--- NOTE | 2023-09-18 09:08 | ECG_ITS ---
Measurements Intervals Ferron Rate: 99 P: 34 GA: 199 QRS: 38 QRSD: 86 T: 1 QT: 329 QTc: 424 Interpretive Statements SINUS RHYTHM RIGHT ATRIAL ENLARGEMENT LEFT ATRIAL ENLARGEMENT CONSIDER ANTERIOR INFARCT, AGE INDETERMINATE BORDERLINE ST-T WAVE ABNORMALITY- ANTEROLAT/INF LEADS BASELINE WANDER- I, II, III, AVR, V5 ABNORMAL ECG COMPARED TO ECG 03/28/2019 09:33:50 NO SIGNIFICANT CHANGES Electronically Signed On 09-18-2023 12:27:53 OPEN WINDER by Frank Earl D.O.
[2023-09-18 09:45] LABS: Basophils Percent Auto 0.4 % (0.2-1.2); Eosinophils Percent Auto 0.1 % (0-4.4); Hematocrit 47.9 % (37.0-47.0); Hemoglobin 14.7 g/dL (12.0-15.0); Immature Granulocyte Absolute 0.04 K/mm3 (0.00-0.031); Immature Granulocyte Percent A 0.5 % (0-0.5); Lymphocytes Absolute Auto 0.98 K/mm3 (0.9-3.2); Lymphocytes Percent Auto 11.8 % (18.3-44.2); Mean Corpuscular HGB Conc 30.7 g/dl (32-36); Mean Corpuscular Hemoglobin 25.9 pg (26-34); Mean Corpuscular Volume 84.3 fl (80-100); Mean Platelet Volume 10.3 fl (7.4-10.4); Monocytes Absolute Auto 0.7 K/mm3 (0.1-0.6); Monocytes Percent Auto 8.3 % (2.6-8.5); Neutrophils Absolute Auto 6.6 K/mm3 (1.3-6.7); Neutrophils Percent Auto 78.9 % (45.5-73.1); Platelet Count Result 206 k/mm3 (150-375); Red Blood Count 5.68 M/mm3 (4.2-5.4); Red Cell Distribution Width 16.8 % (11.5-14.5); White Blood Count 8.3 K/mm3 (4.5-10.0)
[2023-09-18 09:57] LABS: Alanine Aminotransferase 21 U/L (6-35); Albumin Level 3.7 g/dL (3.5-5.1); Alkaline Phosphatase 85 U/L (38-126); Anion Gap 8 mmol/L (8-16); Aspartate Amino Transferase 45 U/L (14-36); Blood Urea Nitrogen 13 mg/dL (7-17); Calcium 9.3 mg/dL (8.4-10.2); Carbon Dioxide 32 mmol/L (22-30); Chloride 91 mmol/L (98-107); Estimated CRCL calculation 28 ml/min; Estimated Glomerular Filt Rate 58; Glucose 114 mg/dL (65-110); Sodium 131 mmol/L (137-145)
[2023-09-18 09:58] LABS: Lactic Acid Reflex 1.4 mmol/L (0.7-2.0)
[2023-09-18 09:59] LABS: INR 1.2; Prothrombin Time 15.4 Seconds (11.1-14.7)
[2023-09-18 10:00] LABS: Ammonia < 9 umol/L (9-30); Partial Thromboplastin Time 32.3 SECONDS (22.3-36.8)
[2023-09-18 10:09] LABS: NT Pro B Type Natriuretic Pept 13200 pg/mL (19.9-100); Troponin I 0.034 ng/mL (0.000-0.034)
[2023-09-18 10:31] LABS: Influenza A QL RT-PCR Negative (Negative); Influenza B QL RT-PCR Negative (Negative); RSV RNA, RT-PCR Negative (Negative); SARS-CoV-2 RNA PCR Negative (Negative)
[2023-09-18] MEDS: POTASSIUM CHLORIDE 20 MEQ PACKET (FOR LIQUID) 40 MEQ PO (10:33)
[2023-09-18] MEDS: FUROSEMIDE INJ 40 MG/4 ML VIAL IV PUSH (10:33)
[2023-09-18 10:34] LABS: Appearance Urine Clear (Clear); Bacteria Urine None Seen /hpf; Bilirubin Urine Negative (Negative); Blood Urine 2+ (Negative); Color Urine Yellow (Yellow); Glucose Urine UA Negative (Negative); Ketones Urine Negative (Negative); Leukocyte Esterase Ur Negative LEU/UL (Negative); Nitrate Urine Negative (Negative); Non Pathogenic Casts 0-2; Protein Urine 2+ mg/dL (Negative); RBC Urine 0-2 /hpf (0-2); Specific Grav Ur 1.014 (1.001-1.035); Squamous Epithelial Cell Urine None seen /hpf (Few); WBC Urine 0-5 /hpf
[2023-09-18 10:42] LABS: Add Urine Microscopic? YES
[2023-09-18] MEDS: KCL 20 MEQ/SW 100 ML 100 ML 50 MEQ IVPB (10:57)
[2023-09-18] MEDS: SODIUM CHLORIDE 0.9% IV 500 ML 999 ML IV CONT (11:10)
[2023-09-18 11:12] LABS: Base Excess ABG 8.6 mEq/l (+/-2.0); Fractional Inspired Oxygen 44 %; Oxygen Content ABG 19.4 %vol (16.0-22.0); Oxygen Saturation ABG 88.8 % (95.0-100.0); PCO2 ABG 53.5 mmHg (35.0-45.0); PO2 ABG 54.7 mmHg (80.0-100.0); PO2 FiO2 Ratio Arterial Blood 1.24 %; Total Hemoglobin 16.3 g/dL (12.0-18.0); pH ABG 7.433 (7.350-7.450)
[2023-09-18 11:15] LABS: Device NASAL CANNULA; Modified Allen's Test Pass; Site Drawn LEFT RADIAL
--- NOTE | 2023-09-18 13:56 | PM.IMHP ---
H&P: HPI History of Present Illness Date/Time: 09/18/23 15:30 Chief Complaint: Fall, possible syncope. Narrative: This is an 83-year-old female with history of hypertension and hyperlipidemia who presented to the emergency department via EMS for evaluation after a fall and possible syncopal episode. The patient provides the following history. She tells me that she woke up in the middle the night on the floor and she presumes that she fell out of her wheelchair though she does not recall that happening. She is worried that she may have passed out and she goes on to say that she was recently started on Fosamax and she is wondering if that is what caused her to pass out. She lay on the floor until this morning when she was able to call her neighbor for help. On arrival to ED she was complaining of pain in the left wrist and she reports that her wheelchair was laying on that wrist when she came to after the fall. She was hypoxic on arrival and was initially started on BiPAP though that has been weaned. CTA of the chest showed several small pulmonary emboli in the segmental branches in the right lower lobe. ProBNP and troponin were elevated at 13,200 and 0.050 respectively. Total CK was also a bit elevated at 446. She was given a dose of furosemide in the ED for possible congestive heart failure and is being admitted in this setting. At the time my evaluation she is resting comfortably and does not have any significant complaints. She denies recent cold and flu symptoms. She has not been having any episodes of lightheadedness or dizziness. She also denies chest pain, pleuritic pain, and palpitations. She had a left [id number] amputation for a gangrenous infection of that left foot many years ago. She has not noticed any significant swelling above the amputation site or of her right leg. She is eager to return home as soon as possible. Review of Systems Review of Systems: Twelve systems were reviewed and are negative except for as per HPI. 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 Family History Family History Father Alcoholism Mother Hypertension Sibling Colon cancer Other Diabetes mellitus Kidney disease Social History Social History Social History: Surrogate medical decision maker: Rashid Pena, son. Code status: Do not resuscitate. Smoking packs per day: 0.5 Smoking cigarettes per day: 10.0 Years smoked: 50 Smoking pack-years: 25.00 Smoking status: Current every day smoker Tobacco type: cigarettes Second hand tobacco smoke exposure: No Alcohol intake: never Substance use: never Substance use type: does not use Do You Feel Safe in your Home?: Yes Lack of Transportation: No Lack of Food: Never True Current Housing: I Have Housing Concerned About Future Housing: No Difficulty Paying Gas/Electric Bills: No Difficulty Paying for Meds: No Currently Unemployed: No Education: Associate Degree Difficulty w/ Childcare or Family Care: No Living arrangements: alone Additional living arrangements comments: Lives alone. Has 3 children. 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
[2023-09-18 14:54] LABS: Anion Gap 2 mmol/L (8-16); Blood Urea Nitrogen 13 mg/dL (7-17); Calcium 8.5 mg/dL (8.4-10.2); Carbon Dioxide 35 mmol/L (22-30); Chloride 94 mmol/L (98-107); Creatine Kinase 446 U/L (30-135); Estimated CRCL calculation 31 ml/min; Estimated Glomerular Filt Rate > 60; Glucose 95 mg/dL (65-110); Magnesium 1.7 mg/dL (1.6-2.3); Potassium 4.1 mmol/L (3.4-5.0); Sodium 131 mmol/L (137-145)
[2023-09-18] MEDS: ENOXAPARIN 60 MG/0.6 ML SYRINGE 56 MG SUB-Q (17:22)
--- NOTE | 2023-09-18 18:25 | PC.NURSE ---
Patient refuses to have personal belongings placed in a secure spot or sent home. This RN counted a total of $613.00 gold in the patients purse. Family encouraged her to send the money home with her care provider, however she was so upset by this and refused to do so. The money remains at the bedside in her purse in several different envelopes and her wallet. Envelope #1 labeled Aug/Sep has $160.00, Envelope #2 labeled Basilio Grass has $75.00, Envelope #3 labeled x-mas has $250.00, Her wallet has $82.00 in one compartment and $46.00 in another compartment.
[2023-09-18] MEDS: FAMOTIDINE 20 MG TABLET PO (20:54)
[2023-09-18] MEDS: TOBRAMYCIN SULFATE 0.3% OPHTH SOLN 5 ML 1 DROP EACH EYE (20:54)
[2023-09-19] VITALS (12 sets, daily range): BP systolic 103–144; BP diastolic 68–109; PULSE 74–100; RESP 16–20; TEMP 36.5–37.3; O2SAT 95–100
[2023-09-19 04:04] LABS: Hematocrit 45.7 % (37.0-47.0); Hemoglobin 13.9 g/dL (12.0-15.0); Mean Corpuscular HGB Conc 30.4 g/dl (32-36); Mean Corpuscular Volume 85.6 fl (80-100); Platelet Count Result 207 k/mm3 (150-375); Red Blood Count 5.34 M/mm3 (4.2-5.4); White Blood Count 5.5 K/mm3 (4.5-10.0)
[2023-09-19 04:14] LABS: Alanine Aminotransferase 17 U/L (6-35); Albumin Level 3.1 g/dL (3.5-5.1); Alkaline Phosphatase 68 U/L (38-126); Anion Gap 2 mmol/L (8-16); Aspartate Amino Transferase 39 U/L (14-36); Bilirubin,Total 0.9 mg/dL (0.2-1.3); Blood Urea Nitrogen 15 mg/dL (7-17); Calcium 8.5 mg/dL (8.4-10.2); Carbon Dioxide 35 mmol/L (22-30); Chloride 93 mmol/L (98-107); Estimated CRCL calculation 24 ml/min; Estimated Glomerular Filt Rate 48; Glucose 89 mg/dL (65-110); Potassium 3.6 mmol/L (3.4-5.0); Sodium 130 mmol/L (137-145)
[2023-09-19] MEDS: ROSUVASTATIN 10 MG TABLET PO (08:57)
[2023-09-19] MEDS: TOBRAMYCIN SULFATE 0.3% OPHTH SOLN 5 ML 1 DROP EACH EYE ×4 (08:58→20:32)
[2023-09-19] MEDS: ENOXAPARIN 60 MG/0.6 ML SYRINGE 56 MG SUB-Q ×2 (08:58→20:31)
[2023-09-19] MEDS: dilTIAZem HCL CD 240 MG CAP.24HR PO (08:58)
[2023-09-19] MEDS: FAMOTIDINE 20 MG TABLET PO ×2 (08:58→20:32)
--- NOTE | 2023-09-19 10:21 | PM.IMPN ---
Progress Note: A&P Assessment and Plan (1) Pulmonary embolism: Code(s): I26.99 - Other pulmonary embolism without acute cor pulmonale Status: Acute (2) Acute respiratory failure with hypoxia: Code(s): J96.01 - Acute respiratory failure with hypoxia Status: Acute (3) Congestive heart failure: Qualifiers: Heart failure chronicity: acute Heart failure type: unspecified Qualified Code(s): I50.9 - Heart failure, unspecified Code(s): I50.9 - Heart failure, unspecified Status: Acute Assessment and Plan: Pulmonary embolism. Currently on BiPAP. Lovenox therapeutic dose. Follow-up with lower extremity Dopplers. PT OT eval and treat. Resumed home medications Positive troponin possibly due to demand ischemia No acute EKG changes History of hypertension continue diltiazem. History of hyperlipidemia continue lovastatin. SOWMYA And gentle hydration. Creatinine up to 1.3 Hyponatremia sodium 130 probably due to hypo osmolar state Avoid nephrotoxic drugs. Monitor antihypertensive drugs Avoid NSAIDs. Routine CMP monitor GFR. Monitor electrolytes potassium levels. DVT prophylaxis. Lovenox GI prophylaxis. Famotidine All records reviewed Discussed plan of care with the nursing staff and with the patient in detail. Answered all questions and concerns from the patient. All labs have been reviewed. Code status updated dictation may have been done utilizing a voice recognition system. Attempts have been made to correct errors. However, there may be uncorrected grammatical, spelling, and recognition errors present. Subjective Date/time seen: 09/19/23 10:21 Interval history: Denies any complaint Review of Systems Review of Systems: All systems reviewed & are unremarkable except as noted in HPI and below Exam Narrative: General: Well-developed, nontoxic-appearing female sitting up in bed. Weight: 52.6 kg. BMI: 21.2. HEENT: Normocephalic, atraumatic. She keeps her right eye closed that she does not have vision in that eye. Left pupil is sluggishly reactive. Sclera anicteric. Tacky mucous membranes. She is edentulous. Neck: Supple. No obvious carotid bruits. Respiratory: Respirations are nonlabored. Lung sounds are diminished with faint expiratory wheezing. Cardiovascular: Regular rate and rhythm with S1-S2. Gastrointestinal: Abdomen is soft, nontender, and nondistended with positive bowel sounds. Skin: Warm and dry. Right leg is dry and scaly. Extremities: No cyanosis or clubbing. Chronic, mild edema of the right lower leg. Status post left rjuwd-[id number]-hvfz amputation. Neurological: Alert and oriented. Cranial nerves 2-12 are grossly intact. Speech is clear. No facial asymmetry. No gross focal deficits to casual conversation. Psychiatric: Pleasant and cooperative with appropriate mood and affect. Objective Data Vital Signs Vital Signs: Vital Signs - 24 hr 09/18/23 10:47 09/18/23 11:27 09/18/23 12:19 Temperature Pulse Rate 96 95 Respiratory Rate 21 H 26 H Blood Pressure 170/102 H Pulse Oximetry 94 94 95 Oxygen Delivery BiPAP BiPAP Oxygen Flow Rate Fraction of Inspired Oxygen 09/18/23 12:28 09/18/23 13:35 09/18/23 13:37 Temperature Pulse Rate 90 94 95 Respiratory Rate 19 26 H 24 H Blood Pressure 165/105 H Pulse Oximetry 94 97 94 Oxygen Delivery BiPAP BiPAP Oxygen Flow Rate Fraction of Inspired Oxygen 30 09/18/23 14:32 09/18/23 16:58 09/18/23 18:00 Temperature 36.9 C Pulse Rate 85 97 87 Respiratory Rate 19 28 H Blood Pressure 124/88 155/95 H Pulse Oximetry 95 92 Oxygen Delivery Oxygen Flow Rate Fraction of Inspired Oxygen 09/18/23 19:43 09/18/23 20:00 09/18/23 20:00 Temperature 36.8 C Pulse Rate 90 89 Respiratory Rate 16 Blood Pressure 126/85 Pulse Oximetry 96 96 Oxygen Delivery Nasal Cannula Oxygen Flow Rate 2 Fraction of Inspired Oxygen 09/19/23 00:09/06
--- NOTE | 2023-09-19 19:58 | PC.NURSE ---
This patient, Dorene Pathak, was transferred to [facility] on 09/19/23 at 1958. Personal belongings sent with patient. Report given to Abhi CALIXTO. Appropriate documentation sent with patient.
[2023-09-20] MEDS: TOBRAMYCIN SULFATE 0.3% OPHTH SOLN 5 ML 1 DROP EACH EYE ×6 (00:05→20:59)
--- NOTE | 2023-09-20 08:22 | PCOTNOTE ---
Pt has an ortho consult pending. Occupational therapy evaluation once ortho recommendations are given. Will follow.
[2023-09-20] MEDS: FAMOTIDINE 20 MG TABLET PO ×2 (08:25→21:00)
[2023-09-20] MEDS: ROSUVASTATIN 10 MG TABLET PO (08:25)
[2023-09-20] MEDS: dilTIAZem HCL CD 240 MG CAP.24HR PO (08:25)
[2023-09-20] MEDS: ENOXAPARIN 60 MG/0.6 ML SYRINGE 56 MG SUB-Q ×2 (08:25→21:00)
[2023-09-20 08:51] VITALS: BP 115/76; PULSE 80; RESP 18; TEMP 36.8; O2SAT 92
[2023-09-20 14:06] VITALS: BP 102/62; PULSE 65; RESP 17; TEMP 36.6; O2SAT 90
--- NOTE | 2023-09-20 14:09 | ECHO_ITS ---
Patient Info Name: Dorene Pathak Age: 83 years : 1940 Gender: Female Ht: 62 in Wt: 122 lbs BSA: 1.56 m2 HR: 84 bpm BP: 112 / 68 mmHg Technical Quality: Fair Exam Date: 09/20/2023 11:10 AM Exam Location: Echo Lab Exam Room: [facility] Patient Status: Inpatient Admit Date: 09/18/2023 Staff Ordering Physician: Kenyatta Bolanos PA-C Drawing Instructor: Lorenza Pathak RDCS Attending Provider: Yemi Cruz MD Referring Physician: Luis Miguel VELAZQUEZ; Exam Type: CA echo doppler color flow Study Info Indications - syncope Complete two-dimensional, color flow and Doppler transthoracic echocardiogram is performed. Summary 1. Complete two-dimensional, color flow and Doppler transthoracic echocardiogram is performed. 2. Left ventricular chamber dimension is normal. 3. Left ventricular systolic function is normal, estimated at 60-65%. 4. The left ventricular diastolic function is grade I diastolic dysfunction. 5. E/e' 15 is elevated. 6. Right ventricular chamber dimension is severely enlarged. 7. Right ventricular systolic function is severely reduced and with abnormal TAPSE 1.4 cm. 8. Left atrial chamber dimension is mildly enlarged. 9. Right atrial chamber dimension is mildly enlarged. 10. There is mild aortic valve sclerosis. 11. There is mild to moderate tricuspid valve regurgitation. 12. Moderate pulmonary hypertension, estimated pulmonary arterial systolic pressure is 57 mmHg. Left Ventricle E/e' 15 is elevated. Left ventricular chamber dimension is normal. Left ventricular systolic function is normal, estimated at 60-65%. The left ventricular diastolic function is grade I diastolic dysfunction. Right Ventricle Right ventricular systolic function is severely reduced and with abnormal TAPSE 1.4 cm. Right ventricular chamber dimension is severely enlarged. Left Atria Left atrial chamber dimension is mildly enlarged. Right Atria Right atrial chamber dimension is mildly enlarged. Aortic Valve The aortic valve is trileaflet. There is mild aortic valve sclerosis. There is no aortic valve stenosis. There is no aortic valve regurgitation. Pulmonic Valve There is no pulmonic regurgitation. Mitral Valve There is no mitral valve stenosis. There is no mitral valve regurgitation. Tricuspid Valve There is mild to moderate tricuspid valve regurgitation. Moderate pulmonary hypertension, estimated pulmonary arterial systolic pressure is 57 mmHg. Pericardium/Pleural There is no pericardial effusion. Inferior Vena Cava Normal inferior vena cava with >50% collapse upon inspiration consistent with normal right atrial pressure, 5 mmHg. Aorta The aortic root size at the sinus of Valsalva is normal. Left Ventricular Outflow Tract Name Value Normal LVOT 2D LVOT Diameter 2.0 cm LVOT Doppler LVOT Peak Gradient 5 mmHg LVOT Mean Gradient 2 mmHg LVOT VTI 19 cm LVOT VTI/AV VTI Ratio 1.0 LVOT Stroke Volume 56 ml LVOT CO 12.6 l/min LVOT CI 8.1 l/min/m2 Pulmonic Valve
--- NOTE | 2023-09-20 14:57 | PM.IMPN ---
Progress Note: A&P Assessment and Plan (1) Pulmonary embolism: Code(s): I26.99 - Other pulmonary embolism without acute cor pulmonale Status: Acute (2) Acute respiratory failure with hypoxia: Code(s): J96.01 - Acute respiratory failure with hypoxia Status: Acute (3) Congestive heart failure: Qualifiers: Heart failure chronicity: acute Heart failure type: unspecified Qualified Code(s): I50.9 - Heart failure, unspecified Code(s): I50.9 - Heart failure, unspecified Status: Acute Assessment and Plan: Pulmonary embolism. Currently on BiPAP. Lovenox therapeutic dose. Follow-up with lower extremity Dopplers. PT OT eval and treat. Resumed home medications Positive troponin possibly due to demand ischemia No acute EKG changes History of hypertension continue diltiazem. History of hyperlipidemia continue lovastatin. SOWMYA And gentle hydration. Creatinine up to 1.3 Hyponatremia sodium 130 probably due to hypo osmolar state Avoid nephrotoxic drugs. Monitor antihypertensive drugs Avoid NSAIDs. Routine CMP monitor GFR. Monitor electrolytes potassium levels. DVT prophylaxis. Lovenox GI prophylaxis. Famotidine All records reviewed Discussed plan of care with the nursing staff and with the patient in detail. Answered all questions and concerns from the patient. All labs have been reviewed. Code status updated dictation may have been done utilizing a voice recognition system. Attempts have been made to correct errors. However, there may be uncorrected grammatical, spelling, and recognition errors present. (4) Instability of left wrist joint: Code(s): M25.332 - Other instability, left wrist Status: Acute Assessment and Plan: 1. 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 2. Possible volar intercalated segment instability. Plan Advise to bring left Ntaalia prosthesis to be fully evaluated by PT/OT Time Spent With Patient Time with patient: 25 - 35 minutes Subjective Date/time seen: 09/20/23 14:57 Interval history: Seen and examined; requesting discharge prior to her next appointment for her eye surgeon on 09/25/23 Review of Systems Review of Systems: Twelve systems were reviewed and are negative except for as per HPI. All systems reviewed & are unremarkable except as noted in HPI and below Exam Narrative: General: Well-developed, nontoxic-appearing female sitting up in bed. Weight: 52.6 kg. BMI: 21.2. HEENT: Normocephalic, atraumatic. She keeps her right eye closed that she does not have vision in that eye. Left pupil is sluggishly reactive. Sclera anicteric. Tacky mucous membranes. She is edentulous. Neck: Supple. No obvious carotid bruits. Respiratory: Respirations are nonlabored. Lung sounds are diminished with faint expiratory wheezing. Cardiovascular: Regular rate and rhythm with S1-S2. Gastrointestinal: Abdomen is soft, nontender, and nondistended with positive bowel sounds. Skin: Warm and dry. Right leg is dry and scaly. Extremities: No cyanosis or clubbing. Chronic, mild edema of the right lower leg. Status post left [id number]-sbe-srex amputation. Neurological: Alert and oriented. Cranial nerves 2-12 are grossly intact. Speech is clear. No facial asymmetry. No gross focal deficits to casual conversation. Psychiatric: Pleasant and cooperative with appropriate mood and affect. Objective Data Vital Signs Vital Signs: Vital Signs - 24 hr 09/19/23 15:56 09/19/23 21:11 09/20/23 08:51 Temperature 98.2 F 97.7 F 98.2 F Pulse Rate 74 84 80 Respiratory Rate 18 18 18 Blood Pressure 103/68 112/68 115/76 Pulse Oximetry 100 92 Oxygen Delivery Oxygen Flow Rate 09/20/23 08:00 09/20/23 14:06 Temperature 97.9 F Pulse Rate 65 Respiratory Rate 17 Blood Pressure 102/62 Pulse Oximetry 90 Oxygen Delivery Nasal Cannula Oxygen Flow Rate 1.5 Intake/Output Intake/Output:
[2023-09-20 22:05] VITALS: BP 102/66; PULSE 62; RESP 18; TEMP 36.7; O2SAT 100
[2023-09-21] VITALS (7 sets, daily range): BP systolic 134–141; BP diastolic 75–85; PULSE 73–88; RESP 18–20; TEMP 36.4–37; O2SAT 79–100
[2023-09-21] MEDS: TOBRAMYCIN SULFATE 0.3% OPHTH SOLN 5 ML 1 DROP EACH EYE ×5 (05:51→21:40)
[2023-09-21 07:22] LABS: Basophils Percent Auto 0.8 % (0.2-1.2); Eosinophils Absolute Auto 0.1 K/mm3 (0-0.3); Eosinophils Percent Auto 2.6 % (0-4.4); Hematocrit 46.1 % (37.0-47.0); Hemoglobin 13.6 g/dL (12.0-15.0); Immature Granulocyte Absolute 0.01 K/mm3 (0.00-0.031); Immature Granulocyte Percent A 0.2 % (0-0.5); Lymphocytes Absolute Auto 1.54 K/mm3 (0.9-3.2); Lymphocytes Percent Auto 30.6 % (18.3-44.2); Mean Corpuscular HGB Conc 29.5 g/dl (32-36); Mean Corpuscular Hemoglobin 25.9 pg (26-34); Mean Corpuscular Volume 87.6 fl (80-100); Mean Platelet Volume 10.8 fl (7.4-10.4); Monocytes Absolute Auto 0.6 K/mm3 (0.1-0.6); Monocytes Percent Auto 12.3 % (2.6-8.5); Neutrophils Absolute Auto 2.7 K/mm3 (1.3-6.7); Neutrophils Percent Auto 53.5 % (45.5-73.1); Platelet Count Result 233 k/mm3 (150-375); Red Blood Count 5.26 M/mm3 (4.2-5.4); Red Cell Distribution Width 16.6 % (11.5-14.5)
[2023-09-21 07:30] LABS: Alanine Aminotransferase 23 U/L (6-35); Albumin Level 3.1 g/dL (3.5-5.1); Alkaline Phosphatase 65 U/L (38-126); Anion Gap 3 mmol/L (8-16); Aspartate Amino Transferase 49 U/L (14-36); Bilirubin,Total 0.9 mg/dL (0.2-1.3); Blood Urea Nitrogen 14 mg/dL (7-17); Calcium 8.2 mg/dL (8.4-10.2); Carbon Dioxide 37 mmol/L (22-30); Chloride 94 mmol/L (98-107); Estimated CRCL calculation 26 ml/min; Estimated Glomerular Filt Rate 52; Glucose 84 mg/dL (65-110); Potassium 3.5 mmol/L (3.4-5.0); Sodium 134 mmol/L (137-145)
--- NOTE | 2023-09-21 09:03 | PM.CNOR ---
Assessment and Plan Assessment and plan (1) Instability of left wrist joint: Code(s): M25.332 - Other instability, left wrist Status: Acute Assessment and Plan: Left wrist injury. Initially splinted. We removed the splint today. She has minimal tenderness with motion. Is able to make a full fist and is neurovascularly intact. Radiographs show scapholunate widening which is chronic. Also moderate to severe degenerative changes. No fracture or acute changes noted. We have offered a wrist splint but she declined that. Will see how she does with therapy without the splint. We can still order it later if needed. Activity and weight-bearing as tolerated. We will continue to follow while in hospital. History of Present Illness HPI Consult date: 09/21/23 Requesting physician: Claudy Anderson APRN Chief complaint: Acute Resp Failure,New Onset CHF,Hypoxia,Wrist Ins Narrative: 83-year-old woman admitted through the emergency room for medical complications. She was at home, she uses a wheelchair for ambulation and has been started on a new osteoporosis medication. She became dizzy after the medication and fell out of her wheelchair catching left hand and wrist in the wheelchair. She had pain with movement of the wrist at the time of her evaluation in the emergency room. Radiographs showed instability changes. She was placed into a splint. I have been asked to see her for further evaluation. She states she has intermittent left wrist pain in the past. At this time has pain with motion. Denies numbness or tingling. Review of Systems Constitutional: Constitutional: Denies fatigue, Denies headache(s) and Reports weakness Eyes: Eyes: Reports no additional eye complaints and Denies eye discharge ENT: Reports system reviewed and no additional complaints, except as documented, Reports Normal hearing present, Denies dizziness, Denies headache(s) and Denies neck pain Cardiovascular: Cardiovascular: Reports no additional cardiovascular complaints, Denies chest pain, Denies syncope, Denies dyspnea and Denies dyspnea on exertion Respiratory: Respiratory: Reports no additional respiratory complaints, Denies dyspnea, Denies dyspnea on exertion and Denies wheezing Gastrointestinal: Gastrointestinal: Reports no additional gastrointestinal complaints, Denies abdominal pain, Denies diarrhea and Denies nausea Genitourinary: Genitourinary: Denies urinary frequency and Denies urinary urgency Musculoskeletal: Musculoskeletal: Denies neck pain Integumentary/Breasts: Skin/Breast: Reports system reviewed and no additional complaints, except as docu Neurologic: Reports Normal hearing present, Denies confusion, Denies dizziness, Denies syncope, Denies headache(s) and Reports weakness Psychiatric: Psychiatric: Reports no additional psychiatric complaints and Denies confusion Endocrine: Endocrine: Reports no additional endocrine complaints and Denies fatigue Hematologic/Lymphatic: Hematologic/Lymphatic: Reports no additional hematologic/lymphatic complaints Allergic/Immunologic: Allergic/Immunologic: Reports no additional allergic/immunologic complaints and Denies wheezing PMFSH Past Medical History Medical History Hyperlipidemia Hypertension Surgical History Surgical History History of bilateral cataract extraction 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 Family History Family History Father Alcoholism Mother Hypertension Sibling Colon cancer Other Diabetes mellitus Kidney disease Social History Social History Social History: Surrogate medical decision maker: Rashid Pena, son. Code status: Do not resuscitate. Smoking
[2023-09-21] MEDS: FAMOTIDINE 20 MG TABLET PO ×2 (09:12→21:40)
[2023-09-21] MEDS: dilTIAZem HCL CD 240 MG CAP.24HR PO (09:12)
[2023-09-21] MEDS: ROSUVASTATIN 10 MG TABLET PO (09:12)
[2023-09-21] MEDS: ENOXAPARIN 60 MG/0.6 ML SYRINGE 56 MG SUB-Q ×2 (09:13→21:40)
--- NOTE | 2023-09-21 09:38 | P.CDI_ITS ---
CDI Query Clarification Request CHF noted in the assessment and plan. Elevated BNP on 09/18/23 lab work. Presented with hypoxia, placed on Bipap 09/20/23 Echo noted EF 60-65% Lasix given in the ED. Please specify type and acuity of heart failure if known. * Acute * Chronic * Acute on Chronic * Unknown * Systolic * Diastolic * Combined Systolic and Diastolic * Unknown <Sheba Elizabeth RN - Last Filed: 09/21/23 09:41> Clarified Diagnosis Clarified Diagnosis: Diastolic <Franklyn Farrell MD - Last Filed: 09/21/23 14:13> Provider Comments Diastolic <Franklyn Farrell MD - Last Filed: 09/21/23 14:13>
--- NOTE | 2023-09-21 11:07 | PC.NURSE ---
On 09/21/23, the student, Vickie Garcia, provided care and completed [facility] documentation on this patient. I have reviewed the student's documentation and agree with the findings.
--- NOTE | 2023-09-21 15:57 | PM.DS ---
DS: Admitting Diagnosis Discharge Date 09/21/23 Admitting Diagnosis Fall Physical deconditioning DS: Discharge Diagnosis Discharge Diagnosis Plan Fall Physical deconditioning L/BKA. Did not bring prosthetic limb to demonstrate ambulatory skills Left hand pain. Improved Summary ? 1. Complete two-dimensional, color flow and Doppler transthoracic echocardiogram is performed. ? 2. Left ventricular chamber dimension is normal. ? 3. Left ventricular systolic function is normal, estimated at 60-65%. ? 4. The left ventricular diastolic function is grade I diastolic dysfunction. ? 5. E/e' 15 is elevated. ? 6. Right ventricular chamber dimension is severely enlarged. ? 7. Right ventricular systolic function is severely reduced and with abnormal TAPSE 1.4 cm. ? 8. Left atrial chamber dimension is mildly enlarged. ? 9. Right atrial chamber dimension is mildly enlarged. ? 10. There is mild aortic valve sclerosis. ? 11. There is mild to moderate tricuspid valve regurgitation. ? 12. Moderate pulmonary hypertension, estimated pulmonary arterial systolic pressure is 57 mmHg. Assessment and plan (1) Acute respiratory failure with hypoxia: ?Code(s): J96.01 - Acute respiratory failure with hypoxia ?Status:?Acute (2) Pulmonary embolism: ?Code(s): I26.99 - Other pulmonary embolism without acute cor pulmonale ?Status:?Acute (3) Syncope: ?Code(s): R55 - Syncope and collapse ?Status:?Acute (4) Electrolyte abnormality: ?Code(s): E87.8 - Other disorders of electrolyte and fluid balance, not elsewhere classified ?Status:?Acute (5) Instability of left wrist joint: ?Code(s): M25.332 - Other instability, left wrist ?Status:?Acute (6) Hypertension: ?Code(s): I10 - Essential (primary) hypertension ?Status:?Acute 11. CHF, diastolic, grade I diastolic dysfunction. EF 60-65% Plan The patient presented to the emergency department for evaluation after a fall and suspected syncopal episode last night as detailed in HPI. She awoke on the ground and assumes that she fell out of her wheelchair however does not recall falling and she is concerned that she may have passed out. She does not recall having a prodrome prior to this episode. She was hypoxic on arrival, initially felt to be related to congestive heart failure however chest CTA showed evidence of segmental pulmonary emboli. She has some mild wheezing on exam but nothing significant. She has since been weaned from BiPAP. She has been started on enoxaparin, 1 milligram/kilogram b.i.d.. Echocardiogram has been ordered as well as lower extremity venous Doppler ultrasounds to evaluate for DVT. EKG did not show any acute ST segment elevations or depressions. Imaging of the wrist showed possible instability and she has been placed in a splint and I believe Dr. Rodriguez was consulted. Initiate fall precautions. PT/OT consulted. Vital signs were reviewed and they are stable. Her home medications will be reviewed and resumed as appropriate. DS: Summary Hospital Course Reason for hospitalization: Fall; Physical deconditioning Hospital Course: This is an 83-year-old female with history of hypertension and hyperlipidemia who presented to the emergency department via EMS for evaluation after a fall and possible syncopal episode. The patient provides the following history. She tells me that she woke up in the middle the night on the floor and she presumes that she fell out of her wheelchair though she does not recall that happening. She is worried that she may have passed out and she goes on to say that she was recently started on Fosamax and she is wondering if that is what caused her to pass out. She lay on the floor until this morning when she was able to call her neighbor for help. On arrival to ED she was complaining of pain in the left wrist and she reports that her wheelchair was laying on that wrist when she came to after the fall. She was hypoxic on arrival and was i
[2023-09-22] VITALS (10 sets, daily range): BP systolic 114–152; BP diastolic 87–90; PULSE 60–79; RESP 16–18; TEMP 36.1–37; O2SAT 81–96
[2023-09-22 06:52] LABS: Basophils Percent Auto 0.8 % (0.2-1.2); Eosinophils Absolute Auto 0.1 K/mm3 (0-0.3); Hematocrit 48.5 % (37.0-47.0); Hemoglobin 14.4 g/dL (12.0-15.0); Immature Granulocyte Absolute 0.02 K/mm3 (0.00-0.031); Immature Granulocyte Percent A 0.4 % (0-0.5); Lymphocytes Absolute Auto 1.59 K/mm3 (0.9-3.2); Lymphocytes Percent Auto 31.6 % (18.3-44.2); Mean Corpuscular HGB Conc 29.7 g/dl (32-36); Mean Corpuscular Hemoglobin 25.9 pg (26-34); Mean Corpuscular Volume 87.1 fl (80-100); Mean Platelet Volume 10.5 fl (7.4-10.4); Monocytes Absolute Auto 0.6 K/mm3 (0.1-0.6); Monocytes Percent Auto 11.7 % (2.6-8.5); Neutrophils Absolute Auto 2.7 K/mm3 (1.3-6.7); Neutrophils Percent Auto 53.5 % (45.5-73.1); Platelet Count Result 258 k/mm3 (150-375); Red Blood Count 5.57 M/mm3 (4.2-5.4); Red Cell Distribution Width 16.6 % (11.5-14.5)
[2023-09-22 07:02] LABS: Alanine Aminotransferase 23 U/L (6-35); Albumin Level 3.4 g/dL (3.5-5.1); Alkaline Phosphatase 72 U/L (38-126); Anion Gap 1 mmol/L (8-16); Aspartate Amino Transferase 44 U/L (14-36); Bilirubin,Total 1.1 mg/dL (0.2-1.3); Blood Urea Nitrogen 9 mg/dL (7-17); Calcium 8.4 mg/dL (8.4-10.2); Carbon Dioxide 36 mmol/L (22-30); Chloride 95 mmol/L (98-107); Estimated CRCL calculation 31 ml/min; Estimated Glomerular Filt Rate > 60; Glucose 85 mg/dL (65-110); Potassium 3.6 mmol/L (3.4-5.0); Sodium 132 mmol/L (137-145)
[2023-09-22 08:54] LABS: Platelet Estimate Adequate (Adequate); Schistocytes None Seen (NORMAL)
[2023-09-22] MEDS: FAMOTIDINE 20 MG TABLET PO (09:41)
[2023-09-22] MEDS: ROSUVASTATIN 10 MG TABLET PO (09:41)
[2023-09-22] MEDS: dilTIAZem HCL CD 240 MG CAP.24HR PO (09:41)
[2023-09-22] MEDS: APIXABAN 5 MG TABLET 10 MG PO (09:41)
[2023-09-22] MEDS: TOBRAMYCIN SULFATE 0.3% OPHTH SOLN 5 ML 1 DROP EACH EYE ×3 (09:42→16:58)
--- NOTE | 2023-09-22 09:50 | HOMEO2EVAL ---
Evaluation was performed at [facility] Home Oxygen Evaluation RC: Home Oxygen (O2) Evaluation Start: 09/21/23 16:02 Freq: ONCE Status: Active Protocol: RPE Activity Type Activity Date Activity User E-sign Co-sign Detail Recorded Client Recorded Date Recorded By Document 09/22/23 09:05 [email or web address] [email or web address] 09/22/23 09:47 PKH Document 09/22/23 09:10 [email or web address] [email or web address] 09/22/23 09:47 PKH Document 09/22/23 09:15 [email or web address] [email or web address] 09/22/23 09:47 PKH Document 09/22/23 09:20 [email or web address] [email or web address] 09/22/23 09:47 PKH Document 09/22/23 09:25 [email or web address] 09/22/23 09:47 PKH Document 09/22/23 09:40 [email or web address] [email or web address] 09/22/23 09:47 PKH Document 09/22/23 09:45 [email or web address] [email or web address] 09/22/23 09:49 PKH Document 09/22/23 09:45 [email or web address] [email or web address] 09/22/23 09:47 PKH 09/22/23 09/22/23 09/22/23 09:05 09:10 09:15 Home O2 Evaluation [Oxygen] -Test Phase Resting Resting Resting -Oxygen Delivery Room Air Nasal Cannula Nasal Cannula -Oxygen Flow Rate (L/min) 1 2 [Pulse Oximetry] -Pulse Oximetry (90-100 %) 81 L 83 L 85 L [Pulse Rate] -Pulse Rate (60-100 beats/min) 79 78 79 [Charges] -Evaluation Charges 09/22/23 09/22/23 09/22/23 09:20 09:25 09:40 Home O2 Evaluation [Oxygen] -Test Phase Resting Resting Exercise -Oxygen Delivery Nasal Cannula Nasal Cannula Nasal Cannula -Oxygen Flow Rate (L/min) 3 4 4 [Pulse Oximetry] -Pulse Oximetry (90-100 %) 87 L 90 92 [Pulse Rate] -Pulse Rate (60-100 beats/min) 77 77 77 [Charges] -Evaluation Charges 09/22/23 09:45 Home O2 Evaluation [Oxygen] -Test Phase Resting -Oxygen Delivery Nasal Cannula -Oxygen Flow Rate (L/min) 4 [Pulse Oximetry] -Pulse Oximetry (90-100 %) 90 [Pulse Rate] -Pulse Rate (60-100 beats/min) 77 [Charges] -Evaluation Charges O2 Evaluation by Pulmonary
--- NOTE | 2023-09-22 09:51 | PCRCNOTE ---
Home O2 eval complete. Patient requires 4lpm at all times. RN notified. [facility] called. Tank taken to patients room.
--- NOTE | 2023-09-22 16:01 | PM.IMPN ---
Progress Note: A&P Assessment and Plan (1) Pulmonary embolism: Code(s): I26.99 - Other pulmonary embolism without acute cor pulmonale Status: Acute Assessment and Plan: Acute, Severe Will DC on Eliquis (2) Acute respiratory failure with hypoxia: Code(s): J96.01 - Acute respiratory failure with hypoxia Status: Acute Assessment and Plan: Acute, Severe Will discharge on 4L NC oxygen (3) Congestive heart failure: Qualifiers: Heart failure chronicity: acute Heart failure type: unspecified Qualified Code(s): I50.9 - Heart failure, unspecified Code(s): I50.9 - Heart failure, unspecified Status: Acute Assessment and Plan: Diastolic (4) Instability of left wrist joint: Code(s): M25.332 - Other instability, left wrist Status: Acute Assessment and Plan: Acute, Moderate Improved Plan Fall Physical deconditioning L/BKA. Did not bring prosthetic limb to demonstrate ambulatory skills Left hand pain. Improved Acute PE Summary ? 1. Complete two-dimensional, color flow and Doppler transthoracic echocardiogram is performed. ? 2. Left ventricular chamber dimension is normal. ? 3. Left ventricular systolic function is normal, estimated at 60-65%. ? 4. The left ventricular diastolic function is grade I diastolic dysfunction. ? 5. E/e' 15 is elevated. ? 6. Right ventricular chamber dimension is severely enlarged. ? 7. Right ventricular systolic function is severely reduced and with abnormal TAPSE 1.4 cm. ? 8. Left atrial chamber dimension is mildly enlarged. ? 9. Right atrial chamber dimension is mildly enlarged. ? 10. There is mild aortic valve sclerosis. ? 11. There is mild to moderate tricuspid valve regurgitation. ? 12. Moderate pulmonary hypertension, estimated pulmonary arterial systolic pressure is 57 mmHg. Assessment and plan (1) Acute respiratory failure with hypoxia: ?Code(s): J96.01 - Acute respiratory failure with hypoxia ?Status:?Acute (2) Pulmonary embolism: ?Code(s): I26.99 - Other pulmonary embolism without acute cor pulmonale ?Status:?Acute (3) Syncope: ?Code(s): R55 - Syncope and collapse ?Status:?Acute (4) Electrolyte abnormality: ?Code(s): E87.8 - Other disorders of electrolyte and fluid balance, not elsewhere classified ?Status:?Acute (5) Instability of left wrist joint: ?Code(s): M25.332 - Other instability, left wrist ?Status:?Acute (6) Hypertension: ?Code(s): I10 - Essential (primary) hypertension ?Status:?Acute 11. CHF, diastolic, grade I diastolic dysfunction. EF 60-65% Plan The patient presented to the emergency department for evaluation after a fall and suspected syncopal episode last night as detailed in HPI. She awoke on the ground and assumes that she fell out of her wheelchair however does not recall falling and she is concerned that she may have passed out. She does not recall having a prodrome prior to this episode. She was hypoxic on arrival, initially felt to be related to congestive heart failure however chest CTA showed evidence of segmental pulmonary emboli. She has some mild wheezing on exam but nothing significant. She has since been weaned from BiPAP. She has been started on enoxaparin, 1 milligram/kilogram b.i.d.. Echocardiogram has been ordered as well as lower extremity venous Doppler ultrasounds to evaluate for DVT. EKG did not show any acute ST segment elevations or depressions. Imaging of the wrist showed possible instability and she has been placed in a splint and I believe Dr. Rodriguez was consulted. Initiate fall precautions. PT/OT consulted. Vital signs were reviewed and they are stable. Her home medications will be reviewed and resumed as appropriate. Time Spent With Patient Time with patient: 25 - 35 minutes Subjective Date/time seen: 09/22/23 16:01 Interval history: Seen and examined; Initially refusing to go home on oxygen therapy,
--- NOTE | 2023-09-22 17:00 | PC.NURSE ---
Spoke to patient the importance of wearing oxygen. Instructed not to smoke while wearing oxygen.Patient verbalized understanding.
== END 2023-09-22 17:25 | disposition home health service (06) | DRG 175 ==
LOC: ANHED 11:26 → ANHIMU 12:19 → ANH3MEDSUR 09-19 20:03
PROVIDERS: Physician Assistant; Admitting Provider Internal Medicine; Emergency Provider Nurse Practitioner Family; PCP Internal Medicine; Visit Provider Internal Medicine
DX: I26.99 Other pulmonary embolism without acute cor pulmonale (principal); J96.01 Acute respiratory failure with hypoxia; E87.1 Hypo-osmolality and hyponatremia; I24.89 Other forms of acute ischemic heart disease; N17.9 Acute kidney failure, unspecified; I50.32 Chronic diastolic (congestive) heart failure; I11.0 Hypertensive heart disease with heart failure; R55 Syncope and collapse; Z20.822 Contact with and (suspected) exposure to COVID-19; E78.5 Hyperlipidemia, unspecified; E87.6 Hypokalemia; M25.332 Other instability, left wrist; M15.9 Polyosteoarthritis, unspecified; W05.0XXA Fall from non-moving wheelchair, initial encounter; Z66 Do not resuscitate; Z87.891 Personal history of nicotine dependence; Z89.512 Acquired absence of left leg below knee; Z98.42 Cataract extraction status, left eye; Z98.41 Cataract extraction status, right eye
CPT/HCPCS: 36415; 36600; 70450; 71045; 71275; 73110; 73130; 80048; 80053; 81001; 82140; 82550; 82805; 83605; 83735; 83880; 84484; 85025; 85027; 85380; 85610; 85730; 87637; 93005; 93306; 93880; 93970; 94618; 94667; 96365; 96375; 97161; 97165; 99285; A9270; J1650; J1940; J3480; J7040; Q9967

== ENCOUNTER 2023-11-06 17:25 | Inpatient (IN) | payer MEDICARE, SELFPAY ==
[2023-11-06] VITALS (17 sets, daily range): BP systolic 100–160; BP diastolic 80–148; PULSE 91–108; RESP 21–33; TEMP 36.3–36.6; O2SAT 86–100; BMI 23.7
--- NOTE | ~2023-11-06 | XR_ITS ---
EXAMINATION: XR chest 1V portable INDICATION: Hypoxia TECHNIQUE: Portable AP chest at 1047 hours COMPARISON: 11/09/2023 FINDINGS: Small pleural effusions persist without significant change. There are stable bibasilar airs pace opacities. There is no pneumothorax. Cardiomegaly is noted. There is a healed fracture of the pr oximal left humerus. IMPRESSION: 1. Stable bibasilar airspace opacities, consistent with atelectasis versus pneumonia. 2. Small stable pleural effusions. 3. Cardiomegaly. Reviewed, dictated and finalized at location B. D DONOR RECRUITER IMPRESSION: 1. Stable bibasilar airspace opacities, consistent with atelectasis versus pneu monia. 2. Small stable pleural effusions. 3. Cardiomegaly.
--- NOTE | ~2023-11-06 | XR_ITS ---
Portable chest x-ray Comparison: 11/10/2023 Clinical History: Covid Findings: There are low lung volumes with probable vascular crowding and mild bibasilar atelectatic change. Cardiomediastinal silhouette is stable. Bones and soft tissues are unremarkable. Impression: Low lung volumes with probable vascular crowding and mild bibasilar atelectatic change. Reviewed, dictated and finalized at location . ET COUNTER Impression: Low lung volumes with probable vascular crowding and mild bibasilar atelectatic change.
--- NOTE | ~2023-11-06 | XR_ITS ---
EXAMINATION: XR chest 1V portable DATE: 11/09/2023 05:49 INDICATION: Congestive heart failure. TECHNIQUE: A single frontal view of the chest was obtained. COMPARISON: Chest view 11/06/2023, chest CT 12/04/2021 FINDINGS: The patient is rotated to her left. There are lucencies in the lungs, consistent with emphy sema. There are airspace opacities at the lung bases. There are small pleural effusions. No pneumotho rax. Cardiomegaly is noted. There is an old healed fracture of proximal left humerus. IMPRESSION: 1. Stable airspace opacities at the lung bases, consistent with atelectasis versus pneumonia. 2. Stable small pleural effusions. 3. Emphysema. 4. Cardiomegaly. Reviewed, dictated and finalized at location E. TS BROADCASTING INTERNSHIP IMPRESSION: 1. Stable airspace opacities at the lung bases, consistent with atelectasis jessie cruzito pneumonia. 2. Stable small pleural effusions. 3. Emphysema. 4. Cardiomegaly.
--- NOTE | ~2023-11-06 | CT_ITS ---
EXAMINATION: CTA chest PE protocol DATE: 11/12/2023 14:04 INDICATION: Shortness of breath TECHNIQUE: Computed tomography angiography (CTA) of the chest was performed with 100 mL Omnipaque-350 intravenous contrast timed to evaluate the pulmonary arteries. Coronal maximum intensity projection 3D-reconstructions were created by the technologist. The dose-length product (DLP) was 187.59 mGy-cm. Automated exposure control and iterative reconstruction technique were employed. COMPARISON: 09/18/2023 FINDINGS: The pulmonary arteries are well-opacified. Respiratory motion significantly limits the exam ination. No central pulmonary embolus is identified. The previously described right lower lobe emboli are not well demonstrated which could be due to respiratory motion. There has been interval collapse of the left lower lobe which appears to be due to mucous plugging. There is severe emphysema. There are airspace opacities of the right upper lobe. There is atelectasis and pneumonia of the right lower lobe. There is complete atelectasis of the right middle lobe. Cardiomegaly is noted. There is mild b ilateral hilar lymphadenopathy, likely reactive. The stomach is distended. IMPRESSION: 1. No definite pulmonary embolus identified, sensitivity limited by respiratory motion. 2. Complete atelectasis of the right middle lobe and left lower lobe. 3. Cardiomegaly. 4. Airspace opacities of the right upper and lower lobes, consistent with atelectasis an/or pneumonia . Reviewed, dictated and finalized at location B. ON RAILS WEB DEVELOPER IMPRESSION: 1. No definite pulmonary embolus identified, sensitivity limited by respiratory motion. 2. Complete atelectasis of the right middle lobe and left lower lobe. 3. Cardiomegaly. 4. Airspace opacities of the right upper and lower lobes, consistent with atele ctasis an/or pneumonia.
--- NOTE | ~2023-11-06 | XR_ITS ---
EXAMINATION: XR chest 1V portable Exam Date/Time: 11/06/2023 17:55 PRODUCT DEVELOPMENT TECHNICIAN HISTORY: SHORT OF BREATH HX COPD Comparison: 09/18/2023. RESULT: Lines, tubes, and devices: None. Lungs and pleura: Mild diffuse reticular opacities. Streaky bibasilar opacities. Cardiomediastinal silhouette: Stable. Other: No acute osseous or upper abdominal finding. IMPRESSION: Mild interstitial edema/senescent change, with likely bibasilar scar/atelectasis. Trace right pleural effusion. Reviewed, dictated and finalized at location K. UCT DEVELOPMENT TECHNICIAN IMPRESSION: Mild interstitial edema/senescent change, with likely bibasilar scar/atelectasi s. Trace right pleural effusion.
--- NOTE | 2023-11-06 17:27 | ECG_ITS ---
Measurements Intervals Rosenberg Rate: 106 P: 33 OK: 184 QRS: 93 QRSD: 82 T: 42 QT: 309 QTc: 412 Interpretive Statements SINUS TACHYCARDIA POSSIBLE LEFT ATRIAL ENLARGEMENT CONSIDER ANTERIOR INFARCT, AGE INDETERMINATE BORDERLINE T WAVE ABNORMALITY- INF/LAT LEADS BASELINE ARTIFACT- I, II, AVR, AVL, AVF, V1-V4 ABNORMAL ECG COMPARED TO ECG 09/18/2023 09:11:04 SINUS TACHYCARDIA NOW PRESENT Electronically Signed On 11-06-2023 20:35:38 LOAN CLERK by Frank Earl D.O.
--- NOTE | 2023-11-06 17:46 | ED.GENADULT ---
HPI - General Adult General Chief complaint: Shortness of Breath/Dyspnea <Ric Rign PA-C - Last Filed: 11/07/23 00:45> Stated complaint: dyspnea <LORNA Arita Last Filed: 11/07/23 00:45> Time Seen by Provider: 11/06/23 17:32 <LORNA Arita Last Filed: 11/07/23 00:45> Source: patient <LORNA Arita Last Filed: 11/07/23 00:45> Mode of arrival: ambulatory <LORNA Arita Last Filed: 11/07/23 00:45> Limitations: no limitations <LORNA Arita Last Filed: 11/07/23 00:45> History of Present Illness HPI narrative: This is an 83-year-old female with PMH of AFib, COPD, PE who presents to the ED via EMS with chief complaint of shortness of breath and cough for the past 2 days. Reports increased cough and work of breathing. She lives at home and caregiver comes by often. They noted her oxygen was in the 70s in the ambulance and she was increased to 6 L, increased sats to 90's. She received 2 DuoNebs and Solu-Medrol EN route and feels this helped. Denies chest pain, leg swelling, headache, syncope. Anticoagulated on Eliquis <LORNA Arita Last Filed: 11/07/23 00:45> Related Data Home medications: Home Medications Medication Instructions Recorded Confirmed rosuvastatin 10 mg tablet 10 mg PO DAILY 11/27/21 11/06/23 tobramycin 0.3 % eye drops 1 drp EACH EYE Q4H 11/27/21 11/06/23 alendronate 70 mg tablet 70 mg PO WEEKLY 09/18/23 11/06/23 diltiazem HCl 240 mg capsule,24 240 mg PO DAILY 09/18/23 11/06/23 hr,extended release calcium carbonate 600 mg-vitamin 1 tablet PO DAILY 11/06/23 11/06/23 D3 10 mcg (400 unit) tablet (Calcium 600 + D(3)) <LORNA Arita Last Filed: 11/07/23 00:45> Allergies/adverse reactions: Allergies Allergy/AdvReac Type Severity Reaction Status Date / Time Sulfa (Sulfonamide Allergy Severe ITCHING, Verified 11/06/23 18:44 Antibiotics) RASH quinine Allergy Mild RINGING IN Verified 11/06/23 18:44 EARS, SLURRED SPEECH, DROOPING EYE LID pravastatin AdvReac Intermediate rash Verified 11/06/23 18:44 ezetimibe AdvReac rash Verified 11/06/23 18:44 [From Vytorin 10-10] Quinidine-Quinine Analogues AdvReac shortness Verified 11/06/23 18:44 (Cincho of breath, slurred speech simvastatin AdvReac rash Verified 11/06/23 18:44 [From Vytorin 10-10] <Ric Ring PA-C - Last Filed: 11/07/23 00:45> Review of Systems Review of Systems: All systems as dictated in HPI <Ric Ring PA-C - Last Filed: 11/07/23 00:45> [facility] Past Medical History Medical History: Medical History Hyperlipidemia Hypertension <Ric Ring PA-C - Last Filed: 11/07/23 00:45> Surgical History Surgical History: Surgical History History of bilateral cataract extraction 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 <LORNA Arita Last Filed: 11/07/23 00:45> Family History Family History: Family History Father Alcoholism Mother Hypertension Sibling Colon cancer Other Diabetes mellitus Kidney disease <LORNA Arita Last Filed: 11/07/23 00:45> Social History Social History: Social History Social History: Surrogate medical decision maker: Rashid Pena, son. Code status: Do not resuscitate. Smoking packs per day: 0.5 Smoking cigarettes per day: 10.0 Years smoked: 50 Smoking pack-years: 25.00 Smoking status: Light tobacco smoker Tobacco type: cigarettes Second hand tobacco smoke exposure: No Alcohol intake: former Substance use: never Substance use type: does not use Do You Feel Safe in your Home?
--- NOTE | 2023-11-06 18:36 | PCRCNOTE ---
2 attempts were made to draw an ABG; Pt. moved both times and refused to be stuck anymore. Provider notified.
[2023-11-06 18:39] LABS: Basophils Percent Auto 0.2 % (0.2-1.2); Eosinophils Percent Auto 0.2 % (0-4.4); Hematocrit 47.7 % (37.0-47.0); Immature Granulocyte Absolute 0.01 K/mm3 (0.00-0.031); Immature Granulocyte Percent A 0.2 % (0-0.5); Lymphocytes Percent Auto 17.8 % (18.3-44.2); Mean Corpuscular HGB Conc 29.4 g/dl (32-36); Mean Corpuscular Hemoglobin 25.9 pg (26-34); Mean Corpuscular Volume 88.2 fl (80-100); Mean Platelet Volume 10.6 fl (7.4-10.4); Monocytes Absolute Auto 0.2 K/mm3 (0.1-0.6); Monocytes Percent Auto 3.8 % (2.6-8.5); Neutrophils Absolute Auto 3.9 K/mm3 (1.3-6.7); Neutrophils Percent Auto 77.8 % (45.5-73.1); Platelet Count Result 254 k/mm3 (150-375); Red Blood Count 5.41 M/mm3 (4.2-5.4); Red Cell Distribution Width 16.9 % (11.5-14.5); White Blood Count 5.1 K/mm3 (4.5-10.0)
[2023-11-06 18:51] LABS: Alanine Aminotransferase 24 U/L (6-35); Albumin Level 3.6 g/dL (3.5-5.1); Alkaline Phosphatase 76 U/L (38-126); Anion Gap 5 mmol/L (8-16); Aspartate Amino Transferase 36 U/L (14-36); Bilirubin,Total 1.2 mg/dL (0.2-1.3); Blood Urea Nitrogen 26 mg/dL (7-17); Calcium 8.9 mg/dL (8.4-10.2); Carbon Dioxide 33 mmol/L (22-30); Chloride 100 mmol/L (98-107); Estimated Glomerular Filt Rate 48; Glucose 97 mg/dL (65-110); Potassium 3.6 mmol/L (3.4-5.0); Sodium 138 mmol/L (137-145)
[2023-11-06 18:58] LABS: Anisocytosis 1+ (NORMAL); Hypochromasia 1+ (NORMAL); Platelet Estimate Adequate (Adequate); Poikilocytosis 1+ (NORMAL); Schistocytes None Seen (NORMAL)
[2023-11-06 19:16] LABS: Influenza A QL RT-PCR Negative (Negative); Influenza B QL RT-PCR Negative (Negative); RSV RNA, RT-PCR Negative (Negative); SARS-CoV-2 RNA PCR Positive (Negative)
[2023-11-06] MEDS: AZITHROMYCIN 500 MG/NS 250 ML 500 MG/250 ML BAG 250 MG IVPB (20:24)
[2023-11-06] MEDS: dexAMETHasone SOD PHOS INJ 10 MG/ML 1 ML VIAL 6 MG IV PUSH (20:24)
[2023-11-06 20:34] LABS: NT Pro B Type Natriuretic Pept > 30000 pg/mL (19.9-100)
--- NOTE | 2023-11-06 21:20 | PC.NURSE ---
pt continually keeps taking bipap masks off her face. this rn explained and educated pt on benefits of wearing bipap mask. pt states, I do not want to wear it, I am doing fine . This rn educated pt that her oxygen saturation without the mask was below normal limits. pt still continued to remove mask.
[2023-11-06] MEDS: REMDESIVIR 200 MG/NS 250 ML 200 MG/250 ML BAG 250 MG IVPB (21:31)
[2023-11-06 22:13] LABS: Procalcitonin 0.3 ng/mL
--- NOTE | 2023-11-06 22:20 | ADMGEN ---
This patient, Dorene Pathak, was admitted to IMU Room 231-01. Patient/family oriented to hospital policies and general routines including ID bracelet, bed and alarms, visiting hours, pain management, procedures, bathroom and other care routines, personal items, smoking policy, room service/diet, and visiting hours. Information on how to activate the Rapid Response Team has been discussed. Patient/Family are encouraged to report perceived risks to care and to ask questions if they do not understand what they are told or what they should do.
--- NOTE | 2023-11-06 23:15 | PM.IMHP ---
H&P: HPI History of Present Illness Date/Time: 11/06/23 23:15 Chief Complaint: Shortness of breath Narrative: This is a 83-year-old female with a history of current tobacco abuse, PE on Eliquis with chronic respiratory failure on 4 L nasal cannula continuous at home, hypertension, hyperlipidemia, status post left BKA, CKD, heart failure preserved ejection fraction (EF 60-65% in 09/2023), who presents from home with complaints of shortness of breath. The patient is typically on 4 L and was as low in the 70s via ground transport and she was increased to 6 L. she also received 2 DuoNebs and Solu-Medrol was placed on BiPAP for increased work of breathing. The patient reports she feels much better after these therapies. She reports cough with sick green yellow sputum production but this is the usual for her. She reports she has been taking all of her medications and has never been diagnosed with COPD or asthma. She denies fevers or chills or chest pain. Found to be COVID positive in ER. Review of Systems Review of Systems: All systems reviewed & are unremarkable except as noted in HPI and below PMFSH Past Medical History Medical History Hyperlipidemia Hypertension Surgical History Surgical History History of bilateral cataract extraction 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 Family History Family History Father Alcoholism Mother Hypertension Sibling Colon cancer Other Diabetes mellitus Kidney disease Social History Social History Social History: Surrogate medical decision maker: Rashid Pena, son. Code status: Do not resuscitate. Smoking packs per day: 0.5 Smoking cigarettes per day: 10.0 Years smoked: 50 Smoking pack-years: 25.00 Smoking status: Current every day smoker Tobacco type: cigarettes Second hand tobacco smoke exposure: No Alcohol intake: never Substance use: never Substance use type: does not use Do You Feel Safe in your Home?: Yes Lack of Transportation: No Lack of Food: Never True Current Housing: I Have Housing Concerned About Future Housing: No Difficulty Paying Gas/Electric Bills: No Difficulty Paying for Meds: No Currently Unemployed: No Education: Associate Degree Difficulty w/ Childcare or Family Care: No Living arrangements: alone Additional living arrangements comments: Lives alone. Has 3 children. 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 Spiritual care concerns: No Agree to blood products: Yes Meds Home Medications and Allergies Home Medications Medication Instructions Recorded Confirmed Type rosuvastatin 10 mg tablet 10 mg PO DAILY 11/27/21 11/06/23 History tobramycin 0.3 % eye drops 1 drp EACH EYE Q4H 11/27/21 11/06/23 History famotidine 20 mg tablet 20 mg PO Q12HR #60 tabs 12/11/21 11/06/23 Rx alendronate 70 mg tablet 70 mg PO WEEKLY 09/18/23 11/06/23 History diltiazem HCl 240 mg capsule,24 240 mg PO DAILY 09/18/23 11/06/23 History hr,extended release apixaban 5 mg tablet (Eliquis) 5 mg PO Q12HR #360 tabs 09/22/23 11/06/23 Rx calcium carbonate 600 mg-vitamin 1 tablet PO DAILY 11/06/23 11/06/23 History D3 10 mcg (400 unit) tablet (Calcium 600 + D(3)) Allergies Allergy/AdvReac Type Severity Reaction Status Date / Time Sulfa (Sulfonamide Allergy Severe ITCHING, Verified 11/06/23 18:44 Antibiotics) RASH quinine Allergy Mild RINGING IN Verified 11/06/23 18:44 EARS, SLURRED SPEECH, DROOPING EYE LID pravastatin AdvReac Intermediate rash Verified 11/06/23 18:44 ezetimibe AdvReac rash Verified 11/06/23 18:44 [From Vytorin 10-10]
[2023-11-07] VITALS (31 sets, daily range): BP systolic 124–182; BP diastolic 68–92; PULSE 79–100; RESP 20–35; TEMP 36.2–36.8; O2SAT 3–100
[2023-11-07] MEDS: IPRATROPIUM 0.5 MG/ALBUTEROL SULFATE 2.5 MG AMPUL.NEB 3 ML INHALATION ×4 (03:12→19:40)
[2023-11-07 04:33] LABS: Basophils Percent Auto 0.7 % (0.2-1.2); Hematocrit 47.8 % (37.0-47.0); Hemoglobin 13.8 g/dL (12.0-15.0); Immature Granulocyte Absolute 0.03 K/mm3 (0.00-0.031); Lymphocytes Absolute Auto 0.63 K/mm3 (0.9-3.2); Lymphocytes Percent Auto 20.6 % (18.3-44.2); Mean Corpuscular HGB Conc 28.9 g/dl (32-36); Mean Corpuscular Hemoglobin 25.9 pg (26-34); Mean Corpuscular Volume 89.8 fl (80-100); Mean Platelet Volume 10.5 fl (7.4-10.4); Monocytes Percent Auto 0.7 % (2.6-8.5); Neutrophils Absolute Auto 2.4 K/mm3 (1.3-6.7); Platelet Count Result 227 k/mm3 (150-375); Red Blood Count 5.32 M/mm3 (4.2-5.4); Red Cell Distribution Width 17.2 % (11.5-14.5); White Blood Count 3.1 K/mm3 (4.5-10.0)
[2023-11-07 04:40] LABS: Anion Gap 8 mmol/L (8-16); Blood Urea Nitrogen 26 mg/dL (7-17); Calcium 8.1 mg/dL (8.4-10.2); Carbon Dioxide 29 mmol/L (22-30); Chloride 102 mmol/L (98-107); Estimated CRCL calculation 24 ml/min; Estimated Glomerular Filt Rate 48; Glucose 131 mg/dL (65-110); Magnesium 2.2 mg/dL (1.6-2.3); Potassium 3.8 mmol/L (3.4-5.0); Sodium 139 mmol/L (137-145)
[2023-11-07 04:49] LABS: Hypochromasia 1+ (NORMAL); Platelet Estimate Adequate (Adequate); Poikilocytosis 1+ (NORMAL)
[2023-11-07 04:50] LABS: Anisocytosis 1+ (NORMAL)
[2023-11-07 04:51] LABS: Schistocytes None Seen (NORMAL)
[2023-11-07] MEDS: TOBRAMYCIN SULFATE 0.3% OPHTH SOLN 5 ML 1 DROP EACH EYE ×4 (09:05→21:12)
[2023-11-07] MEDS: dexAMETHasone 2 MG TABLET 6 MG PO (09:06)
[2023-11-07] MEDS: ROSUVASTATIN 10 MG TABLET PO (09:06)
[2023-11-07] MEDS: dilTIAZem HCL CD 240 MG CAP.24HR PO (09:07)
[2023-11-07] MEDS: FAMOTIDINE 20 MG TABLET PO ×2 (09:07→21:11)
[2023-11-07] MEDS: APIXABAN 5 MG TABLET PO ×2 (09:07→21:11)
--- NOTE | 2023-11-07 12:53 | PC.NURSE ---
SPO2 79% while on 10L O2. at the Bedside. V.O.R.B. 1.) NPO except meds with sip. Pt placed back on Bipap et recovered
--- NOTE | 2023-11-07 14:25 | PM.IMPN ---
Progress Note: A&P Assessment and Plan (1) Acute and chronic respiratory failure: Code(s): J96.20 - Acute and chronic respiratory failure, unspecified whether with hypoxia or hypercapnia Status: Acute Assessment and Plan: Patient brought in from home for shortness of breath and noted to have SpO2 70's. Normally on 4L NC. She refused ABGs. CXR showing mild interstitial edema with bibasilar scarring/atelectasis and trace right pleural effusion. COVID positive. Influenza, RSV PCR negative. Treated with Solu-Medrol and bronchodilators. BiPAP started. Etiology 2nd to COVID and COPD exacerbation. Consider bacterial PNA and/or CHF. Doubt PE since on Eliquis Switched to Decadron. Remains on BiPAP. Came off to eat but SpO2 dropped to 70's on 10L. Continue BiPAP. Wean off as toelrated. Consider aspiration; order speech therapy evaluation (2) COVID-19: Code(s): U07.1 - COVID-19 Status: Acute Assessment and Plan: COVID positive on admission. Started on Remdesivir and Decadron. Given the severity, would add baricitinib; side effects discussed with patient and she is agreeable to start. Spoke with son and discussed with him about side effects as well including increasing risk of infection and increase mortality. He was agreeable as well to start baricitinib Contineu Decadron and Remdesivir Start baricitinib. wean O2 as toelrated. Continue bronchodlators. (3) Congestive heart failure: Qualifiers: Heart failure chronicity: acute Heart failure type: unspecified Qualified Code(s): I50.9 - Heart failure, unspecified Code(s): I50.9 - Heart failure, unspecified Status: Acute Assessment and Plan: Patient with known diastolic CHF. Echo showing EF 60-65%, Grade I diastolic dysfxn, RV dilation and reduced fxn, moderate TR and moderate pulm HTN. Probably with right sided failure as well. CXR showing mild interstital edema, BNP >30K. No Troponin drawn. EKG reviewed showing sinus tachycardia (106) and minor T wave changes in the high lateral leads Concern for acute on chronic diastolic CHF Lasix IV. Monitor UOP, renal function and BP. (4) CKD (chronic kidney disease): Code(s): N18.9 - Chronic kidney disease, unspecified Status: Acute Assessment and Plan: Patient with normal renal function in 2021 but Cr 1-1.3 in September 2023 Cr 1.3 on admission felt to be at baseline Monitor renal function, UOP and electrolytes. (5) Pulmonary embolism: Code(s): I26.99 - Other pulmonary embolism without acute cor pulmonale Status: Acute Assessment and Plan: Hx of PE. Currently on Eliquis. Continue the same (6) Tobacco abuse: Code(s): Z72.0 - Tobacco use Status: Chronic Assessment and Plan: Patient education about the benefits of smoking cessation Plan GI prophylaxis: Continue home Pepcid DVT prophylaxis: On home Eliquis Code Status: DNR Subjective Date/time seen: 11/07/23 14:25 Interval history: 83yo female with HTN, tobacco abuse, PE on Eliquis, chronic respiratory failure (4L), diastolic CHF and CKD here for shortness of breath.? She feels well. SOB better. Complains of mid back pain which is new. no dysuria or hemturia. No trauma. Exam Narrative: AF 98.2 124/68 97 35 95% bipap Gen - NARD Chest - distant BS, no wheezing CV - RRR S1/S2. Tele showing PVCs Abd - Soft, NT/ND, Positive BS Back - bilateral R>L CVA tenderness Ext - No RLE pedal edema. Left BKA Neuro - Alert and oriented x3 (not year). Nonfocal exam. Psych - Nml mood and affect Skin - Warm and dry Objective Data Vital Signs Vital Signs: Vital Signs - 24 hr 11/06/23 17:21 11/06/23 18:00 11/06/23 17:30 Temperature 97.9 F Pulse Rate 108 H 100 Respiratory Rate 26 H 26 H Blood Pressure 148/91 H 145/93 H Pulse Oximetry 86 L 86 L 86 L Oxygen Delivery Nasal Cannula Nasal Cannula Oxygen Flow Rate 6 6 Fraction of
[2023-11-07] MEDS: FUROSEMIDE INJ 40 MG/4 ML VIAL 20 MG IV PUSH (18:10)
[2023-11-07] MEDS: BARICITINIB 2 MG TABLET PO (18:12)
[2023-11-07 19:02] LABS: Glucose Point of Care 154 mg/dl (65-105)
[2023-11-07] MEDS: REMDESIVIR 100 MG/NS 250 ML 100 MG/250 ML BAG 250 MG IVPB (21:11)
[2023-11-08] VITALS (25 sets, daily range): BP systolic 92–137; BP diastolic 60–83; PULSE 72–132; RESP 20–36; TEMP 36.1–36.4; O2SAT 92–97; BMI 21.6
[2023-11-08] MEDS: TOBRAMYCIN SULFATE 0.3% OPHTH SOLN 5 ML 1 DROP EACH EYE ×6 (00:45→21:42)
[2023-11-08] MEDS: IPRATROPIUM 0.5 MG/ALBUTEROL SULFATE 2.5 MG AMPUL.NEB 3 ML INHALATION ×4 (01:05→20:40)
[2023-11-08 04:55] LABS: Basophils Percent Auto 0.2 % (0.2-1.2); Hematocrit 50.6 % (37.0-47.0); Immature Granulocyte Absolute 0.02 K/mm3 (0.00-0.031); Immature Granulocyte Percent A 0.4 % (0-0.5); Lymphocytes Absolute Auto 0.72 K/mm3 (0.9-3.2); Lymphocytes Percent Auto 13.6 % (18.3-44.2); Mean Corpuscular HGB Conc 27.7 g/dl (32-36); Mean Corpuscular Hemoglobin 25.5 pg (26-34); Mean Corpuscular Volume 92.3 fl (80-100); Mean Platelet Volume 10.5 fl (7.4-10.4); Monocytes Absolute Auto 0.3 K/mm3 (0.1-0.6); Monocytes Percent Auto 5.9 % (2.6-8.5); Neutrophils Absolute Auto 4.2 K/mm3 (1.3-6.7); Neutrophils Percent Auto 79.9 % (45.5-73.1); Platelet Count Result 210 k/mm3 (150-375); Red Blood Count 5.48 M/mm3 (4.2-5.4); Red Cell Distribution Width 17.2 % (11.5-14.5); White Blood Count 5.3 K/mm3 (4.5-10.0)
[2023-11-08 05:15] LABS: INR 2.4; Prothrombin Time 27.5 Seconds (11.1-14.7)
[2023-11-08 05:22] LABS: Alanine Aminotransferase 19 U/L (6-35); Albumin Level 3.3 g/dL (3.5-5.1); Alkaline Phosphatase 48 U/L (38-126); Anion Gap 3 mmol/L (8-16); Aspartate Amino Transferase 32 U/L (14-36); Blood Urea Nitrogen 35 mg/dL (7-17); Calcium 8.1 mg/dL (8.4-10.2); Carbon Dioxide 37 mmol/L (22-30); Chloride 98 mmol/L (98-107); Estimated CRCL calculation 28 ml/min; Estimated Glomerular Filt Rate 58; Glucose 138 mg/dL (65-110); Potassium 4.2 mmol/L (3.4-5.0); Sodium 138 mmol/L (137-145)
[2023-11-08 05:23] LABS: Platelet Estimate Adequate (Adequate)
[2023-11-08 05:24] LABS: Anisocytosis 1+ (NORMAL); Poikilocytosis 1+ (NORMAL); Schistocytes None Seen (NORMAL)
[2023-11-08 07:59] LABS: Alveolar/Arterial O2 Gradient 293.2 mmHg; Base Excess ABG 8.5 mEq/l (+/-2.0); Fractional Inspired Oxygen 60 %; Oxygen Content ABG 19.4 %vol (16.0-22.0); Oxygen Saturation ABG 92.7 % (95.0-100.0); Oxyhemoglobin 91.6 % THb (90.0-100.0); PO2 ABG 67.4 mmHg (80.0-100.0); PO2 FiO2 Ratio Arterial Blood 1.12 %; Total Hemoglobin 15.1 g/dL (12.0-18.0); pH ABG 7.388 (7.350-7.450)
[2023-11-08 08:01] LABS: Device BIPAP; Modified Allen's Test Pass; PCO2 ABG 61.1 mmHg (35.0-45.0); Site Drawn RIGHT RADIAL
[2023-11-08 08:02] LABS: Expiratory Pressure 6 cmH2O; Inspiratory Pressure 10 cmH2O
[2023-11-08] MEDS: FUROSEMIDE INJ 40 MG/4 ML VIAL 20 MG IV PUSH ×2 (08:21→17:55)
[2023-11-08] MEDS: dexAMETHasone 2 MG TABLET 6 MG PO (08:22)
[2023-11-08] MEDS: ROSUVASTATIN 10 MG TABLET PO (08:22)
[2023-11-08] MEDS: APIXABAN 5 MG TABLET PO ×2 (08:23→21:41)
[2023-11-08] MEDS: FAMOTIDINE 20 MG TABLET PO ×2 (08:23→21:42)
[2023-11-08] MEDS: dilTIAZem HCL CD 240 MG CAP.24HR PO (08:23)
--- NOTE | 2023-11-08 09:15 | PCSTNOTE ---
8:30 Patient is on BiPap, respiratory recommended against removing it for swallowing evaluation as sats. drop into 70's when removed. Will check with MARILY Zamora, later.
--- NOTE | 2023-11-08 10:57 | PM.IMPN ---
Progress Note: A&P Assessment and Plan (1) Acute and chronic respiratory failure: Code(s): J96.20 - Acute and chronic respiratory failure, unspecified whether with hypoxia or hypercapnia Status: Acute Assessment and Plan: Patient brought in from home for shortness of breath and noted to have SpO2 70's. Normally on 4L NC. She refused ABGs. CXR showing mild interstitial edema with bibasilar scarring/atelectasis and trace right pleural effusion. COVID positive. Influenza, RSV PCR negative. Treated with Solu-Medrol and bronchodilators. BiPAP started. Etiology 2nd to COVID and COPD exacerbation. Consider bacterial PNA and/or CHF. Doubt PE since on Eliquis Switched to Decadron. Tolerated BiPAP overnight. ABG showing 7.39/61/67 on bipap Able to be switched to HFNC today. Will see how she tolerates (2) COVID-19: Code(s): U07.1 - COVID-19 Status: Acute Assessment and Plan: COVID positive on admission. Started on Remdesivir and Decadron. Given the severity, we added baricitinib; side effects discussed with patient and family and both were agreeable to start this Continue Decadron, Remdesivir and baricitinib Wean O2 as tolerated. Continue bronchodlators. Supportive care (3) Afib: Code(s): I48.91 - Unspecified atrial fibrillation Status: Acute Assessment and Plan: Patient went into AFib overnight. Notation that she had AFib in the past (see 2021 notes). No EKG confirming AFib in the past but on Eliquis anddiltiazem on admission. Monitor on tele. Check EKG and TSH Continue current medical regiment. (4) Congestive heart failure: Qualifiers: Heart failure chronicity: acute Heart failure type: unspecified Qualified Code(s): I50.9 - Heart failure, unspecified Code(s): I50.9 - Heart failure, unspecified Status: Acute Assessment and Plan: Patient with known diastolic CHF. Echo Sep 2023 showing EF 60-65%, Grade I diastolic dysfxn, RV dilation and reduced fxn, moderate TR and moderate pulm HTN. Probably with right sided failure as well. CXR showing mild interstitial edema, BNP >30K. No Troponin drawn. EKG reviewed showing sinus tachycardia (106) and minor T wave changes in the high lateral leads Concern for acute on chronic diastolic CHF Lasix IV started. Monitor UOP, renal function and BP. Repeat CXR in am. (5) CKD (chronic kidney disease): Code(s): N18.9 - Chronic kidney disease, unspecified Status: Acute Assessment and Plan: Patient with normal renal function in 2021 but Cr 1-1.3 in September 2023 Cr 1.3 on admission felt to be at baseline Cr 1.1 today. Monitor renal function, UOP and electrolytes. (6) Pulmonary embolism: Code(s): I26.99 - Other pulmonary embolism without acute cor pulmonale Status: Acute Assessment and Plan: Hx of PE. Currently on Eliquis. Continue the same (7) Tobacco abuse: Code(s): Z72.0 - Tobacco use Status: Chronic Assessment and Plan: Patient education about the benefits of smoking cessation Plan GI prophylaxis: Continue home Pepcid DVT prophylaxis: On home Eliquis; INR elevated 2.4 Code Status: DNR Subjective Date/time seen: 11/08/23 10:57 Interval history: 83yo female with HTN, tobacco abuse, PE on Eliquis, chronic respiratory failure (4L), diastolic CHF and CKD here for shortness of breath.? SOB better. Wore bipap overnight. No CP . No n/v. Went into AFib overnight. Exam Narrative: AF 97.6 100/74 105 24 95% HFNC Gen - NARD Chest - distant BS CV - irregularly irregular. Tele showing AFib with RVR Abd - Soft, NT/ND, Positive BS Ext - No RLE pedal edema. Left BKA Psych - Nml mood and affect Skin - Warm and dry Objective Data Vital Signs Vital Signs: Vital Signs - 24 hr 11/07/23 11:50 11/07/23 11:30 11/07/23 12:00 Temperature 98.2 F Pulse Rate 97 Respiratory Rate 35 H 26 H Blood Pressur
--- NOTE | 2023-11-08 11:13 | ECG_ITS ---
Measurements Intervals [place] Rate: 102 P: DC: 0 QRS: -13 QRSD: 105 T: 178 QT: 300 QTc: 392 Interpretive Statements ATRIAL FLUTTER WITH RAPID VENTRICULAR RESPONSE VENTRICULAR PREMATURE COMPLEXES CONSIDER ANTERIOR INFARCT, AGE INDETERMINATE BASELINE ARTIFACT- I, II, III, AVR, AVL, AVF, V1-V6 ABNORMAL ECG COMPARED TO ECG 11/06/2023 17:34:02 ATRIAL FLUTTER NOW PRESENT Electronically Signed On 11-08-2023 12:00:50 HOTEL CONTROLLER by Frank Earl D.O.
--- NOTE | 2023-11-08 12:12 | PCSTNOTE ---
Noah reports patient still on BiPAP at 12:00, evaluation on hold.
[2023-11-08] MEDS: BARICITINIB 2 MG TABLET PO (13:59)
--- NOTE | 2023-11-08 18:00 | PC.NURSE ---
Updated granddaughter, Prasanna, on patient status and plan of care.
[2023-11-08] MEDS: REMDESIVIR 100 MG/NS 250 ML 100 MG/250 ML BAG 250 MG IVPB (21:41)
[2023-11-09] VITALS (31 sets, daily range): BP systolic 95–130; BP diastolic 61–76; PULSE 66–91; RESP 18–25; TEMP 36.3–36.6; O2SAT 91–97
[2023-11-09] MEDS: TOBRAMYCIN SULFATE 0.3% OPHTH SOLN 5 ML 1 DROP EACH EYE ×6 (00:38→22:14)
[2023-11-09] MEDS: IPRATROPIUM 0.5 MG/ALBUTEROL SULFATE 2.5 MG AMPUL.NEB 3 ML INHALATION ×4 (03:06→20:49)
[2023-11-09 05:25] LABS: Basophils Percent Auto 0.1 % (0.2-1.2); Hematocrit 47.3 % (37.0-47.0); Hemoglobin 13.9 g/dL (12.0-15.0); Immature Granulocyte Absolute 0.08 K/mm3 (0.00-0.031); Immature Granulocyte Percent A 0.9 % (0-0.5); Lymphocytes Absolute Auto 0.59 K/mm3 (0.9-3.2); Lymphocytes Percent Auto 6.8 % (18.3-44.2); Mean Corpuscular HGB Conc 29.4 g/dl (32-36); Mean Corpuscular Hemoglobin 25.7 pg (26-34); Mean Corpuscular Volume 87.6 fl (80-100); Mean Platelet Volume 10.5 fl (7.4-10.4); Monocytes Absolute Auto 0.3 K/mm3 (0.1-0.6); Monocytes Percent Auto 3.7 % (2.6-8.5); Neutrophils Absolute Auto 7.7 K/mm3 (1.3-6.7); Neutrophils Percent Auto 88.5 % (45.5-73.1); Platelet Count Result 233 k/mm3 (150-375); Red Cell Distribution Width 17.2 % (11.5-14.5); White Blood Count 8.7 K/mm3 (4.5-10.0)
[2023-11-09 05:52] LABS: Alanine Aminotransferase 18 U/L (6-35); Albumin Level 3.1 g/dL (3.5-5.1); Alkaline Phosphatase 55 U/L (38-126); Anion Gap 2 mmol/L (8-16); Aspartate Amino Transferase 32 U/L (14-36); Blood Urea Nitrogen 39 mg/dL (7-17); Calcium 8.2 mg/dL (8.4-10.2); Carbon Dioxide 39 mmol/L (22-30); Chloride 96 mmol/L (98-107); Estimated CRCL calculation 24 ml/min; Estimated Glomerular Filt Rate 48; Glucose 153 mg/dL (65-110); Magnesium 2.1 mg/dL (1.6-2.3); Sodium 137 mmol/L (137-145)
[2023-11-09 06:34] LABS: Thyroid Stimulating Hormone Reflex 0.052 uIU/mL (0.465-4.68)
[2023-11-09 07:09] LABS: Free T4 Free Thyroxine Reflex 1.26 ng/dL (0.78-2.19)
--- NOTE | 2023-11-09 08:57 | PCSTNOTE ---
Please refer to the Bedside Swallow Evaluation in the EMR. Please note, silent aspiration cannot be ruled out at bedside.
[2023-11-09] MEDS: dexAMETHasone 2 MG TABLET 6 MG PO (10:19)
[2023-11-09] MEDS: FAMOTIDINE 20 MG TABLET PO (10:20)
[2023-11-09] MEDS: FUROSEMIDE INJ 40 MG/4 ML VIAL 20 MG IV PUSH (10:20)
[2023-11-09] MEDS: ROSUVASTATIN 10 MG TABLET PO (10:20)
[2023-11-09] MEDS: dilTIAZem HCL CD 240 MG CAP.24HR PO (10:20)
[2023-11-09] MEDS: APIXABAN 5 MG TABLET PO ×2 (10:21→22:14)
[2023-11-09] MEDS: BARICITINIB 2 MG TABLET PO (10:32)
[2023-11-09 11:35] LABS: Total Triiodothyronine (T3) 0.79 NG/ML (0.97-1.69)
[2023-11-09] MEDS: ONDANSETRON INJ 4 MG/2 ML VIAL IV PUSH (15:03)
--- NOTE | 2023-11-09 16:29 | PM.IMPN ---
Progress Note: A&P Assessment and Plan (1) Acute and chronic respiratory failure: Code(s): J96.20 - Acute and chronic respiratory failure, unspecified whether with hypoxia or hypercapnia Status: Acute Assessment and Plan: Patient brought in from home for shortness of breath and noted to have SpO2 70's. Normally on 4L NC. She refused ABGs in ED. CXR showing mild interstitial edema with bibasilar scarring/atelectasis and trace right pleural effusion. COVID positive. Influenza, RSV PCR negative. Treated with Solu-Medrol and bronchodilators. BiPAP started. Etiology 2nd to COVID and COPD exacerbation. Consider bacterial PNA and/or CHF. Doubt PE since on Eliquis Switched to Decadron. Remdesivir and baricitinib added. Tolerated BiPAP overnight. ABG showing 7.39/61/67 on bipap. Able to be switched to HFNC and weaned to 4L which is essentially her baseline. Respiratory failure resolving. PT/OT (2) COVID-19: Code(s): U07.1 - COVID-19 Status: Acute Assessment and Plan: COVID positive on admission. Started on Remdesivir and Decadron. Given the severity, we added baricitinib; side effects discussed with patient and family and both were agreeable to start this Improving now Continue Decadron, Remdesivir and baricitinib Continue bronchodilators. Supportive care (3) Afib: Code(s): I48.91 - Unspecified atrial fibrillation Status: Acute Assessment and Plan: Patient went into AFib. Notation that she had AFib in the past (see 2021 notes). No EKG confirming AFib in the past but on Eliquis and diltiazem on admission. (Eliquis also for hx of PE) TSH low but FT4 normal. EKG showing AFlutter but appears to be back in NSR Monitor on tele. Continue current medical regiment. (4) Congestive heart failure: Qualifiers: Heart failure chronicity: acute Heart failure type: unspecified Qualified Code(s): I50.9 - Heart failure, unspecified Code(s): I50.9 - Heart failure, unspecified Status: Acute Assessment and Plan: Patient with known diastolic CHF. Echo Sep 2023 showing EF 60-65%, Grade I diastolic dysfxn, RV dilation and reduced fxn, moderate TR and moderate pulm HTN. Probably with right sided failure as well. CXR showing mild interstitial edema, BNP >30K. No Troponin drawn. EKG reviewed showing sinus tachycardia (106) and minor T wave changes in the high lateral leads Concern for acute on chronic diastolic CHF Lasix IV started. CXR today showing improvement. Able to wean O2. Monitor UOP, renal function and BP. Replace potassium. Change Lasix (5) CKD (chronic kidney disease): Code(s): N18.9 - Chronic kidney disease, unspecified Status: Acute Assessment and Plan: Patient with normal renal function in 2021 but Cr 1-1.3 in September 2023 Cr 1.3 on admission felt to be at baseline Cr 1.3 today. Monitor renal function, UOP and electrolytes. (6) Pulmonary embolism: Code(s): I26.99 - Other pulmonary embolism without acute cor pulmonale Status: Acute Assessment and Plan: Hx of PE. Currently on Eliquis. Continue the same (7) Tobacco abuse: Code(s): Z72.0 - Tobacco use Status: Chronic Assessment and Plan: Patient education about the benefits of smoking cessation (8) Dysphagia: Code(s): R13.10 - Dysphagia, unspecified Status: Acute Assessment and Plan: Speech therapy evaluation showing patient can swallow safely and recommended soft and bite sized Change to an regular diet to allow for my choice Plan GI prophylaxis: On her home Pepcid but with nausea so will change to Protonix since on steroids, anticoagulation DVT prophylaxis: On home Eliquis; INR elevated 2.4 probably related to malnutrition Code Status: DNR Subjective Date/time seen: 11/09/23 16:29 Interval history: 83yo female with HTN, tobacco abuse, PE on Eliquis, chronic respiratory
[2023-11-09] MEDS: POTASSIUM CHLORIDE 20 MEQ ER TABLET 40 MEQ PO (17:18)
[2023-11-09] MEDS: PANTOPRAZOLE SODIUM IV 40 MG VIAL IV PUSH ×2 (17:18→22:14)
[2023-11-09] MEDS: REMDESIVIR 100 MG/NS 250 ML 100 MG/250 ML BAG 250 MG IVPB (22:24)
[2023-11-10] VITALS (30 sets, daily range): BP systolic 96–115; BP diastolic 56–66; PULSE 60–81; RESP 19–28; TEMP 36.3–36.6; O2SAT 73–100
[2023-11-10] MEDS: TOBRAMYCIN SULFATE 0.3% OPHTH SOLN 5 ML 1 DROP EACH EYE ×6 (01:39→21:27)
[2023-11-10] MEDS: IPRATROPIUM 0.5 MG/ALBUTEROL SULFATE 2.5 MG AMPUL.NEB 3 ML INHALATION ×4 (02:21→20:57)
[2023-11-10 04:50] LABS: Basophils Percent Auto 0.1 % (0.2-1.2); Hematocrit 46.6 % (37.0-47.0); Hemoglobin 13.6 g/dL (12.0-15.0); Immature Granulocyte Absolute 0.06 K/mm3 (0.00-0.031); Immature Granulocyte Percent A 0.8 % (0-0.5); Lymphocytes Absolute Auto 0.43 K/mm3 (0.9-3.2); Lymphocytes Percent Auto 5.5 % (18.3-44.2); Mean Corpuscular HGB Conc 29.2 g/dl (32-36); Mean Corpuscular Hemoglobin 25.9 pg (26-34); Mean Corpuscular Volume 88.6 fl (80-100); Mean Platelet Volume 10.1 fl (7.4-10.4); Monocytes Absolute Auto 0.3 K/mm3 (0.1-0.6); Monocytes Percent Auto 3.2 % (2.6-8.5); Neutrophils Percent Auto 90.4 % (45.5-73.1); Platelet Count Result 207 k/mm3 (150-375); Red Blood Count 5.26 M/mm3 (4.2-5.4); Red Cell Distribution Width 16.3 % (11.5-14.5); White Blood Count 7.8 K/mm3 (4.5-10.0)
[2023-11-10 05:02] LABS: INR 2.4; Prothrombin Time 28.4 Seconds (11.1-14.7)
[2023-11-10 05:18] LABS: Anisocytosis 1+ (NORMAL); Hypochromasia 1+ (NORMAL); Ovalocytes 1+ (NORMAL); Platelet Estimate Adequate (Adequate); Schistocytes None Seen (NORMAL)
[2023-11-10 05:21] LABS: Alanine Aminotransferase 19 U/L (6-35); Albumin Level 3.2 g/dL (3.5-5.1); Alkaline Phosphatase 51 U/L (38-126); Aspartate Amino Transferase 30 U/L (14-36); Bilirubin Indirect 0.9 mg/dL (0-1.1); Bilirubin,Total 1.3 mg/dL (0.2-1.3); Blood Urea Nitrogen 40 mg/dL (7-17); Calcium 8.2 mg/dL (8.4-10.2); Carbon Dioxide > 40 mmol/L (22-30); Chloride 94 mmol/L (98-107); Estimated CRCL calculation 26 ml/min; Estimated Glomerular Filt Rate 52; Glucose 142 mg/dL (65-110); Potassium 4.2 mmol/L (3.4-5.0); Sodium 137 mmol/L (137-145)
--- NOTE | 2023-11-10 08:35 | PCPTNOTE ---
spoke with Dr. Lewis about bed rest order, per Dr. Lewis, take bed rest orders off and start therapy tomorrow 11/10
[2023-11-10] MEDS: dexAMETHasone 2 MG TABLET 6 MG PO (10:04)
[2023-11-10] MEDS: dilTIAZem HCL CD 240 MG CAP.24HR PO (10:04)
[2023-11-10] MEDS: ROSUVASTATIN 10 MG TABLET PO (10:04)
[2023-11-10] MEDS: APIXABAN 5 MG TABLET PO ×2 (10:04→21:26)
[2023-11-10] MEDS: PANTOPRAZOLE SODIUM IV 40 MG VIAL IV PUSH ×2 (10:04→21:26)
--- NOTE | 2023-11-10 10:25 | PCRCNOTE ---
RT tried to wean patient off BIPAP so patient can eat and take medications per RN. RN in room too. Patient placed on AIRVO. Airvo was maxed out at 60L and 90%, SpO2 was 70s. Patient continued to breath with mouth open although RT and RN instructed patient to breath in through nose and out through mouth. Patient placed on 15L NRBM with SpO2 91-94%. RN aware.
[2023-11-10] MEDS: BARICITINIB 2 MG TABLET PO (12:32)
--- NOTE | 2023-11-10 12:51 | PM.CNPUL ---
Assessment and Plan Assessment and plan (1) COVID-19: Code(s): U07.1 - COVID-19 Status: Acute Assessment and Plan: Patient tested positive for COVID-19 on 11/06/23 and started on remdesivir, dexamethasone and baricitinib on 11/06/23 as she required BiPAP support. Remdesivir for 10 days Unless he should recover and tolerate room air with rest, ambulation and while sleeping. - Dexamethasone 6 mg IV for 10 days - Baricitinib 2 mg p.o. q.day times 14 days or until discharge. Will increase to 4 if her GFR improves above 60. - Continuous pulse oximetry - Avoid any fluid overload. - Albuterol and ipratropium nebulizers Q 6 hours 11/10/23: CRP is less than 5, procalcitonin is 0.2. Goal saturation 90-94%. Will treat with high-flow nasal cannula and if fails consider Airvo although she is a mouth breather and she desaturated on this earlier today on 11/10/2023. She is tolerating BiPAP and I have changed her to the AVAPS mode. She is DNR. Will follow with you. (2) Acute on chronic respiratory failure with hypoxia and hypercapnia: Code(s): J96.21 - Acute and chronic respiratory failure with hypoxia; J96.22 - Acute and chronic respiratory failure with hypercapnia Status: Acute Assessment and Plan: etiology of patient's acute on chronic hypoxemic and hypercarbic respiratory failure likely COVID pneumonia. Patient also may have fluid overload. Procalcitonin remains low and I agree with no antibiotics. 11/06/23 18:15 BIPAP 10/5 100% saturations 94% 11/07/23 08:00 BIPAP 10/5 80% saturations 96% 11/08/23 08:00 BiPAP 10/5 60% saturations 95% 11/08/23 1600 BiPAP 10/5 60% saturations 93% 11/09/23 08:00 4 L nasal cannula saturations 94% 11/09/23 20:45 7 L nasal cannula saturation 94%. 11/10/23 8:15 7 L nasal cannula saturation 95% 11/10/23 8:55 BiPAP 10/5 60% saturation 93% 11/10/23 13:30 10 L nasal cannula saturation 93%. 11/10/23: Keep saturations are 90-94% with nasal cannula up to 15 L, if fails then Airvo high flow nasal cannula, of note the patient failed on Airvo earlier today and the nurse felt this is due to her mouth breathing. then Noninvasive ventilation with the AVAPS mode. When I enter the room the patient was on for BiPAP rate of 16 breathing 20 7 times a minute pressures 10/5, rise of 2, inspiratory time 0.8 and 60% FiO2 with saturations 92%. The patient said the pressure was too much and and was uncomfortable. I placed her on noninvasive ventilation mode with a AVAPS setting rate of 16, tidal volume 400, EPAP 5, minimal inspiratory pressure 6, maximal inspiratory pressure 25, inspiratory time 0.8, rise of 1 and 60% with saturations 94%. The patient said she was breathing well and I took her off and placed her on 10 L nasal cannula and after 8 minutes her saturations were 90-91%. She was comfortable. BNP today is 18,500 net diuresis since admission is 2 L. her weight today is 53.7 kilos with an admission weight of 58.8 kilos. last dose of Lasix was on 11/07/2023. Plan: I will check an ABG in morning prior to removal ov AVAPS. (3) Pulmonary embolism: Code(s): I26.99 - Other pulmonary embolism without acute cor pulmonale Status: Acute Assessment and Plan: patient diagnosed with CT angiogram on 09/21/2022. Patient has been continued on Eliquis. will continue for now. (4) COPD (chronic obstructive pulmonary disease): Code(s): J44.9 - Chronic obstructive pulmonary disease, unspecified Status: Acute Assessment and Plan: Patient carries a diagnosis of COPD. 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 I have no PFTs. Patient recently discharged requiring 4 L oxygen at rest and with activity per home O2 assessment on 09/22/2023. 11/10/23: currently the patient has no wheezing on exam. She is on dexamethasone 6 mg IV for her COVID treatment. I will continue albuterol and ipratropium nebul
[2023-11-10 13:04] LABS: CRP < 0.5 mg/dL (<1.0)
[2023-11-10 13:15] LABS: NT Pro B Type Natriuretic Pept 18500 pg/mL (19.9-100)
[2023-11-10 13:30] LABS: Procalcitonin 0.2 ng/mL
--- NOTE | 2023-11-10 14:25 | PM.IMPN ---
Progress Note: A&P Assessment and Plan (1) Acute and chronic respiratory failure: Code(s): J96.20 - Acute and chronic respiratory failure, unspecified whether with hypoxia or hypercapnia Status: Acute Assessment and Plan: Patient brought in from home for shortness of breath and noted to have SpO2 70's. Normally on 4L NC. She refused ABGs in ED. CXR showing mild interstitial edema with bibasilar scarring/atelectasis and trace right pleural effusion. COVID positive. Influenza, RSV PCR negative. Treated with Solu-Medrol and bronchodilators. BiPAP started. Etiology 2nd to COVID and COPD exacerbation. Consider bacterial PNA and/or CHF. Doubt PE since on Eliquis Switched to Decadron. Remdesivir and baricitinib added. Pt is now on 10liters of oxygen BIPAP by her bed (2) COVID-19: Code(s): U07.1 - COVID-19 Status: Acute Assessment and Plan: COVID positive on admission. Started on Remdesivir and Decadron. Given the severity, we added baricitinib; side effects discussed with patient and family and both were agreeable to start this Improving now Continue Decadron, Remdesivir and baricitinib Continue bronchodilators. Supportive care (3) Afib: Code(s): I48.91 - Unspecified atrial fibrillation Status: Acute Assessment and Plan: Patient went into AFib. Notation that she had AFib in the past (see 2021 notes). No EKG confirming AFib in the past but on Eliquis and diltiazem on admission. (Eliquis also for hx of PE) TSH low but FT4 normal. EKG showing AFlutter but appears to be back in NSR Monitor on telemetry Continue current medical regiment. (4) Congestive heart failure: Qualifiers: Heart failure chronicity: acute Heart failure type: unspecified Qualified Code(s): I50.9 - Heart failure, unspecified Code(s): I50.9 - Heart failure, unspecified Status: Acute Assessment and Plan: Patient with known diastolic CHF. Echo Sep 2023 showing EF 60-65%, Grade I diastolic dysfxn, RV dilation and reduced fxn, moderate TR and moderate pulm HTN. Probably with right sided failure as well. CXR showing mild interstitial edema, BNP >30K. No Troponin drawn. EKG reviewed showing sinus tachycardia (106) and minor T wave changes in the high lateral leads Concern for acute on chronic diastolic CHF Lasix IV started. CXR today showing improvement. off iv lasix now (5) CKD (chronic kidney disease): Code(s): N18.9 - Chronic kidney disease, unspecified Status: Acute Assessment and Plan: Patient with normal renal function in 2021 but Cr 1-1.3 in September 2023 Cr 1.3 on admission felt to be at baseline Cr 1.3 today. Monitor renal function, UOP and electrolytes. (6) Pulmonary embolism: Code(s): I26.99 - Other pulmonary embolism without acute cor pulmonale Status: Acute Assessment and Plan: Hx of PE. Currently on Eliquis. Continue the same (7) Tobacco abuse: Code(s): Z72.0 - Tobacco use Status: Chronic Assessment and Plan: Patient education about the benefits of smoking cessation (8) Dysphagia: Code(s): R13.10 - Dysphagia, unspecified Status: Acute Assessment and Plan: Speech therapy evaluation showing patient can swallow safely and recommended soft and bite sized Change to an regular diet to allow for my choice Plan GI prophylaxis: On her home Pepcid but with nausea so will change to Protonix since on steroids, anticoagulation DVT prophylaxis: On home Eliquis; INR elevated 2.4 probably related to malnutrition Code Status: DNR Subjective Date/time seen: 11/10/23 14:25 Interval history: 83yo female with HTN, tobacco abuse, PE on Eliquis, chronic respiratory failure (4L), diastolic CHF and CKD here for shortness of breath.? Pt admitted with covid pt is worsening needing more oxygenation on high flow at 10 liters Pulmonology consulted Pt is on
[2023-11-10] MEDS: REMDESIVIR 100 MG/NS 250 ML 100 MG/250 ML BAG 250 MG IVPB (21:27)
[2023-11-10 22:03] LABS: Glucose Point of Care 171 mg/dl (65-105)
[2023-11-11] VITALS (31 sets, daily range): BP systolic 110–144; BP diastolic 60–96; PULSE 61–84; RESP 17–31; TEMP 36.1–36.7; O2SAT 89–100
[2023-11-11] MEDS: IPRATROPIUM 0.5 MG/ALBUTEROL SULFATE 2.5 MG AMPUL.NEB 3 ML INHALATION ×4 (02:11→20:54)
[2023-11-11 04:06] LABS: Alveolar/Arterial O2 Gradient 262.1 mmHg; Base Excess ABG 12.9 mEq/l (+/-2.0); Fractional Inspired Oxygen 60 %; HCO3 ABG 41.9 mEq/l (22.0-26.0); Oxygen Content ABG 19.4 %vol (16.0-22.0); Oxygen Saturation ABG 95.6 % (95.0-100.0); Oxyhemoglobin 94.3 % THb (90.0-100.0); PO2 ABG 84.1 mmHg (80.0-100.0); Total Hemoglobin 14.6 g/dL (12.0-18.0)
[2023-11-11 04:09] LABS: Device NON-INVASIVE VENT; Modified Allen's Test Pass; PCO2 ABG 74.2 mmHg (35.0-45.0); Site Drawn RIGHT RADIAL
[2023-11-11 04:10] LABS: Non-Invasive Vent Rate 16 /MIN
[2023-11-11 04:11] LABS: Non-Invasive Expiratory Pressure 5 CMH2O
[2023-11-11 05:23] LABS: Hematocrit 48.2 % (37.0-47.0); Hemoglobin 13.7 g/dL (12.0-15.0); Immature Granulocyte Absolute 0.04 K/mm3 (0.00-0.031); Immature Granulocyte Percent A 0.6 % (0-0.5); Lymphocytes Absolute Auto 0.28 K/mm3 (0.9-3.2); Lymphocytes Percent Auto 4.5 % (18.3-44.2); Mean Corpuscular HGB Conc 28.4 g/dl (32-36); Mean Corpuscular Hemoglobin 25.9 pg (26-34); Mean Corpuscular Volume 91.1 fl (80-100); Mean Platelet Volume 10.4 fl (7.4-10.4); Monocytes Absolute Auto 0.2 K/mm3 (0.1-0.6); Monocytes Percent Auto 3.7 % (2.6-8.5); Neutrophils Absolute Auto 5.7 K/mm3 (1.3-6.7); Neutrophils Percent Auto 91.2 % (45.5-73.1); Platelet Count Result 204 k/mm3 (150-375); Red Blood Count 5.29 M/mm3 (4.2-5.4); Red Cell Distribution Width 16.4 % (11.5-14.5); White Blood Count 6.2 K/mm3 (4.5-10.0)
[2023-11-11] MEDS: TOBRAMYCIN SULFATE 0.3% OPHTH SOLN 5 ML 1 DROP EACH EYE ×4 (05:27→20:41)
[2023-11-11 05:42] LABS: Alanine Aminotransferase 19 U/L (6-35); Albumin Level 3.2 g/dL (3.5-5.1); Alkaline Phosphatase 48 U/L (38-126); Anion Gap 3 mmol/L (8-16); Aspartate Amino Transferase 28 U/L (14-36); Bilirubin,Total 1.3 mg/dL (0.2-1.3); Blood Urea Nitrogen 42 mg/dL (7-17); Calcium 8.2 mg/dL (8.4-10.2); Carbon Dioxide 39 mmol/L (22-30); Chloride 97 mmol/L (98-107); Estimated CRCL calculation 31 ml/min; Estimated Glomerular Filt Rate > 60; Glucose 161 mg/dL (65-110); Potassium 4.3 mmol/L (3.4-5.0); Sodium 139 mmol/L (137-145)
[2023-11-11 05:54] LABS: Anisocytosis 1+ (NORMAL); Burr Cells 1+ (NORMAL); Hypochromasia 1+ (NORMAL); Ovalocytes 1+ (NORMAL); Platelet Estimate Adequate (Adequate)
[2023-11-11 05:55] LABS: Schistocytes None Seen (NORMAL)
--- NOTE | 2023-11-11 08:57 | PCPTNOTE ---
Per OT, pt not medically appropriate this date and hospitalist agreed with holding therapy orders at this time. Will follow.
--- NOTE | 2023-11-11 09:21 | PCOTNOTE ---
Per Dr. Lewis, hold pt today for therapy due to poor respiratory status currently. Will continue to follow.
--- NOTE | 2023-11-11 09:52 | PCNFU ---
Nutrition Follow-Up Complete: Inadequate energy intake related to NPO status as evidenced by current diet orders Goal:Diet order PO intake 50% or greater Pt is progressing towards goal. Pt current nutrition is Regular, Ensure compact BID. Nutrition recommendation: Increased Ensure to TID Last recorded weight is 53.8 kg. Bowel Motility: +BM 3/3 Labs Reviewed: Hct:48.2, Alb:3.2, BUN:42, Glu:161 Meds Noted: eliquis, lasix, zofran, protonix Skin: no skin issues noted Additional Notes: Pt is on a regular diet now, intake varied 15-50% but overall poor. Ensure compact ordered BID, will increase to TID. Encourage intake of meals and supplements. Monitor diet orders, intake, wt, labs. Follow up in 5 days.
[2023-11-11] MEDS: dexAMETHasone 2 MG TABLET 6 MG PO (09:55)
[2023-11-11] MEDS: APIXABAN 5 MG TABLET PO ×2 (09:55→20:41)
[2023-11-11] MEDS: ROSUVASTATIN 10 MG TABLET PO (09:56)
[2023-11-11] MEDS: dilTIAZem HCL CD 240 MG CAP.24HR PO (09:56)
[2023-11-11] MEDS: PANTOPRAZOLE SODIUM IV 40 MG VIAL IV PUSH ×2 (09:56→20:41)
[2023-11-11] MEDS: BARICITINIB 2 MG TABLET PO (12:26)
--- NOTE | 2023-11-11 12:40 | PM.PNPUL ---
Progress Note: A&P Assessment and Plan (1) COVID-19: Code(s): U07.1 - COVID-19 Status: Acute Assessment and Plan: Patient tested positive for COVID-19 on 11/06/23 and started on remdesivir, dexamethasone and baricitinib on 11/06/23 as she required BiPAP support. Remdesivir for 10 days Unless he should recover and tolerate room air with rest, ambulation and while sleeping. - Dexamethasone 6 mg IV for 10 days - Baricitinib 2 mg p.o. q.day times 14 days or until discharge. Will increase to 4 if her GFR improves above 60. - Continuous pulse oximetry - Avoid any fluid overload. - Albuterol and ipratropium nebulizers Q 6 hours 11/10/23: CRP is less than 5, procalcitonin is 0.2. Goal saturation 90-94%. Will treat with high-flow nasal cannula and if fails consider Airvo although she is a mouth breather and she desaturated on this earlier today on 11/10/2023. She is tolerating BiPAP and I have changed her to the AVAPS mode. 11/11/23: Patient wore the noninvasive ventilator with 60% last night with the above settings and an ABG prior to removal of 7.. The patient was taken off her noninvasive ventilator this morning and placed on 15 L nasal cannula and after 2 minute she desaturated requiring the 15 L plus 15 L non-rebreather mask over this with saturations 90-91%. She tolerated this for approximately 30 minutes and then was placed back on her BiPAP. Overall the patient says she is feeling better and denied any shortness of breath, cough, phlegm or hemoptysis. Her white blood cell count is 6.2. Her creatinine is 1.0. Plan: Continue remdesivir, dexamethasone and baricitinib, all day 5. Will increase baricitinib to 4 mg as Cr improved. She is DNR. Will follow with you. (2) Acute on chronic respiratory failure with hypoxia and hypercapnia: Code(s): J96.21 - Acute and chronic respiratory failure with hypoxia; J96.22 - Acute and chronic respiratory failure with hypercapnia Status: Acute Assessment and Plan: etiology of patient's acute on chronic hypoxemic and hypercarbic respiratory failure likely COVID pneumonia. Patient also may have fluid overload. Procalcitonin remains low and I agree with no antibiotics. 11/06/23 18:15 BIPAP 10/5 100% saturations 94% 11/07/23 08:00 BIPAP 10/5 80% saturations 96% 11/08/23 08:00 BiPAP 10/5 60% saturations 95% 11/08/23 1600 BiPAP 10/5 60% saturations 93% 11/09/23 08:00 4 L nasal cannula saturations 94% 11/09/23 20:45 7 L nasal cannula saturation 94%. 11/10/23 8:15 7 L nasal cannula saturation 95% 11/10/23 8:55 BiPAP 10/5 60% saturation 93% 11/10/23 13:30 10 L nasal cannula saturation 93% for 4 hours then AVAPS 60% overnight. 11/11/23 9:30 15 L NC plus 15 L NRB sats 90-91 for 45 minutes then AVAPS 60%. 11/10/23: Keep saturations are 90-94% with nasal cannula up to 15 L, if fails then Airvo high flow nasal cannula, of note the patient failed on Airvo earlier today and the nurse felt this is due to her mouth breathing. then Noninvasive ventilation with the AVAPS mode. When I enter the room the patient was on for BiPAP rate of 16 breathing 20 7 times a minute pressures 10/5, rise of 2, inspiratory time 0.8 and 60% FiO2 with saturations 92%. The patient said the pressure was too much and and was uncomfortable. I placed her on noninvasive ventilation mode with a AVAPS setting rate of 16, tidal volume 400, EPAP 5, minimal inspiratory pressure 6, maximal inspiratory pressure 25, inspiratory time 0.8, rise of 1 and 60% with saturations 94%. The patient said she was breathing well and I took her off and placed her on 10 L nasal cannula and after 8 minutes her saturations were 90-91%. She was comfortable. BNP today is 18,500 net diuresis since admission is 2 L. her weight today is 53.7 kilos with an admission weight of 58.8 kilos. last dose of Lasix was on 11/07/2023. Plan: I will check an ABG in morning prior to removal of AVAPS. 11/11/23: Patient wore the noninvasive chad
--- NOTE | 2023-11-11 15:37 | PM.IMPN ---
Progress Note: A&P Assessment and Plan (1) Acute and chronic respiratory failure: Code(s): J96.20 - Acute and chronic respiratory failure, unspecified whether with hypoxia or hypercapnia Status: Acute Assessment and Plan: Patient brought in from home for shortness of breath and noted to have SpO2 70's. Normally on 4L NC. She refused ABGs in ED. CXR showing mild interstitial edema with bibasilar scarring/atelectasis and trace right pleural effusion. COVID positive. Influenza, RSV PCR negative. Treated with Solu-Medrol and bronchodilators. BiPAP started. Etiology 2nd to COVID and COPD exacerbation. Consider bacterial PNA and/or CHF. Doubt PE since on Eliquis Switched to Decadron. Remdesivir and baricitinib added. Pt is now on 10liters of oxygen BIPAP by her bed Pt is alternating Bipap with high flow when she eats (2) COVID-19: Code(s): U07.1 - COVID-19 Status: Acute Assessment and Plan: COVID positive on admission. Started on Remdesivir and Decadron. Given the severity, we added baricitinib; side effects discussed with patient and family and both were agreeable to start this Improving now Continue Decadron, Remdesivir and baricitinib Continue bronchodilators. Supportive care CT chest is a consideration Await improvement in respiratory status (3) Afib: Code(s): I48.91 - Unspecified atrial fibrillation Status: Acute Assessment and Plan: Patient went into AFib. Notation that she had AFib in the past (see 2021 notes). No EKG confirming AFib in the past but on Eliquis and diltiazem on admission. (Eliquis also for hx of PE) TSH low but FT4 normal. EKG showing AFlutter but appears to be back in NSR Monitor on telemetry Continue current medical regiment. (4) Congestive heart failure: Qualifiers: Heart failure chronicity: acute Heart failure type: unspecified Qualified Code(s): I50.9 - Heart failure, unspecified Code(s): I50.9 - Heart failure, unspecified Status: Acute Assessment and Plan: Patient with known diastolic CHF. Echo Sep 2023 showing EF 60-65%, Grade I diastolic dysfxn, RV dilation and reduced fxn, moderate TR and moderate pulm HTN. Probably with right sided failure as well. CXR showing mild interstitial edema, BNP >30K. No Troponin drawn. EKG reviewed showing sinus tachycardia (106) and minor T wave changes in the high lateral leads Concern for acute on chronic diastolic CHF Lasix IV started. previous cxr showing improvement. off iv lasix now (5) CKD (chronic kidney disease): Code(s): N18.9 - Chronic kidney disease, unspecified Status: Acute Assessment and Plan: Patient with normal renal function in 2021 but Cr 1-1.3 in September 2023 Cr 1.3 on admission felt to be at baseline Cr 1.3 today. Monitor renal function, UOP and electrolytes. (6) Pulmonary embolism: Code(s): I26.99 - Other pulmonary embolism without acute cor pulmonale Status: Acute Assessment and Plan: Hx of PE. Currently on Eliquis. Continue the same (7) Tobacco abuse: Code(s): Z72.0 - Tobacco use Status: Chronic Assessment and Plan: Patient education about the benefits of smoking cessation (8) Dysphagia: Code(s): R13.10 - Dysphagia, unspecified Status: Acute Assessment and Plan: Speech therapy evaluation showing patient can swallow safely and recommended soft and bite sized Change to an regular diet to allow for my choice Plan GI prophylaxis: On her home Pepcid but with nausea so will change to Protonix since on steroids, anticoagulation DVT prophylaxis: On home Eliquis; INR elevated 2.4 probably related to malnutrition Code Status: DNR Subjective Date/time seen: 11/11/23 15:37 Interval history: 83yo female with HTN, tobacco abuse, PE on Eliquis, chronic respiratory failure (4L), diastolic CHF and CKD here for shortness of breath.
[2023-11-11] MEDS: REMDESIVIR 100 MG/NS 250 ML 100 MG/250 ML BAG 250 MG IVPB (21:40)
[2023-11-12] VITALS (23 sets, daily range): BP systolic 111–129; BP diastolic 59–69; PULSE 62–97; RESP 18–31; TEMP 36.3–37.6; O2SAT 91–98
[2023-11-12] MEDS: TOBRAMYCIN SULFATE 0.3% OPHTH SOLN 5 ML 1 DROP EACH EYE ×6 (01:24→20:47)
[2023-11-12] MEDS: IPRATROPIUM 0.5 MG/ALBUTEROL SULFATE 2.5 MG AMPUL.NEB 3 ML INHALATION ×4 (02:41→21:25)
[2023-11-12 04:34] LABS: Basophils Percent Auto 0.2 % (0.2-1.2); Hematocrit 49.2 % (37.0-47.0); Immature Granulocyte Absolute 0.04 K/mm3 (0.00-0.031); Immature Granulocyte Percent A 0.8 % (0-0.5); Lymphocytes Absolute Auto 0.27 K/mm3 (0.9-3.2); Lymphocytes Percent Auto 5.1 % (18.3-44.2); Mean Corpuscular HGB Conc 28.5 g/dl (32-36); Mean Corpuscular Hemoglobin 25.5 pg (26-34); Mean Corpuscular Volume 89.6 fl (80-100); Mean Platelet Volume 10.7 fl (7.4-10.4); Monocytes Absolute Auto 0.3 K/mm3 (0.1-0.6); Monocytes Percent Auto 4.8 % (2.6-8.5); Neutrophils Absolute Auto 4.7 K/mm3 (1.3-6.7); Neutrophils Percent Auto 89.1 % (45.5-73.1); Platelet Count Result 201 k/mm3 (150-375); Red Blood Count 5.49 M/mm3 (4.2-5.4); Red Cell Distribution Width 16.1 % (11.5-14.5); White Blood Count 5.3 K/mm3 (4.5-10.0)
[2023-11-12 04:47] LABS: Anisocytosis 1+ (NORMAL); Hypochromasia 1+ (NORMAL); Platelet Estimate Adequate (Adequate)
[2023-11-12 04:48] LABS: Schistocytes None Seen (NORMAL)
[2023-11-12 04:56] LABS: Alanine Aminotransferase 20 U/L (6-35); Albumin Level 3.3 g/dL (3.5-5.1); Alkaline Phosphatase 47 U/L (38-126); Aspartate Amino Transferase 26 U/L (14-36); Bilirubin,Total 1.4 mg/dL (0.2-1.3); Blood Urea Nitrogen 44 mg/dL (7-17); Calcium 8.8 mg/dL (8.4-10.2); Carbon Dioxide > 40 mmol/L (22-30); Chloride 97 mmol/L (98-107); Estimated CRCL calculation 34 ml/min; Estimated Glomerular Filt Rate > 60; Glucose 178 mg/dL (65-110); Potassium 4.7 mmol/L (3.4-5.0); Sodium 139 mmol/L (137-145)
[2023-11-12] MEDS: ROSUVASTATIN 10 MG TABLET PO (08:44)
[2023-11-12] MEDS: dilTIAZem HCL CD 240 MG CAP.24HR PO (08:44)
[2023-11-12] MEDS: APIXABAN 5 MG TABLET PO ×2 (08:44→20:47)
[2023-11-12] MEDS: dexAMETHasone 2 MG TABLET 6 MG PO (08:44)
[2023-11-12] MEDS: PANTOPRAZOLE SODIUM IV 40 MG VIAL IV PUSH ×2 (08:45→20:47)
--- NOTE | 2023-11-12 10:31 | PM.PNPUL ---
Progress Note: A&P Assessment and Plan (1) COVID-19: Code(s): U07.1 - COVID-19 Status: Acute Assessment and Plan: Patient tested positive for COVID-19 on 11/06/23 and started on remdesivir, dexamethasone and baricitinib on 11/06/23 as she required BiPAP support. Remdesivir for 10 days Unless he should recover and tolerate room air with rest, ambulation and while sleeping. - Dexamethasone 6 mg IV for 10 days - Baricitinib 2 mg p.o. q.day times 14 days or until discharge. Will increase to 4 if her GFR improves above 60. - Continuous pulse oximetry - Avoid any fluid overload. - Albuterol and ipratropium nebulizers Q 6 hours 11/10/23: CRP is less than 5, procalcitonin is 0.2. Goal saturation 90-94%. Will treat with high-flow nasal cannula and if fails consider Airvo although she is a mouth breather and she desaturated on this earlier today on 11/10/2023. She is tolerating BiPAP and I have changed her to the AVAPS mode. 11/11/23: Patient wore the noninvasive ventilator with 60% last night with the above settings and an ABG prior to removal of 7.. The patient was taken off her noninvasive ventilator this morning and placed on 15 L nasal cannula and after 2 minute she desaturated requiring the 15 L plus 15 L non-rebreather mask over this with saturations 90-91%. She tolerated this for approximately 30 minutes and then was placed back on her BiPAP. Overall the patient says she is feeling better and denied any shortness of breath, cough, phlegm or hemoptysis. Her white blood cell count is 6.2. Her creatinine is 1.0. Plan: Continue remdesivir, dexamethasone and baricitinib, all day 5. Will increase baricitinib to 4 mg as Cr improved. 11/12/23: She states she is feeling better today and she denies shortness of breath, cough, phlegm production. Overall she states her breathing is normal. Her white blood cell count is 5.3, her creatinine is 0.9. She is afebrile. Chest x-ray with continued low lung volumes and no evidence of fluid overload. Plan: Continue remdesivir, dexamethasone and baricitinib, all day 6. Will continue baricitinib to 4 mg as Cr improved. Out of bed as tolerated. Goal saturation 90-94%. She is DNR. Inpatient Pulmonary services will resume on 11/15/2023, call with questions. Discussed with Dr. Gonzalez (2) Acute on chronic respiratory failure with hypoxia and hypercapnia: Code(s): J96.21 - Acute and chronic respiratory failure with hypoxia; J96.22 - Acute and chronic respiratory failure with hypercapnia Status: Acute Assessment and Plan: etiology of patient's acute on chronic hypoxemic and hypercarbic respiratory failure likely COVID pneumonia. Patient also may have fluid overload. Procalcitonin remains low and I agree with no antibiotics. Oxygen trends:. 11/06/23 18:15 BIPAP 10/5 100% saturations 94% 11/07/23 8:00 BIPAP 10/5 80% saturations 96% 11/08/23 8:00 BiPAP 10/5 60% saturations 95% 11/08/23 1600 BiPAP 10/5 60% saturations 93% 11/09/23 8:00 4 L nasal cannula saturations 94% 11/09/23 20:45 7 L nasal cannula saturation 94%. 11/10/23 8:15 7 L nasal cannula saturation 95% 11/10/23 8:55 BiPAP 10/5 60% saturation 93% 11/10/23 13:30 10 L nasal cannula saturation 93% for 4 hours then AVAPS 60% overnight. 11/11/23 9:30 15 L NC plus 15 L NRB sats 90-91 for 45 minutes then AVAPS 60%. AVAPS 60 throughout most of the day. 11/12/23 8:00 15 L nasal cannula saturations 92% to 98%. 11/10/23: Keep saturations are 90-94% with nasal cannula up to 15 L, if fails then Airvo high flow nasal cannula, of note the patient failed on Airvo earlier today and the nurse felt this is due to her mouth breathing. then Noninvasive ventilation with the AVAPS mode. When I enter the room the patient was on for BiPAP rate of 16 breathing 20 7 times a minute pressures 10/5, rise of 2, inspiratory time 0.8 and 60% FiO2 with saturations 92%. The patient said the pressure was too much and and was uncomfortable. I
--- NOTE | 2023-11-12 10:58 | PC.NURSE ---
spoke with son from [facility], given update on pt condition, transferred into room at pts request so she can speak with him
[2023-11-12] MEDS: BARICITINIB 2 MG TABLET 4 MG PO (11:48)
--- NOTE | 2023-11-12 17:37 | PM.IMPN ---
Progress Note: A&P Assessment and Plan (1) Acute and chronic respiratory failure: Code(s): J96.20 - Acute and chronic respiratory failure, unspecified whether with hypoxia or hypercapnia Status: Acute Assessment and Plan: Patient brought in from home for shortness of breath and noted to have SpO2 70's. Normally on 4L NC. She refused ABGs in ED. CXR showing mild interstitial edema with bibasilar scarring/atelectasis and trace right pleural effusion. COVID positive. Influenza, RSV PCR negative. Treated with Solu-Medrol and bronchodilators. BiPAP started. Etiology 2nd to COVID and COPD exacerbation. Consider bacterial PNA and/or CHF. Doubt PE since on Eliquis Switched to Decadron. Remdesivir and baricitinib added. Pt is now on 15 liters of oxygen BIPAP by her bed Pt is alternating Bipap with high flow when she eats Pulmonary on board (2) COVID-19: Code(s): U07.1 - COVID-19 Status: Acute Assessment and Plan: COVID positive on admission. Started on Remdesivir and Decadron. Given the severity, we added baricitinib; side effects discussed with patient and family and both were agreeable to start this Improving now Continue Decadron, Remdesivir and baricitinib Continue bronchodilators. Supportive care CTA with mucus plugging and pneumonia but no PE (3) Afib: Code(s): I48.91 - Unspecified atrial fibrillation Status: Acute Assessment and Plan: Patient went into AFib. Notation that she had AFib in the past (see 2021 notes). No EKG confirming AFib in the past but on Eliquis and diltiazem on admission. (Eliquis also for hx of PE) TSH low but FT4 normal. EKG showing AFlutter but appears to be back in NSR Monitor on telemetry Continue current medical regiment. (4) Congestive heart failure: Qualifiers: Heart failure chronicity: acute Heart failure type: unspecified Qualified Code(s): I50.9 - Heart failure, unspecified Code(s): I50.9 - Heart failure, unspecified Status: Acute Assessment and Plan: Patient with known diastolic CHF. Echo Sep 2023 showing EF 60-65%, Grade I diastolic dysfxn, RV dilation and reduced fxn, moderate TR and moderate pulm HTN. Probably with right sided failure as well. CXR showing mild interstitial edema, BNP >30K. No Troponin drawn. EKG reviewed showing sinus tachycardia (106) and minor T wave changes in the high lateral leads Concern for acute on chronic diastolic CHF Lasix IV started. previous cxr showing improvement. off iv lasix now (5) CKD (chronic kidney disease): Code(s): N18.9 - Chronic kidney disease, unspecified Status: Acute Assessment and Plan: Patient with normal renal function in 2021 but Cr 1-1.3 in September 2023 Cr 1.3 on admission felt to be at baseline Cr 1.3 today. Monitor renal function, UOP and electrolytes. (6) Pulmonary embolism: Code(s): I26.99 - Other pulmonary embolism without acute cor pulmonale Status: Acute Assessment and Plan: Hx of PE. Currently on Eliquis. Continue the same (7) Tobacco abuse: Code(s): Z72.0 - Tobacco use Status: Chronic Assessment and Plan: Patient education about the benefits of smoking cessation (8) Dysphagia: Code(s): R13.10 - Dysphagia, unspecified Status: Acute Assessment and Plan: Speech therapy evaluation showing patient can swallow safely and recommended soft and bite sized Change to an regular diet to allow for my choice Plan GI prophylaxis: On her home Pepcid but with nausea so will change to Protonix since on steroids, anticoagulation DVT prophylaxis: On home Eliquis; INR elevated 2.4 probably related to malnutrition Code Status: DNR Subjective Date/time seen: 11/12/23 17:37 Interval history: 83yo female with HTN, tobacco abuse, PE on Eliquis, chronic respiratory failure (4L), diastolic CHF and CKD here for shortness of breath.?
--- NOTE | 2023-11-12 19:14 | PC.NURSE ---
Walked into patient's room because bed alarm was going off. Patient stated she was trying to sit the bed up because she was having trouble breathing. Put spo2 monitor on patient and it read 45% on 15L HFNC. Put patient back on the bipap with AVAPS settings. Patient recovered to 97%. Patient states she didn't choke, she just suddenly couldn't breath.
[2023-11-12] MEDS: REMDESIVIR 100 MG/NS 250 ML 100 MG/250 ML BAG 250 MG IVPB (20:48)
[2023-11-13] VITALS (28 sets, daily range): BP systolic 118–151; BP diastolic 63–96; PULSE 68–102; RESP 20–32; TEMP 36.3–36.9; O2SAT 80–100
[2023-11-13] MEDS: IPRATROPIUM 0.5 MG/ALBUTEROL SULFATE 2.5 MG AMPUL.NEB 3 ML INHALATION ×4 (01:50→20:57)
[2023-11-13] MEDS: TOBRAMYCIN SULFATE 0.3% OPHTH SOLN 5 ML 1 DROP EACH EYE ×5 (04:07→21:58)
[2023-11-13 04:55] LABS: Basophils Percent Auto 0.1 % (0.2-1.2); Hematocrit 46.7 % (37.0-47.0); Hemoglobin 13.2 g/dL (12.0-15.0); Immature Granulocyte Absolute 0.04 K/mm3 (0.00-0.031); Immature Granulocyte Percent A 0.5 % (0-0.5); Lymphocytes Absolute Auto 0.24 K/mm3 (0.9-3.2); Lymphocytes Percent Auto 3.1 % (18.3-44.2); Mean Corpuscular HGB Conc 28.3 g/dl (32-36); Mean Corpuscular Hemoglobin 25.6 pg (26-34); Mean Corpuscular Volume 90.5 fl (80-100); Mean Platelet Volume 10.8 fl (7.4-10.4); Monocytes Absolute Auto 0.5 K/mm3 (0.1-0.6); Monocytes Percent Auto 5.9 % (2.6-8.5); Neutrophils Percent Auto 90.4 % (45.5-73.1); Platelet Count Result 211 k/mm3 (150-375); Red Blood Count 5.16 M/mm3 (4.2-5.4); Red Cell Distribution Width 16.5 % (11.5-14.5); White Blood Count 7.8 K/mm3 (4.5-10.0)
[2023-11-13 05:06] LABS: Alanine Aminotransferase 23 U/L (6-35); Albumin Level 3.1 g/dL (3.5-5.1); Alkaline Phosphatase 47 U/L (38-126); Aspartate Amino Transferase 30 U/L (14-36); Bilirubin,Total 1.3 mg/dL (0.2-1.3); Blood Urea Nitrogen 49 mg/dL (7-17); Calcium 8.9 mg/dL (8.4-10.2); Carbon Dioxide > 40 mmol/L (22-30); Chloride 97 mmol/L (98-107); Estimated CRCL calculation 38 ml/min; Estimated Glomerular Filt Rate > 60; Glucose 206 mg/dL (65-110); Potassium 5.1 mmol/L (3.4-5.0); Sodium 139 mmol/L (137-145)
[2023-11-13 05:11] LABS: INR 1.5; Prothrombin Time 19.1 Seconds (11.1-14.7)
[2023-11-13] MEDS: ROSUVASTATIN 10 MG TABLET PO (09:32)
[2023-11-13] MEDS: APIXABAN 5 MG TABLET PO ×2 (09:33→21:58)
[2023-11-13] MEDS: dilTIAZem HCL CD 240 MG CAP.24HR PO (09:33)
[2023-11-13] MEDS: dexAMETHasone 2 MG TABLET 6 MG PO (09:33)
[2023-11-13] MEDS: polyethylene glycoL 3350 17 GM POWD.PACK PO (09:34)
[2023-11-13] MEDS: PANTOPRAZOLE SODIUM IV 40 MG VIAL IV PUSH ×2 (09:34→21:58)
[2023-11-13] MEDS: BARICITINIB 2 MG TABLET 4 MG PO (11:31)
--- NOTE | 2023-11-13 13:29 | PM.IMPN ---
Progress Note: A&P Assessment and Plan (1) Acute and chronic respiratory failure: Code(s): J96.20 - Acute and chronic respiratory failure, unspecified whether with hypoxia or hypercapnia Status: Acute Assessment and Plan: Patient brought in from home for shortness of breath and noted to have SpO2 70's. Normally on 4L NC. She refused ABGs in ED. CXR showing mild interstitial edema with bibasilar scarring/atelectasis and trace right pleural effusion. COVID positive. Influenza, RSV PCR negative. Treated with Solu-Medrol and bronchodilators. BiPAP started. Etiology 2nd to COVID and COPD exacerbation. Consider bacterial PNA and/or CHF. Doubt PE since on Eliquis Switched to Decadron. Remdesivir and baricitinib added. Pt is now on 15 liters of oxygen BIPAP by her bed Pt is alternating Bipap with high flow when she eats Pulmonary on board (2) COVID-19: Code(s): U07.1 - COVID-19 Status: Acute Assessment and Plan: COVID positive on admission. Started on Remdesivir and Decadron. Given the severity, we added baricitinib; side effects discussed with patient and family and both were agreeable to start this Improving now Continue Decadron, Remdesivir and baricitinib Continue bronchodilators. Supportive care CTA with mucus plugging and pneumonia but no PE (3) Afib: Code(s): I48.91 - Unspecified atrial fibrillation Status: Acute Assessment and Plan: Patient went into AFib. Notation that she had AFib in the past (see 2021 notes). No EKG confirming AFib in the past but on Eliquis and diltiazem on admission. (Eliquis also for hx of PE) TSH low but FT4 normal. EKG showing AFlutter but appears to be back in NSR Monitor on telemetry Continue current medical regiment. (4) Congestive heart failure: Qualifiers: Heart failure chronicity: acute Heart failure type: unspecified Qualified Code(s): I50.9 - Heart failure, unspecified Code(s): I50.9 - Heart failure, unspecified Status: Acute Assessment and Plan: Patient with known diastolic CHF. Echo Sep 2023 showing EF 60-65%, Grade I diastolic dysfxn, RV dilation and reduced fxn, moderate TR and moderate pulm HTN. Probably with right sided failure as well. CXR showing mild interstitial edema, BNP >30K. No Troponin drawn. EKG reviewed showing sinus tachycardia (106) and minor T wave changes in the high lateral leads Concern for acute on chronic diastolic CHF Lasix IV started. previous cxr showing improvement. off iv lasix now (5) CKD (chronic kidney disease): Code(s): N18.9 - Chronic kidney disease, unspecified Status: Acute Assessment and Plan: Patient with normal renal function in 2021 but Cr 1-1.3 in September 2023 Cr 1.3 on admission felt to be at baseline Cr 1.3 today. Monitor renal function, UOP and electrolytes. (6) Pulmonary embolism: Code(s): I26.99 - Other pulmonary embolism without acute cor pulmonale Status: Acute Assessment and Plan: Hx of PE. Currently on Eliquis. Continue the same (7) Tobacco abuse: Code(s): Z72.0 - Tobacco use Status: Chronic Assessment and Plan: Patient education about the benefits of smoking cessation (8) Dysphagia: Code(s): R13.10 - Dysphagia, unspecified Status: Acute Assessment and Plan: Speech therapy evaluation showing patient can swallow safely and recommended soft and bite sized Change to an regular diet to allow for my choice Plan GI prophylaxis: On her home Pepcid but with nausea so will change to Protonix since on steroids, anticoagulation DVT prophylaxis: On home Eliquis; INR elevated 2.4 probably related to malnutrition Code Status: DNR Subjective Date/time seen: 11/13/23 13:29 Interval history: No overnight events. Date on nasal cannula throughout the day yesterday. When on BiPAP overnight. Was switched to nasal cannula but did
[2023-11-13] MEDS: EUCERIN CREAM 120 GM JAR 1 APPLIC TOPICAL ×2 (17:15→21:59)
[2023-11-13] MEDS: guaiFENesin 12 HR 600 MG TABCR PO (21:58)
[2023-11-13] MEDS: REMDESIVIR 100 MG/NS 250 ML 100 MG/250 ML BAG 250 MG IVPB (22:00)
[2023-11-14] VITALS (30 sets, daily range): BP systolic 111–128; BP diastolic 60–72; PULSE 64–88; RESP 16–28; TEMP 36.1–36.7; O2SAT 87–98
[2023-11-14] MEDS: IPRATROPIUM 0.5 MG/ALBUTEROL SULFATE 2.5 MG AMPUL.NEB 3 ML INHALATION ×4 (01:45→20:43)
--- NOTE | 2023-11-14 03:54 | PC.NURSE ---
Daylight Savings Time For Daylight Savings Time Ending in the Fall - Clocks are moved back. For Daylight Savings Time Beginning in the Spring - Clocks are moved ahead. For [facility], the time of change occurs at 0200 hrs. Time is taken from the server administrator. This entry on the patient's chart recognizes the change in time reflected during documentation. Example: 2 entries for vital signs may be charted for 0200 hrs.
[2023-11-14 05:00] LABS: Hematocrit 44.7 % (37.0-47.0); Hemoglobin 12.7 g/dL (12.0-15.0); Immature Granulocyte Absolute 0.04 K/mm3 (0.00-0.031); Immature Granulocyte Percent A 0.7 % (0-0.5); Lymphocytes Absolute Auto 0.26 K/mm3 (0.9-3.2); Lymphocytes Percent Auto 4.6 % (18.3-44.2); Mean Corpuscular HGB Conc 28.4 g/dl (32-36); Mean Corpuscular Hemoglobin 25.7 pg (26-34); Mean Corpuscular Volume 90.3 fl (80-100); Mean Platelet Volume 10.7 fl (7.4-10.4); Monocytes Absolute Auto 0.3 K/mm3 (0.1-0.6); Monocytes Percent Auto 4.5 % (2.6-8.5); Neutrophils Absolute Auto 5.1 K/mm3 (1.3-6.7); Neutrophils Percent Auto 90.2 % (45.5-73.1); Platelet Count Result 185 k/mm3 (150-375); Red Blood Count 4.95 M/mm3 (4.2-5.4); Red Cell Distribution Width 16.3 % (11.5-14.5); White Blood Count 5.6 K/mm3 (4.5-10.0)
[2023-11-14 05:15] LABS: Alanine Aminotransferase 22 U/L (6-35); Alkaline Phosphatase 47 U/L (38-126); Aspartate Amino Transferase 26 U/L (14-36); Bilirubin,Total 1.2 mg/dL (0.2-1.3); Blood Urea Nitrogen 50 mg/dL (7-17); Calcium 9.1 mg/dL (8.4-10.2); Carbon Dioxide > 40 mmol/L (22-30); Chloride 99 mmol/L (98-107); Estimated CRCL calculation 38 ml/min; Estimated Glomerular Filt Rate > 60; Glucose 230 mg/dL (65-110); Magnesium 2.2 mg/dL (1.6-2.3); Potassium 5.6 mmol/L (3.4-5.0); Sodium 138 mmol/L (137-145)
[2023-11-14 05:25] LABS: Burr Cells 1+ (NORMAL); Hypochromasia 1+ (NORMAL); Ovalocytes 1+ (NORMAL); Platelet Estimate Adequate (Adequate); Schistocytes None Seen (NORMAL)
[2023-11-14] MEDS: TOBRAMYCIN SULFATE 0.3% OPHTH SOLN 5 ML 1 DROP EACH EYE ×5 (05:50→21:21)
[2023-11-14] MEDS: guaiFENesin 12 HR 600 MG TABCR PO ×2 (07:55→21:22)
[2023-11-14] MEDS: ROSUVASTATIN 10 MG TABLET PO (07:55)
[2023-11-14] MEDS: APIXABAN 5 MG TABLET PO ×2 (07:55→21:22)
[2023-11-14] MEDS: dilTIAZem HCL CD 240 MG CAP.24HR PO (07:55)
[2023-11-14] MEDS: PANTOPRAZOLE SODIUM IV 40 MG VIAL IV PUSH ×2 (07:56→21:21)
[2023-11-14] MEDS: dexAMETHasone 2 MG TABLET 6 MG PO (07:56)
[2023-11-14] MEDS: polyethylene glycoL 3350 17 GM POWD.PACK PO (07:56)
[2023-11-14] MEDS: EUCERIN CREAM 120 GM JAR 1 APPLIC TOPICAL ×2 (07:57→21:21)
[2023-11-14] MEDS: SODIUM ZIRCONIUM CYCLOSILICATE 10 GM POWD.PACK PO (11:03)
--- NOTE | 2023-11-14 12:32 | PM.IMPN ---
Progress Note: A&P Assessment and Plan (1) Acute and chronic respiratory failure: Code(s): J96.20 - Acute and chronic respiratory failure, unspecified whether with hypoxia or hypercapnia Status: Acute Assessment and Plan: Patient brought in from home for shortness of breath and noted to have SpO2 70's. Normally on 4L NC. She refused ABGs in ED. CXR showing mild interstitial edema with bibasilar scarring/atelectasis and trace right pleural effusion. COVID positive. Influenza, RSV PCR negative. Treated with Solu-Medrol and bronchodilators. BiPAP started. Etiology 2nd to COVID and COPD exacerbation. Consider bacterial PNA and/or CHF. Doubt PE since on Eliquis Switched to Decadron. Remdesivir and baricitinib added. Pt is now on 15 liters of oxygen BIPAP by her bed Pt is alternating Bipap with high flow when she eats Pulmonary on board Will add incentive spirometry. Continue to wean as tolerated. Recheck chest x-ray in a.m. (2) COVID-19: Code(s): U07.1 - COVID-19 Status: Acute Assessment and Plan: COVID positive on admission. Started on Remdesivir and Decadron. Given the severity, we added baricitinib; side effects discussed with patient and family and both were agreeable to start this Improving now Continue Decadron, Remdesivir and baricitinib Continue bronchodilators. Supportive care CTA with mucus plugging and pneumonia but no PE. Added Mucinex (3) Afib: Code(s): I48.91 - Unspecified atrial fibrillation Status: Acute Assessment and Plan: Patient went into AFib. Notation that she had AFib in the past (see 2021 notes). No EKG confirming AFib in the past but on Eliquis and diltiazem on admission. (Eliquis also for hx of PE) TSH low but FT4 normal. EKG showing AFlutter but appears to be back in NSR Monitor on telemetry Continue current medical regiment. (4) Congestive heart failure: Qualifiers: Heart failure chronicity: acute Heart failure type: unspecified Qualified Code(s): I50.9 - Heart failure, unspecified Code(s): I50.9 - Heart failure, unspecified Status: Acute Assessment and Plan: Patient with known diastolic CHF. Echo Sep 2023 showing EF 60-65%, Grade I diastolic dysfxn, RV dilation and reduced fxn, moderate TR and moderate pulm HTN. Probably with right sided failure as well. CXR showing mild interstitial edema, BNP >30K. No Troponin drawn. EKG reviewed showing sinus tachycardia (106) and minor T wave changes in the high lateral leads Concern for acute on chronic diastolic CHF Lasix IV started. previous cxr showing improvement. off iv lasix now (5) CKD (chronic kidney disease): Code(s): N18.9 - Chronic kidney disease, unspecified Status: Acute Assessment and Plan: Patient with normal renal function in 2021 but Cr 1-1.3 in September 2023 Cr 1.3 on admission felt to be at baseline Cr 1.3 today. Monitor renal function, UOP and electrolytes. (6) Pulmonary embolism: Code(s): I26.99 - Other pulmonary embolism without acute cor pulmonale Status: Acute Assessment and Plan: Hx of PE. Currently on Eliquis. Continue the same (7) Tobacco abuse: Code(s): Z72.0 - Tobacco use Status: Chronic Assessment and Plan: Patient education about the benefits of smoking cessation (8) Dysphagia: Code(s): R13.10 - Dysphagia, unspecified Status: Acute Assessment and Plan: Speech therapy evaluation showing patient can swallow safely and recommended soft and bite sized Change to an regular diet to allow for my choice Plan GI prophylaxis: On her home Pepcid but with nausea so will change to Protonix since on steroids, anticoagulation DVT prophylaxis: On home Eliquis; INR elevated 2.4 probably related to malnutrition Code Status: DNR Hyperkalemia give a dose of Lokelma today. Subjective Date/time seen: 11/14/23 12:32 Interval
[2023-11-14 13:56] LABS: Alveolar/Arterial O2 Gradient 307.6 mmHg; Base Excess ABG 12.3 mEq/l (+/-2.0); Fractional Inspired Oxygen 60 %; HCO3 ABG 39.1 mEq/l (22.0-26.0); Oxygen Content ABG 17.2 %vol (16.0-22.0); Oxygen Saturation ABG 88.3 % (95.0-100.0); PCO2 ABG 59.9 mmHg (35.0-45.0); PO2 ABG 54.3 mmHg (80.0-100.0); pH ABG 7.433 (7.350-7.450)
[2023-11-14 13:57] LABS: Device NON-INVASIVE VENT; Oxyhemoglobin 87.4 % THb (90.0-100.0); Site Drawn LEFT BRACHIAL
[2023-11-14 13:58] LABS: Non-Invasive Expiratory Pressure 5 CMH2O; Non-Invasive Vent Rate 16 /MIN
[2023-11-14] MEDS: BARICITINIB 2 MG TABLET 4 MG PO (14:54)
--- NOTE | 2023-11-14 16:23 | PCPTNOTE ---
Attempted to see patient 2x today for PT, however due to increased need for BIPAP PT held for today. PT will continue to follow per plan of care.
--- NOTE | 2023-11-14 21:13 | PC.NURSE ---
Patient ripped apart bipap and is refusing to have replaced. Spoke with Andrea Arriola RN and expressed wishes to be let go. Patient is alert and oriented, wants no further treatment and accepts this means she will . Respiratory in room to administer breathing treatment and patient asks to be made comfortable. This RN spoke with patient and stated we would call family to make them aware that she wants to be made comfortable and may pass tonight, pt is agreeable. Spoke with Kenyatta LEBLANC who wants family spoken to before entering comfort measure orders. This nurse spoke with son Rashid and daughter in law who are agreeable to patients wishes. Kenyatta Bolanos informed and will enter comfort measure orders.
--- NOTE | 2023-11-14 21:24 | PC.NURSE ---
Addendum entered by Michelle Cortez RN 11/14/23 21:25: Kenyatta Bolanos informed of change in plans. Original Note: Family called patient and talked her into holding on for 2 more days so family can see her. Patient states she will try the bipap again. Explained she needs to keep the bipap on and no longer remove it.
[2023-11-14] MEDS: REMDESIVIR 100 MG/NS 250 ML 100 MG/250 ML BAG 250 MG IVPB (21:26)
--- NOTE | 2023-11-14 21:39 | PC.NURSE ---
RN (self) checked on patient approx 193 due to O2 saturation levels being low, found patient on 15L High Flow cannula on the bridge of her nose, not in it. Discussed with patient that patient needed to be back on Bi-pap if her saturation levels didn't increase and if she didn't keep the O2 in her nose. RN stayed with patient until sats returned to around 89-90%. Patient was found closer to 1999 to be sat low again, RN advised patient it was time to wear the bi-pap again. Patient was agreeable but was making statements that it is her time to go and that we should just let her . After oxygen saturation rates returned to low 90's on bi-pap RN advised patient she (self) would be back to see her with night time medications later. RN returned to room to see patient after 2099 as patient was talking to her family and deciding if she wanted to give up or continue on the bi-pap for two more days as the family was asking her to do. Ultimately the patient decided to continue with our care. Patient took all night time medications and is currently wearing the bi-pap. Reinforcement of compliance of bi-pap was completed with the patient.
--- NOTE | 2023-11-14 23:08 | PC.NURSE ---
RN (self) and a second RN, Andrea, assessed patient who was/is on 15L HF nasal canula. Patient is refusing the bi-pap and does not want to wear it at all. Patient is alert to self, place and is aware of the repercussions of not wearing the bi-pap and that the HF canula and her continuing to remove the canula are not life sustaining. Patient reiterated that she is tired and is ready to go. Patient stated she wanted to be on comfort care, no more treatment. RN advised that provider would be notified for orders and that RN would also call her family. RN notifed the city clerk, Michelle. RN called and spoke with [id number] Nesha and son Rashid at 2255 - updated on the patient's health decline and decision to be placed on comfort care. The family understood patient's wishes and asked to be informed when the patient passes. Patient's son, Adama, who lives in [facility] called after speaking with Rashid at 2300. RN explained the same situation to this son that the patient's health is quickly declining and the patient is refusing bi-pap treatment and that without adequate oxygen the patient will not be able to sustain quality of life. He asked if the patient was able to make this decision, explained that yes the patient is alert and oriented and able to make her own decisions. RN explained comfort care and he was agreeable. Asked to speak with the patient, phone call was transferred to patient. Provider was notified to place orders for comfort care.
[2023-11-14] MEDS: MORPHINE SULFATE (*CRX) 2 MG/ML INJ IV PUSH (23:56)
[2023-11-14] MEDS: LORazepam INJ (*CRX) 2 MG/ML VIAL 1 MG IV PUSH (23:57)
[2023-11-15] VITALS (7 sets, daily range): BP systolic 142; BP diastolic 79; PULSE 94–104; RESP 26; TEMP 37.7; O2SAT 78–88
[2023-11-15] MEDS: SCOPOLAMINE 1 MG PATCH 1 PATCH TRANSDERM (00:01)
--- NOTE | 2023-11-15 00:05 | PC.NURSE ---
Adama, patient's son called at [phone], went over what comfort measures would include. Discussed patient's health status and continued decline. Offered empathy and support to Adama. Admin comfort medications to patient at 2356. Will continue to monitor patient closely. Family is getting information for a home.
--- NOTE | 2023-11-15 00:29 | PM.EVENT ---
Event Note Event Note Event Note: 11/14/2023 I received several calls from the patient's nurse throughout the evening. The patient has essentially been BiPAP dependent and voiced to the nurse that she no longer wanted to continue with aggressive treatment. This was discussed with her children and she opted for comfort measures. She is alert and oriented x4 and children are in agreement. BiPAP has been removed and she has been placed on a non-rebreather. Therapeutic interventions will be discontinued and comfort measures have been ordered. Lorazepam, morphine, and scopolamine available as needed for comfort.
[2023-11-15] MEDS: LORazepam INJ (*CRX) 2 MG/ML VIAL 1 MG IV PUSH ×3 (03:23→21:42)
[2023-11-15] MEDS: MORPHINE SULFATE (*CRX) 2 MG/ML INJ IV PUSH ×3 (03:24→21:41)
--- NOTE | 2023-11-15 08:52 | PC.NURSE ---
This patient, Dorene Pathak, was received from IMU on 11/15/23 at 0852. Patient/family oriented to unit policies and routines
--- NOTE | 2023-11-15 11:38 | PC.NURSE ---
This patient, Dorene Pathak, was transferred to [facility] on 11/15/23 at 0843. Personal belongings sent with patient. Report given to Ashley CALIXTO. Appropriate documentation sent with patient.
--- NOTE | 2023-11-15 14:49 | PM.IMPN ---
Progress Note: A&P Assessment and Plan (1) Acute and chronic respiratory failure: Code(s): J96.20 - Acute and chronic respiratory failure, unspecified whether with hypoxia or hypercapnia Status: Acute Assessment and Plan: Patient brought in from home for shortness of breath and noted to have SpO2 70's. Normally on 4L NC. She refused ABGs in ED. CXR showing mild interstitial edema with bibasilar scarring/atelectasis and trace right pleural effusion. COVID positive. Influenza, RSV PCR negative. Treated with Solu-Medrol and bronchodilators. BiPAP started. Etiology 2nd to COVID and COPD exacerbation. Consider bacterial PNA and/or CHF. Doubt PE since on Eliquis Switched to Decadron. Remdesivir and baricitinib added. Pt is now on 15 liters of oxygen BIPAP by her bed Pt is alternating Bipap with high flow when she eats Pulmonary on board Added spirometry Family and patient transition to comfort measures. (2) COVID-19: Code(s): U07.1 - COVID-19 Status: Acute Assessment and Plan: COVID positive on admission. Started on Remdesivir and Decadron. Given the severity, we added baricitinib; side effects discussed with patient and family and both were agreeable to start this Improving now Continue Decadron, Remdesivir and baricitinib Continue bronchodilators. Supportive care CTA with mucus plugging and pneumonia but no PE. Added Mucinex (3) Afib: Code(s): I48.91 - Unspecified atrial fibrillation Status: Acute Assessment and Plan: Patient went into AFib. Notation that she had AFib in the past (see 2021 notes). No EKG confirming AFib in the past but on Eliquis and diltiazem on admission. (Eliquis also for hx of PE) TSH low but FT4 normal. EKG showing AFlutter but appears to be back in NSR Monitor on telemetry Continue current medical regiment. (4) Congestive heart failure: Qualifiers: Heart failure chronicity: acute Heart failure type: unspecified Qualified Code(s): I50.9 - Heart failure, unspecified Code(s): I50.9 - Heart failure, unspecified Status: Acute Assessment and Plan: Patient with known diastolic CHF. Echo Sep 2023 showing EF 60-65%, Grade I diastolic dysfxn, RV dilation and reduced fxn, moderate TR and moderate pulm HTN. Probably with right sided failure as well. CXR showing mild interstitial edema, BNP >30K. No Troponin drawn. EKG reviewed showing sinus tachycardia (106) and minor T wave changes in the high lateral leads Concern for acute on chronic diastolic CHF Lasix IV started. previous cxr showing improvement. off iv lasix now (5) CKD (chronic kidney disease): Code(s): N18.9 - Chronic kidney disease, unspecified Status: Acute Assessment and Plan: Patient with normal renal function in 2021 but Cr 1-1.3 in September 2023 Cr 1.3 on admission felt to be at baseline Cr 1.3 today. Monitor renal function, UOP and electrolytes. (6) Pulmonary embolism: Code(s): I26.99 - Other pulmonary embolism without acute cor pulmonale Status: Acute Assessment and Plan: Hx of PE. Currently on Eliquis. Continue the same (7) Tobacco abuse: Code(s): Z72.0 - Tobacco use Status: Chronic Assessment and Plan: Patient education about the benefits of smoking cessation (8) Dysphagia: Code(s): R13.10 - Dysphagia, unspecified Status: Acute Assessment and Plan: Speech therapy evaluation showing patient can swallow safely and recommended soft and bite sized Change to an regular diet to allow for my choice Plan GI prophylaxis: On her home Pepcid but with nausea so will change to Protonix since on steroids, anticoagulation DVT prophylaxis: On home Eliquis; INR elevated 2.4 probably related to malnutrition Code Status: DNR Hyperkalemia given Lokelma Subjective Date/time seen: 11/15/23 14:49 Interval history: Overnight events noted. P
[2023-11-16] MEDS: LORazepam INJ (*CRX) 2 MG/ML VIAL 1 MG IV PUSH (01:14)
[2023-11-16] MEDS: MORPHINE SULFATE (*CRX) 2 MG/ML INJ IV PUSH (01:14)
--- NOTE | 2023-11-16 04:29 | PCDIET ---
0415 body to rupa per cart.
--- NOTE | 2023-11-16 17:46 | PM.DDS ---
Discharge Summary Date and Time Date of : 11/16/23 Time of : 02:20 Provider Pronounced By: Rosamaria Lin RN Probable Cause of Probable Cause of : Respiratory failure/COVID pneumonia Summary Hospital Course: This is 83-year-old female was brought in from home for shortness of breath and was noted to have a studio 70% initially placed on 4 L nasal cannula. Chest x-ray showed mild interstitial edema with bibasilar scarring/atelectasis and trace right pleural effusion. She was tested positive for COVID influenza and RSV were negative. She was started on Solu-Medrol on bronchodilators. She was also started on BiPAP for hypoxic respiratory failure. Also treated for bacterial pneumonia however her respiratory failure continued to worsen requiring high-flow oxygen and BiPAP. She was also treated with remdesivir and baricitinib along with Decadron. CTA was negative for PE. But did show evidence of mucus plugging and pneumonia. She was continued on Eliquis due to her history of PE in the past. With continued non improvement and worsening respiratory status subsequently comfort measures were implemented. She subsequently during the hospital stay. Additional Data Confirmation of as documented by pronouncing clinician: Pupillary Reflex, Palpable Pulses, Response to Stimuli, Heart Tones and Breath Sounds Name of Provider Notified: Bruce Still Time Provider Notified: 02:35 Provider Requests Autopsy: No Family Requests Autopsy: No Pantograph Transferrer Notified: Yes Date [facility] Notified of : 11/16/23 Time [facility] Notified of : 02:42
== END 2023-11-16 02:20 | disposition expired | DRG 177 ==
LOC: ANHED 17:43 → ANHIMU 21:39 → ANH3MED 11-15 08:41
PROVIDERS: Emergency Medicine; Internal Medicine; Internal Medicine Pulmonary Disease; Admitting Provider General Practice; Emergency Provider Physician Assistant; PCP Internal Medicine; Visit Provider Internal Medicine
DX: U07.1 COVID-19 (principal); I50.33 Acute on chronic diastolic (congestive) heart failure; J96.21 Acute and chronic respiratory failure with hypoxia; J12.82 Pneumonia due to coronavirus disease 2019; J15.9 Unspecified bacterial pneumonia; J96.22 Acute and chronic respiratory failure with hypercapnia; I13.0 Hypertensive heart and chronic kidney disease with heart failure and stage 1 through stage 4 chronic kidney disease, or unspecified chronic kidney disease; J44.0 Chronic obstructive pulmonary disease with (acute) lower respiratory infection; J44.1 Chronic obstructive pulmonary disease with (acute) exacerbation; E46 Unspecified protein-calorie malnutrition; E87.5 Hyperkalemia; N18.9 Chronic kidney disease, unspecified; I48.91 Unspecified atrial fibrillation; R13.10 Dysphagia, unspecified; Z66 Do not resuscitate; E78.5 Hyperlipidemia, unspecified; F17.210 Nicotine dependence, cigarettes, uncomplicated; Z89.512 Acquired absence of left leg below knee; Z86.711 Personal history of pulmonary embolism; Z99.81 Dependence on supplemental oxygen; Z79.01 Long term (current) use of anticoagulants; Z68.23 Body mass index [BMI] 23.0-23.9, adult
CPT/HCPCS: 36415; 36600; 71045; 71275; 80048; 80053; 80076; 82248; 82805; 82948; 83735; 83880; 84145; 84439; 84443; 84480; 85025; 85610; 86140; 87637; 92610; 93005; 94002; 94003; 94640; 96365; 96367; 96375; 97161; 97166; 99291; A9270; C9113; G0378; J0248; J0456; J0696; J1100; J1940; J2060; J2270; J2405; J8540; Q9967